=== PATIENT | male | born 1960 | race Caucasian/White ===

== ENCOUNTER → 2016-12-13 | Outpatient (CLI) | payer OTHER, SELFPAY ==
--- NOTE | 2016-12-15 13:26 | P.ARTDOP ---
Arterial Doppler LOWER EXTREMITY ARTERIAL DOPPLER: DATE OF SERVICE: 12/13/2016 Reason for study: Suspect PVD. Doppler waveforms: Multiphasic bilaterally except at the digital level. Pulse volume recording: Blunting distally especially on the left. Pressure gradients: Mild gradient below the knee on the right and mild gradient above the knee on the left with moderate gradient below the knee on the left. Ankle-brachial indices: 0.84 on the right and 81 on the left Toe pressures: 100 on the right, 80 on the left Impression: Mild infrapopliteal arterial disease on the right. Moderate left fem-pop disease on the left. Clinical correlation recommended.
== END | disposition home or self-care (01) ==
LOC: RADUSWWP 14:08
PROVIDERS: ATTEND Family Medicine
DX: I73.89 Other specified peripheral vascular diseases (principal)
CPT/HCPCS: 93923

== ENCOUNTER → 2018-11-02 | Outpatient (CLI) | payer OTHER ==
--- NOTE | 2018-11-02 16:01 | XR ---
EXAMINATION TYPE: XR chest 2V DATE OF EXAM: 11/02/2018 COMPARISON: 08/07/2015 HISTORY: Shortness of breath for one year TECHNIQUE: Frontal and lateral views of the chest are obtained. FINDINGS: There is new mild pulmonary vascular congestion in comparison to the prior. Heart size is mildly enlarged. No sizable pneumothorax or pleural effusion. Osseous structures are grossly intact. IMPRESSION: New mild pulmonary vascular congestion and mild cardiomegaly suggests underlying congest ken heart failure. Echocardiogram could be performed on a nonemergent basis.
== END | disposition home or self-care (01) ==
LOC: RADXRMAIN 13:56
PROVIDERS: ATTEND Family Medicine
DX: I51.7 Cardiomegaly (principal); I99.8 Other disorder of circulatory system
CPT/HCPCS: 71046

== ENCOUNTER 2018-11-17 22:41 | Inpatient (IN) | payer OTHER ==
[2018-11-17] MEDS ORDERED: SODIUM CHLORIDE 0.9% 1,000 ML IV STA (23:13)
[2018-11-17] MEDS ORDERED: DILTIAZEM DRIP BOLUS FROM BAG 1 MG SOLN IV ONE (23:13)
[2018-11-17] MEDS ORDERED: ASPIRIN 81 MG PO STA (23:13)
[2018-11-17] MEDS ORDERED: ENOXAPARIN 120 MG/0.8 ML SYRINGE SQ STA (23:14)
--- NOTE | 2018-11-17 23:22 | ED ---
Chest Pain HPI - General Chief Complaint: Chest Pain Stated Complaint: Chest Pain Time Seen by Provider: 11/17/18 22:51 Source: patient Mode of arrival: ambulatory Limitations: no limitations - History of Present Illness Initial Comments: This patient is a 58-year-old man who presents to be evaluated for chest pain, palpitations, dyspnea. The patient states that around 10 PM he was lying on the couch when he noticed that his heart started racing and he was having chest pain. He indicates the left chest. States it feels heavy. It is moderate intensity. He has not noted worsening or relieving factors. It is associated with shortness of breath. It does radiate to both arms. The patient denies history of previous heart disease other than hypertension. The patient did state that he had a 2-D echocardiogram performed in the hospital today. MD Complaint: chest pain Onset/Timin -: hour(s) Onset: during rest Pain Location: left chest Pain Radiation: RUE, LUE Severity: moderate Quality: heaviness Consistency: constant Improves With: nothing Worsens With: nothing Anginal Symptoms: dyspnea Treatments Prior to Arrival: none - Related Data Home Medications Medication Instructions Recorded Confirmed Lisinopril [Zestril] 20 mg PO TID 05/23/14 11/18/18 amLODIPine [Norvasc] 10 mg PO DAILY 05/23/14 11/18/18 Potassium Chloride 8 meq PO DAILY 11/17/18 11/18/18 Budesonide/Formoterol Fumarate 2 puff INHALATION RT-BID 11/18/18 11/18/18 [Symbicort 160-4.5 Mcg Inhaler] Cilostazol [Pletal] 100 mg PO BID 11/18/18 11/18/18 Furosemide [Lasix] 40 mg PO DAILY 11/18/18 11/18/18 Metoprolol Tartrate [Lopressor] 50 mg PO BID 11/18/18 11/18/18 Previous Rx's Medication Instructions Recorded Aspirin 81 mg PO DAILY #100 chew 11/19/18 Atorvastatin [Lipitor] 80 mg PO HS #30 tab 11/19/18 Clopidogrel [Plavix] 75 mg PO DAILY #30 tab 11/19/18 Nitroglycerin Sl Tabs [Nitrostat] 0.4 mg SUBLINGUAL Q5M PRN #20 tab 11/19/18 Rivaroxaban [Xarelto] 15 mg PO DAILY #30 tab 11/19/18 Allergies Allergy/AdvReac Type Severity Reaction Status Date / Time No Known Allergies Allergy Verified 11/17/18 23:33 Review of Systems ROS Statement: Those systems with pertinent positive or pertinent negative responses have been documented in the HPI. ROS Other: All systems not noted in ROS Statement are negative. Constitutional: Denies: fever, chills Respiratory: Reports: dyspnea. Denies: cough, wheezes Cardiovascular: Reports: chest pain, palpitations. Denies: orthopnea, edema, syncope Gastrointestinal: Denies: abdominal pain, nausea, vomiting Genitourinary: Denies: dysuria, hematuria Musculoskeletal: Denies: back pain Skin: Denies: rash Neurological: Denies: headache, weakness, numbness EKG Findings - EKG Results: EKG: interpreted by DUGLASD EKG shows: atrial fibrillation (Rate approximately 141 bpm) - Blocks, Lyons, Hypertrophy, ST Abn: AV and intraventricular conduction: intraventricular conduction delay QRS axis and voltage: right axis deviation (+90 to +180) Past Medical History Past Medical History: Hypertension, Pneumonia Additional Past Medical History / Comment(s): 08/07/15 Pt presented to [facility] ER with having SOB and cough for past 1-2 days. He felt hot and cold. He thougt he had pneumonia. He is being admitted with clinical impression of night sweats , NSTEMI. Other HX: L lower pneumonia 05/23/14, head injury as 4 yr old. History of Any Multi-Drug Resistant Organisms: None Reported Past Surgical History: Appendectomy Additional Past Surgical History / Comment(s): back cyst removed, colonoscopy- normal Past Anesthesia/Blood Transfusion Reactions: No Reported Reaction Additional Past Anesthesia/Blood Transfusion Reaction / Comment(s): Pt has never recieved blood. Past Psychological History: No Psychological Hx Reported Smoking Status: Former smoker Past Alcohol Use History: None Reported, Occasional Past Drug Use History: None Reported - Past Family History Father Family Medical History: Coronary Artery Disease (CAD) Additional Family Medical History / Comment(s): Father had a heart transplant. He in his mid 60's. Mother Family Medical History: Myocardial Infarction ([place]) Additional Family Medical History / Comment(s): Mother is alive and 78yrs old. General Exam Limitations: no limitations General appearance: alert, in no apparent distress, obese Head exam: Present: atraumatic, normocephalic Eye exam: Present: normal appearance. Absent: scleral icterus, conjunctival injection ENT exam: Present: mucous membranes dry Respiratory exam: Present: normal lung sounds bilaterally. Absent: respiratory distress, wheezes, rales, rhonchi, stridor Cardiovascular Exam: Present: tachycardia, irregular rhythm, normal heart sounds. Absent: systolic murmur, diastolic murmur, rubs, gallop GI/Abdominal exam: Present: soft. Absent: distended, tenderness, guarding, rebound, rigid, mass Extremities exam: Present: normal inspection, normal capillary refill. Absent: pedal edema, calf tenderness Back exam: Present: normal inspection. Absent: CVA tenderness (R), CVA tenderness (L) Neurological exam: Present: alert Skin exam: Present: warm, dry, intact, normal color. Absent: rash Course Vital Signs 11/17/18 11/17/18 11/18/18 22:42 23:01 01:03 Temperature 98.2 F Pulse Rate 142 H 96 Pulse Rate [ 140 H Apical] Respiratory 28 H 18 Rate Blood Pressure 188/95 142/88 O2 Sat by Pulse 97 96 Oximetry 11/18/18 01:25 Temperature 98.5 F Pulse Rate Pulse Rate [ Apical] Respiratory Rate Blood Pressure O2 Sat by Pulse Oximetry Chest Pain [facility] Patient is a 58-year-old man presenting with acute onset of chest pain and palpitations. He is found to be in new onset of atrial fibrillation and a rapid ventricular rate. We did obtain rate control and he did revert. And his symptoms had also resolved with medication. Patient is asymptomatic and initial troponin negative at time of admission. Critical Care Time Critical Care Time: Yes (40 minutes) Disposition Clinical Impression: Atrial fibrillation with rapid ventricular response, Chest pain Disposition: ADMITTED IP TO THIS HOSP Condition: Fair
--- NOTE | 2018-11-17 23:28 | XR ---
EXAMINATION TYPE: XR chest 1V portable DATE OF EXAM: 11/17/2018 COMPARISON: 11/02/2018 HISTORY: Dysrhythmia. TECHNIQUE: Single frontal view of the chest is obtained. FINDINGS: Heart size is normal. There is some coarse density in the lower lung newman consistent wit h scarring and patchy atelectasis. There is no heart failure. There are chest leads. Costophrenic ang les are fairly clear. IMPRESSION: Patchy atelectasis at the lung bases increased compared to last exam. No heart failure.
[2018-11-17 23:29] LABS: Basophils % (A) 1 %; Eosinophils # (A) 0.2 k/uL (0-0.7); Eosinophils % (A) 2 %; HCT 51.7 % (39.0-53.0); HGB 17.4 gm/dL (13.0-17.5); Lymphocytes # (A) 1.5 k/uL (1.0-4.8); Lymphocytes % (A) 19 %; MCHC 33.6 g/dL (31.0-37.0); MCV 80.3 fL (80.0-100.0); Mean Platelet Volume 6.9; Monocytes # (A) 0.8 k/uL (0-1.0); Monocytes % (A) 10 %; Neutrophils # (A) 4.9 k/uL (1.3-7.7); Neutrophils % (A) 65 %; Platelet Count 199 k/uL (150-450); RBC 6.44 m/uL (4.30-5.90); RDW 14.6 % (11.5-15.5); WBC 7.6 k/uL (3.8-10.6)
[2018-11-17] MEDS: DILTIAZEM 50 MG in SODIUM CHLORIDE 0.9% 40 ML IV SCH (23:31)
[2018-11-17 23:42] LABS: Albumin 4.4 g/dL (3.5-5.0); Calcium 9.6 mg/dL (8.4-10.2); Magnesium 1.8 mg/dL (1.6-2.3); Potassium 3.1 mmol/L (3.5-5.1); Total Bilirubin 0.6 mg/dL (0.2-1.3); Total Protein 8.2 g/dL (6.3-8.2)
[2018-11-17 23:44] LABS: D-Dimer 0.36 mg/L FEU (<0.60); INR 0.9 (<1.2); Partial Thromboplastin Time 25.2 sec (22.0-30.0); Prothrombin Time 9.5 sec (9.0-12.0)
[2018-11-17 23:46] LABS: Creatine Kinase 77 U/L (55-170)
[2018-11-17 23:59] LABS: Creatine Kinase MB 0.6 ng/mL (0.0-2.4); Troponin I <0.012 ng/mL (0.000-0.034)
[2018-11-18] LABS: Appearance,Urine Clear (Clear); Bilirubin,Urine Negative (Negative); Blood,Urine Small (Negative); Color,Urine Light Yellow; Glucose,Urine (UA) Negative (Negative); Hyaline Casts,Urine 1 /lpf (0-2); Ketones,Urine 1+ (Negative); Leukocyte Esterase,Urine Negative (Negative); Mucus,Urine Rare /hpf; Nitrite,Urine Negative (Negative); PH, Urine 6.5 (5.0-8.0); Protein,Urine 1+ (Negative); RBC,Urine 2 /hpf (0-5); Specific Gravity,Urine 1.011 (1.001-1.035); Urobilinogen,Urine <2.0 mg/dL (<2.0)
[2018-11-18] MEDS ORDERED: IBUPROFEN 400 MG TAB PO STA (00:10)
[2018-11-18] MEDS ORDERED: DILTIAZEM DRIP BOLUS FROM BAG 1 MG SOLN IV ONE (00:10)
[2018-11-18 00:15] LABS: Amphetamine Screen,Urine Not Detected (NotDetected); Barbiturate Screen,Urine Not Detected (NotDetected); Benzodiazepines Screen,Urine Not Detected (NotDetected); Cocaine Screen,Urine Not Detected (NotDetected); Methadone Screen, Urine Not Detected (NotDetected); Opiate Screen,Urine Not Detected (NotDetected); Oxycodone Screen, Urine Not Detected (NotDetected); Phencyclidine Screen,Urine Not Detected (NotDetected); Tricyclic Antidepressant,Urine Not Detected (NotDetected); Urn Cannabinoid Scrn Not Detected (NotDetected)
[2018-11-18] MEDS ORDERED: POTASSIUM BICARBONATE/CIT AC 20 MEQ TABLET.EFF PO ONE (00:23)
[2018-11-18] MEDS ORDERED: NITROGLYCERIN SL TABS 0.4 MG TAB SUBLINGUAL PRN ×3 (00:24→16:15)
[2018-11-18 01:57] VITALS: BMI 35.9
[2018-11-18] MEDS: DILTIAZEM 50 MG in SODIUM CHLORIDE 0.9% 40 ML IV SCH (03:14)
[2018-11-18 05:57] LABS: Creatine Kinase MB 2.8 ng/mL (0.0-2.4)
[2018-11-18 06:14] LABS: Calcium 9.6 mg/dL (8.4-10.2); Potassium 3.2 mmol/L (3.5-5.1)
[2018-11-18 06:16] LABS: Troponin I 0.112 ng/mL (0.000-0.034)
[2018-11-18] MEDS: amLODIPine 10 MG TAB PO SCH (08:10)
[2018-11-18] MEDS: LISINOPRIL 20 MG TAB PO SCH ×3 (08:10→20:47)
[2018-11-18] MEDS ORDERED: POTASSIUM CHLORIDE 8 MEQ PO SCH (09:00)
[2018-11-18] MEDS ORDERED: METOPROLOL TARTRATE 25 MG TAB PO SCH (09:00)
--- NOTE | 2018-11-18 09:37 | P.CRDCN ---
History of Present Illness Consult date: 11/18/18 Requesting physician: Armen Aguirre Consult reason: atrial fibrillation Chief complaint: Chest discomfort, heart racing History of present illness: This is a 58-year-old gentleman with history of hypertension, prior nicotine dependence, nondiabetic, no hyperlipidemia, strong family history of premature coronary artery disease in both of his parents and his brother, he also has a history of knee surgery in March of this year to the left knee, patient also states that he's been diagnosed with a blood clot in his legs and has been on a blood thinner for the past 2 years. He is unsure exactly of the medications he takes, he does get his prescriptions filled at [facility] so we will get a list of these. He also states that he follows with Dr. Esposito as his primary care doctor. According to the patient, since March of this year he states that he's been retaining fluid and is put on significant amount of weight , he also states that he's been mildly short of breath inmonths. He was started on an inhaler recently. He states that he was also over the past one week initiated on diuretics and potassium. He states that he's been urinating a significant amount and his weight has been coming down significantly. Patient was scheduled to undergo an echocardiogram with Doppler study yesterday afternoon which she had performed here at the hospital, he went home and at around 10:00 last night he states that he felt some chest discomfort and his heart was racing fast. He was mildly dizzy. Earlier in the day he states he generally just did not feel well but did not notice palpitations or chest discomfort earlier. Chest x-ray on arrival here atelectasis at the lung base. EKG on arrival here showed atrial fibrillation with rapid ventricular response. Blood pressure on arrival here 188/90, heart rate 140, 97% on room air. Blood pressure this morning 128/60 with a heart rate in the 60s, 92% on room air. White blood cell count 7.6, hemoglobin 17.4, platelet count 199. Sodium 136, potassium 3.2 this morning, BUN 38 and creatinine 1.5. On admission the potassium was 3.1, BUN 39 and creatinine 1.8. Magnesium 1.8. Initial troponin 0.012, subsequent troponin 0.112. TSH 2.9. Drug screen negative. Past Medical History Past Medical History: Hypertension, Pneumonia Additional Past Medical History / Comment(s): 08/07/15 Pt presented to [facility] ER with having SOB and cough for past 1-2 days. He felt hot and cold. He thougt he had pneumonia. He is being admitted with clinical impression of night sweats , NSTEMI. Other HX: L lower pneumonia 05/23/14, head injury as 4 yr old. History of Any Multi-Drug Resistant Organisms: None Reported Past Surgical History: Appendectomy Additional Past Surgical History / Comment(s): back cyst removed, colonoscopy- normal Past Anesthesia/Blood Transfusion Reactions: No Reported Reaction Additional Past Anesthesia/Blood Transfusion Reaction / Comment(s): Pt has never recieved blood. Past Psychological History: No Psychological Hx Reported Smoking Status: Former smoker Past Alcohol Use History: None Reported, Occasional Past Drug Use History: None Reported - Past Family History Father Family Medical History: Coronary Artery Disease (CAD) Additional Family Medical History / Comment(s): Father had a heart transplant. He in his mid 60's. Mother Family Medical History: Myocardial Infarction ([place]) Additional Family Medical History / Comment(s): Mother is alive and 78yrs old. Medications and Allergies Home Medications Medication Instructions Recorded Confirmed Type Lisinopril [Zestril] 20 mg PO TID 05/23/14 11/17/18 History amLODIPine [Norvasc] 10 mg PO DAILY 05/23/14 11/17/18 History Metoprolol Tartrate [Lopressor] 25 mg PO BID 08/07/15 11/17/18 History Potassium Chloride 8 meq PO DAILY 11/17/18 11/17/18 History Allergies Allergy/AdvReac Type Severity Reaction Status Date / Time No Known Allergies Allergy Verified 11/17/18 23:33 Physical Exam Vitals: Vital Signs Temp Pulse Pulse Resp BP BP Pulse Ox 11/18/18 04:00 97.0 F L 64 17 129/59 92 L 11/18/18 01:39 97.2 F L 80 18 143/64 93 L 11/18/18 01:25 98.5 F 11/18/18 01:03 96 18 142/88 96 11/17/18 23:01 140 H 11/17/18 22:42 98.2 F 142 H 28 H 188/95 97 Intake and Output 11/17/18 11/18/18 11/18/18 22:59 06:59 14:59 Intake Total 18.583 Balance 18.583 Intake: Intake, IV Titration 18.583 Amount Diltiazem 50 mg In Sodium 18.583 Chloride 0.9% 40 ml @ 5 MG/HR 5 mls/hr IV .Q10H [facility] Rx#:[id number] Other: Voiding Method Toilet # Voids 1 Weight 113.398 kg 114.97 kg PHYSICAL EXAMINATION: GENERAL: 58-year-old gentleman in no acute distress at the time of my examination HEENT: Head is atraumatic, normocephalic. Pupils equal, round. Sclera anicteric. Conjunctiva are clear. Mucous membranes of the mouth are moist. Neck is supple. There is no elevated jugular venous pressure. No carotid bruit is heard. HEART EXAMINATION: Heart S1, S2 normal. No murmur or gallop heard. CHEST EXAMINATION: Lungs are clear to auscultation and precussion. No chest wall tenderness is noted on palpation or with deep breathing. ABDOMEN: Soft, obese, nontender. Bowel sounds are heard. No organomegaly noted. EXTREMITIES: 2+ peripheral pulses with trace evidence of peripheral edema, right leg greater than left, no calf tenderness noted. NEUROLOGIC patient is awake, alert and oriented 3. . Results 11/17/18 22:37 11/18/18 06:00 Cardiac Enzymes 11/17/18 11/17/18 11/18/18 Range/Units 22:37 22:37 04:32 AST 27 (17-59) U/L CK-MB (CK-2) 0.6 2.8 H (0.0-2.4) ng/mL Troponin I <0.012 0.112 H* (0.000-0.034) ng/mL Coagulation 11/17/18 Range/Units 22:37 PT 9.5 (9.0-12.0) sec APTT 25.2 (22.0-30.0) sec CBC 11/17/18 Range/Units 22:37 WBC 7.6 (3.8-10.6) k/uL RBC 6.44 H (4.30-5.90) m/uL Hgb 17.4 (13.0-17.5) gm/dL Hct 51.7 (39.0-53.0) % Plt Count 199 (150-450) k/uL Comprehensive Metabolic Panel 11/17/18 11/18/18 Range/Units 22:37 06:00 Sodium 139 136 L (137-145) mmol/L Potassium 3.1 L 3.2 L (3.5-5.1) mmol/L Chloride 98 101 (98-107) mmol/L Carbon Dioxide 27 24 (22-30) mmol/L BUN 39 H 38 H (9-20) mg/dL Creatinine 1.89 H 1.50 H (0.66-1.25) mg/dL Glucose 138 H 130 H (74-99) mg/dL Calcium 9.6 9.6 (8.4-10.2) mg/dL AST 27 (17-59) U/L ALT 42 (21-72) U/L Alkaline Phosphatase 141 H (38-126) U/L Total Protein 8.2 (6.3-8.2) g/dL Albumin 4.4 (3.5-5.0) g/dL Current Medications Generic Name Dose Route Start Last Admin Trade Name Freq PRN Reason Stop Dose Admin Amlodipine Besylate 10 mg 11/18/18 09:00 11/18/18 08:10 Norvasc PO 10 mg DAILY ZANDRA Administration Aspirin 325 mg 11/19/18 09:00 Aspirin PO DAILY [facility] Diltiazem HCl 50 mg/ Sodium 50 mls @ 5 mls/hr 11/17/18 23:15 11/18/18 03:14 Chloride IV 5 mg/hr .Q10H ZANDRA 5 mls/hr Administration 5 MG/HR Lisinopril 20 mg 11/18/18 09:00 11/18/18 08:10 Zestril PO 20 mg TID ZANDRA Administration Metoprolol Tartrate 25 mg 11/18/18 09:00 11/18/18 08:10 Lopressor PO 25 mg BID ZANDRA Administration Nitroglycerin 0.4 mg 11/18/18 00:24 Nitrostat SUBLINGUAL Q5M PRN Chest Pain Potassium Chloride [ 8 meq 11/18/18 09:00 11/18/18 08:10 Potassium Chloride] PO Not Given 8 Meq DAILY ZANDRA Intake and Output 11/17/18 11/18/18 11/18/18 22:59 06:59 14:59 Intake Total 18.583 Balance 18.583 Intake: Intake, IV Titration 18.583 Amount Diltiazem 50 mg In Sodium 18.583 Chloride 0.9% 40 ml @ 5 MG/HR 5 mls/hr IV .Q10H [facility] Rx#:[id number] Other: Voiding Method Toilet # Voids 1 Weight 113.398 kg 114.97 kg 11/17/18 22:37 11/18/18 06:00 EKG Interpretations (text) EKG on admission showed atrial fibrillation with rapid ventricular response on specific ST-T wave changes Assessment and Plan Plan: Assessment and plan #1 symptoms of chest discomfort with associated heart racing and palpitations. EKG on admission showed atrial fibrillation with rapid ventricular response, patient currently in normal sinus rhythm. Initial troponin 0.012, subsequent troponin 0.112. Patient had an echo performed in the hospital yesterday which revealed a normal left ventricular systolic function. TSH is normal. CTA negative for pulmonary embolism. D-dimer negative. #2 Hypokalemia, being replaced #3 renal insufficiency, likely secondary to dehydration and recent use of Lasix. Creatinine yesterday 1.8, 1.5 this morning. #4 hypertension, uncontrolled #5 new-onset atrial fibrillation, rapid ventricular response, paroxysmal. Currently in normal sinus rhythm. TSH 2.9. #6 hyperlipidemia, untreated #7 history of DVT for which patient takes a blood thinner, he is unsure at this time of what blood thinner it is, we'll verify medications. #8 strong family history of premature coronary artery disease #9 recent left knee surgery in March of this year #10 abnormality in troponin, could be secondary to A. fib with RVR, we will obtain a third set. Plan We will continue to replace the patient's potassium. Continue with IV fluids at 50 mL per hour. Obtain a third troponin value. I also discussed the importance of being on anticoagulation for stroke prevention with the patient. Further recommendations will be based on these findings and patient's clinical course. DNP note has been reviewed, I agree with a documented findings and plan of care. Patient was seen and examined.
[2018-11-18] MEDS ORDERED: ATORVASTATIN 80 MG TAB PO STA (10:09)
[2018-11-18] MEDS ORDERED: ALPRAZolam 0.5 MG TAB PO PRN (10:09)
[2018-11-18] MEDS ORDERED: ALPRAZolam 0.25 MG TAB PO PRN (10:09)
[2018-11-18] MEDS ORDERED: ASPIRIN 325 MG TAB PO STA (10:09)
[2018-11-18] MEDS ORDERED: SODIUM CHLORIDE 0.9% 1,000 ML in EMPTY BAG 1 BAG IV ONE (10:09)
[2018-11-18] MEDS ORDERED: HEPARIN SODIUM,PORCINE 5,000 UNIT/ML 1 ML VIAL IV PRN (10:11)
[2018-11-18] MEDS ORDERED: HEPARIN SODIUM,PORCINE 5,000 UNIT/ML 1 ML VIAL IV ONE (10:11)
[2018-11-18] MEDS ORDERED: HEPARIN SOD,PORK IN 0.45% NACL 25,000 UNIT in 0.45% NACL 1 250ML.BAG IV SCH (10:15)
[2018-11-18 10:49] LABS: Creatine Kinase MB 3.7 ng/mL (0.0-2.4)
[2018-11-18 11:00] LABS: Troponin I 0.291 ng/mL (0.000-0.034)
[2018-11-18 11:00] LABS: Basophils % (A) 1 %; Eosinophils # (A) 0.1 k/uL (0-0.7); Eosinophils % (A) 2 %; HCT 47.3 % (39.0-53.0); HGB 15.3 gm/dL (13.0-17.5); Lymphocytes # (A) 1.2 k/uL (1.0-4.8); Lymphocytes % (A) 22 %; MCH 26.2 pg (25.0-35.0); MCHC 32.3 g/dL (31.0-37.0); MCV 81.2 fL (80.0-100.0); Mean Platelet Volume 6.7; Monocytes # (A) 0.4 k/uL (0-1.0); Monocytes % (A) 8 %; Neutrophils # (A) 3.6 k/uL (1.3-7.7); Neutrophils % (A) 66 %; Platelet Count 175 k/uL (150-450); RBC 5.83 m/uL (4.30-5.90); RDW 14.4 % (11.5-15.5); WBC 5.5 k/uL (3.8-10.6)
[2018-11-18 11:10] LABS: INR 0.9 (<1.2); Prothrombin Time 9.9 sec (9.0-12.0)
--- NOTE | 2018-11-18 13:39 | HP ---
HISTORY AND PHYSICAL CHIEF COMPLAINT: Rapid heart beating, dizziness and chest pressure which was thought to be indigestion. HISTORY OF PRESENT ILLNESS: This is the first admission for this 58-year-old white male. He was home when he suddenly developed dizziness and lightheadedness with slight shortness of breath and a slight indigestion and he came to emergency room. He was found to be in atrial fibrillation with rapid ventricular response. He has never had this before. He has never had any history in his life or any palpitations. He has a history of hypertension and he takes lisinopril 20 mg once a day and potassium. He is also on amlodipine 10 mg a day, metoprolol 50 mg twice a day, Lasix 40 mg once a day, Pletal 100 mg b.i.d., chlorthalidone 25 mg once a day, and Symbicort inhaler. In the emergency room, his pulse is around 140, and his blood pressure is 188/95. He had laboratory studies demonstrated normal CBC and his potassium was slightly low at 3.2. His troponin was elevated with a CK-MB which is also slightly high. BUN is 38 with a creatinine 1.5. It is not known if he has renal disease or not. Blood sugar was 130. REVIEW OF SYSTEMS: He has had no CVAs, TIAs, change in vision or hearing, syncope, cough, hemoptysis, pleurisy, sputum production, murmurs, rheumatic fever, history of angina or heart disease, orthopnea, PND, abdominal pain, nausea, vomiting, hematemesis, etc. He does have some trouble with GERD. He has had no diarrhea, diverticulosis, diverticulitis, melena, jaundice, liver disease, etc. He has had no history of renal disease, renal failure, dysuria, frequency, urgency, nocturia, hesitancy, diabetes, etc. PAST MEDICAL HISTORY: Past medical history, family history and personal and social histories are interesting. He has a history of extensive malignancies and heart disease. His father had a heart transplant. They do not know what the underlying pathology was. Mother had CAD. He has a sister and brothers with coronary artery disease as well. There were numerous malignancies in the family also. Surgically he has had a procedure on the left knee and appendectomy and a cyst removed from the back. He is not allergic to anything. He probably has COPD. He used to smoke but he stopped in the recent past. He does not have an alcohol issue. PHYSICAL EXAM: VITAL SIGNS: Blood pressure 129/59 with a pulse that is now down to 64 and respirations of 18. He is afebrile. GENERAL: He appeared to be well developed, well nourished and slightly overweight. Skin color is normal skin is warm, dry. Lymph nodes not enlarged. HEENT: Head, ears, eyes, nose, mouth, and throat were normal neck veins not distended. Thyroid not palpable. Carotids normal. Chest is clear. Cardiac exam demonstrates normal sinus rhythm and no murmurs or extra sounds. The abdomen is slightly protuberant, soft without any masses or visceromegaly. EXTREMITIES: Normal and calves were soft. There is no significant edema. Pulses are good. IMPRESSION: 1. New onset atrial fibrillation with rapid ventricular response. 2. Slight chest pain. 3. Elevated troponin. 4. Chronic obstructive pulmonary disease. 5. History that is compatible with peripheral vascular occlusive disease. PLAN: 1. Bed rest. 2. IV fluids. 3. Serial EKGs and enzymes. 4. Cardiology consult. 5. He had a echocardiogram yesterday. MMODL / IJN: [id number] /
[2018-11-18] MEDS ORDERED: VERAPAMIL 2.5 MG/ML 2 ML AMP ONE (14:06)
[2018-11-18] MEDS ORDERED: LIDOCAINE 1% INJ 10MG/ML (20 ML MDV) ONE (14:06)
[2018-11-18] MEDS ORDERED: fentaNYL (PF) 50 MCG/ML 2 ML AMP ONE (14:11)
[2018-11-18] MEDS ORDERED: IV FLUID CONTINUATION 1,000 ML IV ONE (14:11)
[2018-11-18] MEDS ORDERED: fentaNYL (PF) 50 MCG/ML 2 ML AMP IV ONE (14:15)
[2018-11-18] MEDS ORDERED: MIDAZOLAM 2 MG/2 ML VIAL IV ONE (14:15)
[2018-11-18] MEDS ORDERED: LIDOCAINE 2% INJ 20 MG/ML SQ ONE (14:19)
[2018-11-18] MEDS: VERAPAMIL SYRINGE (5 MG/10 ML) IV ONE ×2 (14:29→16:04)
[2018-11-18] MEDS ORDERED: HEPARIN SODIUM 1,000 UN/ML (10ML VL) ONE (14:30)
[2018-11-18] MEDS ORDERED: HEPARIN SODIUM 1,000 UN/ML (10ML VL) IV ONE (14:30)
--- NOTE | 2018-11-18 15:06 | P.CARDCATH ---
Date of Procedure: 11/18/18 Preoperative Diagnosis: Non-STEMI Postoperative Diagnosis: Triple-vessel disease Procedure(s) Performed: Left heart catheterization without left ventriculography Description of Procedure: HISTORY: This is a 58-year-old gentleman with history of peripheral vascular disease and hypertension who has been experiencing progressive shortness of breath and also edema. He was admitted to the hospital with chest pain and palpitation and was found to be in atrial fibrillation with a rapid ventricular response. His troponins are elevated suggestive of non-ST elevation [place]. Patient is advised to have a cardiac catheterization for definitive diagnosis. CONSENT:I have discussed the risks, benefits and alternative therapies for the above-mentioned procedure and for both sedation/analgesia as well as necessary blood product administration, if indicated, as they pertain to this patient. The patient has indicated understanding and acceptance of the risks and procedures discussed. PROCEDURE: Patient was brought to the lab in a fasting state. Patient was given some IV sedation. The right wrist is infiltrated with lidocaine and right radial artery was entered using Seldinger technique. A 6-Yi catheter was left in place and selective coronary arteriography was performed. Patient tolerated the procedure well. Patient is waiting to be evaluated by Dr. FERN Wade. Patient most probably may need bypass surgery, especially if the LAD lesion is felt to be significant. FFR may be considered for for further evaluation Conscious Sedation: Versed 1mg Fentanyl 50 g Duration 34minutes HEMODYNAMICS: The aortic pressure is about 140/70. The end-diastolic pressure is 25-30. There was no gradient across the aortic valve SELECTIVE CORONARY ARTERIOGRAPHY: LEFT MAIN: This is a long with diffuse mild disease without any critical lesions THE LEFT ANTERIOR DESCENDING CORONARY ARTERY: This is a large caliber vessel with about 60-70% stenosis in the proximal portion followed by an ectatic area. Rest of the LAD is free of occlusive disease THE LEFT CIRCUMFLEX AND IS CORONARY ARTERY:. This is a good caliber vessel giving rise to good-sized OM branch. The OM branch is a 95% stenosis proximally. The main circumflex has diffuse plaque without any critical lesions. There are collaterals from the circumflex to the right THE RIGHT CORONARY ARTERY:. This is totally occluded in the proximal portion. The distal RCA is filled by collateral from the left carotid system consist of small PDA and PLV LEFT VENTRICULOGRAPHY:. This is not performed FINAL IMPRESSION: Triple-vessel disease with total occlusion of the RCA with collaterals from the left system to the distal RCA , critical lesion in the OM branch of the circumflex and intermediate disease in the proximal LAD of about 60-70%. PLAN: Revascularization. If the LAD is felt to be critical, patient may benefit from, a bypass surgery with the GAMBINO graft to the LAD, vein graft to the OM and vein graft to the distal RCA. FFR may be considered to establish the severity of the LAD. Dr. FERN Wade to see the patient for further evaluation PROGNOSIS: Fair
[2018-11-18] MEDS ORDERED: BIVALIRUDIN BOLUS 250 MG/50 ML IV ONE (15:34)
[2018-11-18] MEDS ORDERED: BIVALIRUDIN 250 MG in SODIUM CHLORIDE 0.9% 50 ML IV ONE (15:35)
[2018-11-18] MEDS ORDERED: MORPHINE SULFATE 4 MG/ML SYRINGE ONE (15:41)
[2018-11-18] MEDS: NITROGLYCERIN 1000MCG/10ML SYRINGE INTRACORON ONE ×3 (15:42→16:02)
[2018-11-18] MEDS ORDERED: MORPHINE SULFATE 4 MG/ML SYRINGE IV ONE (15:43)
[2018-11-18] MEDS ORDERED: IOPAMIDOL-370 125ML BTL INJ ONE (15:44)
[2018-11-18] MEDS ORDERED: HYDROmorphone 1 MG/ML 1 ML SYRINGE IVP ONE (15:53)
[2018-11-18] MEDS ORDERED: HYDROmorphone 1 MG/ML 1 ML SYRINGE IVP STA (16:01)
[2018-11-18] MEDS ORDERED: TICAGRELOR 90 MG TAB ONE (16:05)
[2018-11-18] MEDS ORDERED: IOPAMIDOL-370 100ML BTL INJ ONE (16:06)
[2018-11-18] MEDS ORDERED: TICAGRELOR 90 MG TAB PO ONE (16:08)
[2018-11-18] MEDS ORDERED: MAG HYDROX/AL HYDROX/SIMETH 30 ML CUP PO PRN (16:15)
[2018-11-18] MEDS ORDERED: ZOLPIDEM 5 MG TAB PO PRN (16:15)
[2018-11-18] MEDS ORDERED: RX INFO: IV CONTRAST WAS GIVEN 1 EACH MISC MISCELLANE PRN (16:15)
[2018-11-18] MEDS ORDERED: ATROPINE SULFATE 0.1 MG/ML 10ML SYRINGE IV PRN (16:15)
--- NOTE | 2018-11-18 16:50 | ECHOF ---
Referral Reason:afib MEASUREMENTS -------- HEIGHT: 162.6 cm WEIGHT: 114.8 kg BP: FINDINGS -------- Limited Study for LV Function: Echo Done 11/17/18. Overall left ventricular systolic function is normal with, an EF between 55 - 60 %. 5.0mg OF Lumason UTLIZED: 2 OR MORE WALL SEGMENTS NOT VISUALIZED. CONCLUSIONS -------- 1. Limited Study for LV Function: Echo Done 11/17/18. 2. 5.0mg OF Lumason UTLIZED: 2 OR MORE WALL SEGMENTS NOT VISUALIZED. ATTRACTIONS ASSOCIATE: Kaylen Quintanilla RDCS
[2018-11-18] MEDS: SODIUM CHLORIDE 0.9% 1,000 ML IV SCH (18:17)
[2018-11-18] MEDS ORDERED: Potassium Replacement Protocol 1 EACH MISC MISCELLANE PRN (18:56)
--- NOTE | 2018-11-18 19:41 | PTCA ---
PERCUTANEOUSTRANS CORORONARY ANGIOGRAPHY DATE OF SERVICE: 11/18/2018 PROCEDURE: PTCA and stenting of proximal portion of the first obtuse marginal branch of circumflex with a drug-eluting stent. PERFORMED BY: Dr. Haven Wade. SEDATION: Moderate conscious sedation time was 44 minutes. CLINICAL INFORMATION: Mr. Werner Yu is a 58-year-old gentleman with history of hypertension, admitted to the hospital with chest pain, had a troponin elevation suggestive of non-ST elevation [place]. He was seen and evaluated by Dr. Barry who performed a cardiac cath which revealed that the RCA was chronically occluded with collaterals from the left system. LAD had about a 50-55 percent proximal very small lesion and the circumflex marginal had a 95% lesion. This was a very high obtuse marginal. The tunica-biloxi circumflex was providing collaterals to the distal RCA and the tunica-biloxi circumflex had about a 40% lesion. The 1st OM had a 95% lesion with a very tortuous lesion located at a bend. He was advised intervention that was performed in the same setting. The patient's LAD disease was moderate and he would require an FFR later on and intervention if necessary. PROCEDURE NOTE: The existing 6-Omani introducer in the right radial artery was used to perform the procedure. I used a Voda 3.5 left catheter to cannulate the left coronary artery. A run-through wire was used to cross the lesion. I advanced and kept another wire in the circumflex groove branch. A 3.0 caliber 8 mm long NC Trek balloon was used to pre- dilate the lesion. I then deployed a 12 mm long 3.25 caliber Xience stent at 14 atmospheres. The proximal portion of the stent did not open very well. I addressed this with a NC trek 3.25 8 mm, and I was able to expand the stent very nicely. Excellent angiographic result was achieved. Patient had significant chest pain and precordial ST elevation. He received Angiomax bolus and infusion. He also received 180 mg of Brilinta. The sheath was taken out and TR band applied and patient was sent to the room in a stable condition. Excellent angiographic result without complication was achieved. The results were discussed with the patient and his . Moderate conscious sedation time was 44 minutes. Patient was administered Versed, morphine and 1 mg of Dilaudid as well. MMODL / IJN: [id number] /
[2018-11-18] MEDS: SYMBICORT 160-4.5 MCG INHALER INHALATION SCH (20:36)
[2018-11-18] MEDS: POTASSIUM CHLORIDE ER 20 MEQ TAB.ER PO SCH ×2 (20:47→23:12)
[2018-11-18] MEDS: METOPROLOL TARTRATE 25 MG TAB PO SCH (20:48)
[2018-11-18] MEDS ORDERED: CILOSTAZOL 100 MG TAB PO SCH (21:00)
[2018-11-18] MEDS ORDERED: ATORVASTATIN 80 MG TAB PO SCH (21:00)
[2018-11-18] MEDS ORDERED: METOPROLOL TARTRATE 50 MG TAB PO SCH (21:00)
[2018-11-19 06:18] LABS: Basophils % (A) 0 %; Eosinophils # (A) 0.2 k/uL (0-0.7); Eosinophils % (A) 3 %; HCT 44.7 % (39.0-53.0); HGB 14.4 gm/dL (13.0-17.5); Lymphocytes # (A) 0.8 k/uL (1.0-4.8); Lymphocytes % (A) 13 %; MCHC 32.2 g/dL (31.0-37.0); Mean Platelet Volume 6.8; Monocytes # (A) 0.6 k/uL (0-1.0); Monocytes % (A) 10 %; Neutrophils # (A) 4.3 k/uL (1.3-7.7); Neutrophils % (A) 71 %; Platelet Count 186 k/uL (150-450); RBC 5.52 m/uL (4.30-5.90); RDW 14.5 % (11.5-15.5); WBC 6.1 k/uL (3.8-10.6)
[2018-11-19 06:28] LABS: Calcium 8.5 mg/dL (8.4-10.2); Potassium 3.7 mmol/L (3.5-5.1)
[2018-11-19] MEDS: POTASSIUM CHLORIDE ER 20 MEQ TAB.ER PO SCH (07:07)
[2018-11-19] MEDS: SODIUM CHLORIDE 0.9% 1,000 ML IV SCH (07:08)
[2018-11-19 08:10] VITALS: TEMP 97.7
[2018-11-19] MEDS: METOPROLOL TARTRATE 25 MG TAB PO SCH (08:32)
[2018-11-19] MEDS: amLODIPine 10 MG TAB PO SCH (08:32)
[2018-11-19] MEDS: LISINOPRIL 20 MG TAB PO SCH (08:32)
[2018-11-19] MEDS: SYMBICORT 160-4.5 MCG INHALER INHALATION SCH (08:33)
[2018-11-19] MEDS ORDERED: ASPIRIN 81 MG PO SCH (09:00)
[2018-11-19] MEDS ORDERED: FUROSEMIDE 40 MG TAB PO SCH (09:00)
[2018-11-19] MEDS ORDERED: CHLORTHALIDONE 25 MG TAB PO SCH (09:00)
[2018-11-19] MEDS ORDERED: ASPIRIN 325 MG TAB PO SCH (09:00)
[2018-11-19] MEDS ORDERED: CLOPIDOGREL 75 MG TAB PO SCH (09:00)
[2018-11-19 12:38] VITALS: BP 149/82; PULSE 56; RESP 16
[2018-11-19] MEDS ORDERED: RIVAROXABAN 15 MG TAB PO STA (12:54)
--- NOTE | 2018-11-19 14:24 | P.PN ---
Subjective Progress Note Date: 11/19/18 This is a 58-year-old gentleman with history of hypertension, prior nicotine dependence, nondiabetic, no hyperlipidemia, strong family history of premature coronary artery disease in both of his parents and his brother, he also has a history of knee surgery in March of this year to the left knee, patient also states that he's been diagnosed with a blood clot in his legs and has been on a blood thinner for the past 2 years. He is unsure exactly of the medications he takes, he does get his prescriptions filled at [facility] so we will get a list of these. He also states that he follows with Dr. Esposito as his primary care doctor. According to the patient, since March of this year he states that he's been retaining fluid and is put on significant amount of weight , he also states that he's been mildly short of breath inmonths. He was started on an inhaler recently. He states that he was also over the past one week initiated on diuretics and potassium. He states that he's been urinating a significant amount and his weight has been coming down significantly. Patient was scheduled to undergo an echocardiogram with Doppler study yesterday afternoon which she had performed here at the hospital, he went home and at around 10:00 last night he states that he felt some chest discomfort and his heart was racing fast. He was mildly dizzy. Earlier in the day he states he generally just did not feel well but did not notice palpitations or chest discomfort earlier. Chest x-ray on arrival here atelectasis at the lung base. EKG on arrival here showed atrial fibrillation with rapid ventricular response. Blood pressure on arrival here 188/90, heart rate 140, 97% on room air. Blood pressure this morning 128/60 with a heart rate in the 60s, 92% on room air. White blood cell count 7.6, hemoglobin 17.4, platelet count 199. Sodium 136, potassium 3.2 this morning, BUN 38 and creatinine 1.5. On admission the potassium was 3.1, BUN 39 and creatinine 1.8. Magnesium 1.8. Initial troponin 0.012, subsequent troponin 0.112. TSH 2.9. Drug screen negative. 11/19: Yesterday, patient underwent heart catheterization with Dr. Barry that revealed triple vessel disease with total occlusion of the RCA with collaterals from the left system to the distal RCA, critical lesion in the OM branch of circumflex and intermediate disease in the proximal LAD of about 60-70 %. Patient is status post PTCA and stent in the proximal portion of the first obtuse marginal branch of circumflex with drug-eluting stent performed by Dr. FERN Wade. heart rate is running in the 50s, pulse ox 93% on room air. potassium 3.7, BUN 21 and creatinine 1.18. discharge planned today by Dr. Aguirre. In addition to his current discharge medications, we will add and Xarelto 15 mg daily due to his A. fib. He has been counseled regarding monitoring for any bleeding at home. Patient is to follow-up with Dr. Barry in a week. Objective - Vital Signs Vital signs: Vital Signs Temp 97.7 F 11/19/18 08:00 Pulse 56 L 11/19/18 12:00 Resp 16 11/19/18 12:00 BP 149/82 11/19/18 12:00 Pulse Ox 93 L 11/19/18 12:00 Intake & Output 11/18/18 11/19/18 11/19/18 18:59 06:59 18:59 Intake Total 285 465 240 Balance 285 465 240 Weight 114.9 kg Intake: IV 285 Intake, IV Titration 225 Amount Sodium Chloride 0.9% 1, 225 000 ml @ 75 mls/hr IV . [id number] [facility] Rx#:[id number] Oral 0 240 240 Other: Voiding Method Toilet # Voids 1 - Exam GENERAL: 58-year-old gentleman in no acute distress at the time of my examination. patient is dressed and prepared for discharge. HEENT: Head is atraumatic, normocephalic. Pupils equal, round. Sclera anicteric. Conjunctiva are clear. Mucous membranes of the mouth are moist. Neck is supple. There is no elevated jugular venous pressure. No carotid bruit is heard. HEART EXAMINATION: Heart S1, S2 normal. No murmur or gallop heard. CHEST EXAMINATION: Lungs are clear to auscultation and precussion. No chest wall tenderness is noted on palpation or with deep breathing. ABDOMEN: Soft, obese, nontender. Bowel sounds are heard. No organomegaly noted. EXTREMITIES: 2+ peripheral pulses with trace evidence of peripheral edema, right leg greater than left, no calf tenderness noted. NEUROLOGIC patient is awake, alert and oriented 3. - Labs CBC & Chem 7: 11/19/18 05:39 11/19/18 05:39 Labs: Abnormal Lab Results - Last 24 Hours (Table) 11/19/18 11/19/18 11/19/18 Range/Units 00:01 05:39 05:39 Lymphocytes # 0.8 L (1.0-4.8) k/uL Potassium 3.2 L (3.5-5.1) mmol/L BUN 21 H (9-20) mg/dL Glucose 109 H (74-99) mg/dL Triglycerides 170 H (<150) mg/dL Cholesterol 229 H (<200) mg/dL LDL Cholesterol, Calc 159 H (0-99) mg/dL HDL Cholesterol 36 L (40-60) mg/dL Assessment and Plan Plan: #1 non-ST elevated myocardial infarction status post heart catheterization and stentof the proximal first obtuse marginal branch of circumflex with drug- eluting stent. #2 Hypokalemia, status post replaced #3 acute kidney injury with chronic kidney disease stage II. #4 hypertension, uncontrolled #5 new-onset atrial fibrillation, rapid ventricular response, paroxysmal. Currently in normal sinus rhythm. TSH 2.9. #6 hyperlipidemia, untreated #7 history of DVT for which patient takes a blood thinner, he is unsure at this time of what blood thinner it is, we'll verify medications. #8 strong family history of premature coronary artery disease #9 recent left knee surgery in March of this year #10 abnormality in troponin, could be secondary to A. fib with RVR, we will obtain a third set. Plan patient has been prepared for discharge by Dr. Aguirre. Additional medication, Xarelto, added for A. fiband prescription sent to his pharmacy. Patient to receive a dose before he is discharged. Patient is currently in a normal sinus rhythm. Patient is cleared for discharge from cardiology. Nurse Practitioner note has been reviewed, I agree with a documented findings and plan of care. Patient was seen and examined.
--- NOTE | 2018-11-19 15:03 | DS ---
DISCHARGE SUMMARY CHIEF COMPLAINT: Rapid heart beating. HISTORY OF PRESENT ILLNESS AND PHYSICAL EXAM: Details of this man's history and physical can be found in the initial workup. LABORATORY STUDIES: While he was in the hospital, he had laboratory studies, details of which can be found in the laboratory section of his chart. COURSE IN HOSPITAL: After admission, he was placed on bedrest, started on intravenous fluids and seen by Cardiology. Troponins were up and he was taken for cardiac cath and 2 stents were placed. He is doing well. It was felt that he could go home on the and follow up in our office as well as Cardiology. FINAL DIAGNOSES: 1. Acute myocardial infarction. 2. Atrial fibrillation with RVR. OPERATIONS: Stent placement. CONSULT: Cardiology. He is improved. MMODL / IJN: [id number] /
== END 2018-11-19 13:14 | disposition home or self-care (01) | DRG 247 ==
LOC: EC 22:41 → 3SCARD 11-18 00:16
PROVIDERS: ADMIT Family Medicine; ATTEND Family Medicine
PROC: B2111ZZ Fluoroscopy of Multiple Coronary Arteries using Low Osmolar Contrast (ICD-10-PCS; 2018-11-18)
PROC: 027034Z Dilation of Coronary Artery, One Artery with Drug-eluting Intraluminal Device, Percutaneous Approach (ICD-10-PCS; principal; 2018-11-18 13:56)
PROC: 4A023N7 Measurement of Cardiac Sampling and Pressure, Left Heart, Percutaneous Approach (ICD-10-PCS; 2018-11-18 13:56)
DX: I21.4 Non-ST elevation (NSTEMI) myocardial infarction (principal); J98.11 Atelectasis; E78.5 Hyperlipidemia, unspecified; E86.0 Dehydration; E87.6 Hypokalemia; I25.10 Atherosclerotic heart disease of native coronary artery without angina pectoris; J44.9 Chronic obstructive pulmonary disease, unspecified; I12.9 Hypertensive chronic kidney disease with stage 1 through stage 4 chronic kidney disease, or unspecified chronic kidney disease; N18.2 Chronic kidney disease, stage 2 (mild); I48.0 Paroxysmal atrial fibrillation; I73.9 Peripheral vascular disease, unspecified; Z79.01 Long term (current) use of anticoagulants; Z79.02 Long term (current) use of antithrombotics/antiplatelets; Z79.51 Long term (current) use of inhaled steroids; Z79.82 Long term (current) use of aspirin; Z79.899 Other long term (current) drug therapy; Z87.891 Personal history of nicotine dependence; Z86.718 Personal history of other venous thrombosis and embolism; Z87.01 Personal history of pneumonia (recurrent); Z90.49 Acquired absence of other specified parts of digestive tract; Z82.49 Family history of ischemic heart disease and other diseases of the circulatory system
CPT/HCPCS: 36415; 71045; 80048; 80053; 80061; 80306; 81001; 82550; 82553; 83735; 84132; 84443; 84484; 85025; 85379; 85610; 85730; 93005; 93308; 93458; 94640; 94760; 96361; 96372; 96374; 99291; C1874

== ENCOUNTER → 2018-11-17 | Outpatient (CLI) | payer OTHER ==
--- NOTE | 2018-11-17 21:25 | ECHOF ---
Referral Reason:I50.9 Heart Failure MEASUREMENTS -------- HEIGHT: 188.0 cm WEIGHT: 113.4 kg BP: RVIDd: 2.8 cm (< 3.3) IVSd: 1.3 cm (0.6 - 1.1) LVIDd: 4.4 cm (3.9 - 5.3) LVPWd: 1.2 cm (0.6 - 1.1) IVSs: 1.6 cm LVIDs: 3.2 cm LVPWs: 1.5 cm LAESV Index (A-L): 13.00 ml/m Ao Diam: 2.8 cm (2.0 - 3.7) AV Cusp: 2.2 cm (1.5 - 2.6) LA Diam: 3.7 cm (2.7 - 3.8) MV EXCURSION: 17.354 mm (> 18.000) MV EF SLOPE: 68 mm/s (70 - 150) EPSS: 0.4 cm MV E Jan: 0.67 m/s MV DecT: 296 ms MV A Jan: 0.82 m/s MV E/A Ratio: 0.81 RAP: 5.00 mmHg RVSP: 12.80 mmHg FINDINGS -------- Sinus rhythm. This was a technically adequate study. The left ventricular size is normal. There is moderate concentric left ventricular hypertrophy. O verall left ventricular systolic function is normal with, an EF between 55 - 60 %. The right ventricle is normal in size. The left atrial size is normal. The right atrial size is normal. There is mild aortic valve sclerosis. There is no evidence of aortic regurgitation. Mild mitral annular calcification present. Mild mitral regurgitation is present. Mild tricuspid regurgitation present. There is no evidence of pulmonary hypertension. The right v entricular systolic pressure, as measured by Doppler, is 12.80mmHg. The pulmonic valve was not well visualized. The aortic root size is normal. There is no pericardial effusion. CONCLUSIONS -------- 1. The left ventricular size is normal. 2. There is moderate concentric left ventricular hypertrophy. 3. Overall left ventricular systolic function is normal with, an EF between 55 - 60 %. 4. The right ventricle is normal in size. 5. The left atrial size is normal. 6. The right atrial size is normal. 7. There is mild aortic valve sclerosis. 8. Mild mitral annular calcification present. 9. Mild mitral regurgitation is present. 10. Mild tricuspid regurgitation present. 11. There is no evidence of pulmonary hypertension. 12. The right ventricular systolic pressure, as measured by Doppler, is 12.80mmHg. 13. The pulmonic valve was not well visualized. 14. The aortic root size is normal. 15. There is no pericardial effusion. RAIL CAR REPAIRER: Kaylen Quintanilla RDCS
== END ==
LOC: RADECHMAIN 14:37
PROVIDERS: ATTEND Family Medicine
DX: I08.1 Rheumatic disorders of both mitral and tricuspid valves (principal)
CPT/HCPCS: 93306

== ENCOUNTER → 2018-12-04 | Outpatient (CLI) | payer OTHER ==
[2018-12-04 17:08] LABS: HCT 51.2 % (39.0-53.0); HGB 17.2 gm/dL (13.0-17.5); MCH 27.5 pg (25.0-35.0); MCHC 33.6 g/dL (31.0-37.0); Mean Platelet Volume 6.5; Platelet Count 184 k/uL (150-450); RBC 6.25 m/uL (4.30-5.90); RDW 14.8 % (11.5-15.5); WBC 7.1 k/uL (3.8-10.6)
[2018-12-05 05:06] LABS: Anion Gap 8.5 mmol/L (4.00-12.00); Calcium 9.2 mg/dL (8.7-10.3); Carbon Dioxide 30.5 mmol/L (21.6-31.8); Potassium 4.4 mmol/L (3.5-5.5)
== END | disposition home or self-care (01) ==
LOC: LABWHC1 15:58
PROVIDERS: ATTEND Internal Medicine Interventional Cardiology
DX: I25.10 Atherosclerotic heart disease of native coronary artery without angina pectoris (principal)
CPT/HCPCS: 36415; 80048; 85027

== ENCOUNTER 2018-12-11 07:41 | Day surgery (SDC) | payer OTHER ==
[2018-12-06 15:22] VITALS: BMI 35.9
[~2018-12-11 07:41] MED LIST: ALPRAZolam 0.25 MG TAB PO PRN; ALPRAZolam 0.5 MG TAB PO PRN; ASPIRIN 325 MG TAB PO ONE; ATORVASTATIN 80 MG TAB PO ONE; NITROGLYCERIN SL TABS 0.4 MG TAB SUBLINGUAL PRN; SODIUM CHLORIDE 0.9% 1,000 ML in EMPTY BAG 1 BAG IV ONE
[2018-12-11] MEDS ORDERED: ASPIRIN 81 MG ONE (08:01)
[2018-12-11 08:25] LABS: Basophils # (A) 0.1 k/uL (0-0.2); Basophils % (A) 1 %; Eosinophils # (A) 0.3 k/uL (0-0.7); Eosinophils % (A) 4 %; HCT 48.6 % (39.0-53.0); HGB 16.1 gm/dL (13.0-17.5); Lymphocytes # (A) 1.5 k/uL (1.0-4.8); Lymphocytes % (A) 18 %; MCH 26.7 pg (25.0-35.0); MCHC 33.1 g/dL (31.0-37.0); MCV 80.7 fL (80.0-100.0); Mean Platelet Volume 6.7; Monocytes # (A) 0.7 k/uL (0-1.0); Monocytes % (A) 9 %; Neutrophils # (A) 5.5 k/uL (1.3-7.7); Neutrophils % (A) 66 %; Platelet Count 202 k/uL (150-450); RBC 6.02 m/uL (4.30-5.90); RDW 14.5 % (11.5-15.5); WBC 8.4 k/uL (3.8-10.6)
[2018-12-11 08:36] LABS: Calcium 9.2 mg/dL (8.4-10.2)
[2018-12-11 09:08] LABS: Potassium 4.4 mmol/L (3.5-5.1)
[2018-12-11] MEDS ORDERED: HEPARIN SODIUM 1,000 UN/ML (10ML VL) ONE (09:43)
[2018-12-11] MEDS ORDERED: VERAPAMIL 2.5 MG/ML 2 ML AMP ONE (09:43)
[2018-12-11] MEDS ORDERED: LIDOCAINE 1% INJ 10MG/ML (20 ML MDV) ONE (09:43)
[2018-12-11] MEDS ORDERED: MIDAZOLAM 2 MG/2 ML VIAL IV ONE (09:55)
[2018-12-11] MEDS ORDERED: fentaNYL (PF) 50 MCG/ML 2 ML AMP IVP ONE (09:59)
[2018-12-11] MEDS: LIDOCAINE 1% INJ 10MG/ML (20 ML MDV) SQ ONE ×2 (09:59→10:08)
[2018-12-11] MEDS ORDERED: BIVALIRUDIN 250 MG VIAL IV ONE (10:00)
[2018-12-11] MEDS ORDERED: SODIUM CHLORIDE 0.9% 50 ML BAG ONE (10:00)
[2018-12-11] MEDS ORDERED: fentaNYL (PF) 50 MCG/ML 2 ML AMP ONE (10:01)
[2018-12-11] MEDS ORDERED: HEPARIN SODIUM 1,000 UN/ML (10ML VL) IV ONE (10:22)
[2018-12-11] MEDS ORDERED: NITROGLYCERIN 1000MCG/10ML SYRINGE INTRACORON ONE ×4 (10:26→10:57)
[2018-12-11] MEDS ORDERED: ADENOSINE 90 MG in SODIUM CHLORIDE 0.9% 60 ML IVP ONE (10:39)
[2018-12-11] MEDS ORDERED: IOPAMIDOL-370 100ML BTL INJ ONE ×3 (10:40→11:18)
[2018-12-11] MEDS ORDERED: TIROFIBAN 12.5MG-250ML NS 250 ML IV ONE (11:17)
[2018-12-11] MEDS ORDERED: TIROFIBAN BOLUS 12.5MG/250 ML BAG IV ONE (11:18)
[2018-12-11] MEDS ORDERED: CLOPIDOGREL 75 MG TAB ONE (11:27)
[2018-12-11] MEDS ORDERED: CLOPIDOGREL 75 MG TAB PO ONE (11:29)
[2018-12-11] MEDS ORDERED: SYMBICORT 160-4.5 MCG INHALER INHALATION PRN (11:40)
[2018-12-11] MEDS ORDERED: NITROGLYCERIN SL TABS 0.4 MG TAB SUBLINGUAL PRN (11:40)
[2018-12-11] MEDS: SODIUM CHLORIDE 0.9% 1,000 ML IV SCH ×2 (12:18→23:13)
--- NOTE | 2018-12-11 12:25 | PTCA ---
PERCUTANEOUSTRANS CORORONARY ANGIOGRAPHY DATE OF SERVICE: 12/11/2018. PROCEDURE: 1. Fractional flow reserve assessment of 2 lesions in the LAD proximal and mid. 2. PTCA and stenting of proximal and mid LAD with 2 drug-eluting stents. PERFORMED BY: Dr. Haven Wade. Moderate conscious sedation time was 87 minutes. Patient was administered fentanyl and Versed and his oxygen saturation, hemodynamics and EKG were monitored closely. CLINICAL INFORMATION: Mr. 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 He had moderate lesions in the proximal LAD and mid LAD and he was advised to come in for FFR and PCI and was brought in for the procedure electively. Rationale, risks, benefits and options were discussed with the patient at length. PROCEDURE NOTE: Under local anesthesia and strict aseptic precautions, I attempted access from the right radial, but the pulse was somewhat weak and I could not gain access probably because of some spams and I therefore applied a pressure bandage and switched over to the right femoral approach. The 6-Polish introducer was placed in the right femoral artery under strict aseptic precautions and local anesthesia. I used a TIME PLUS Qda left 3.5 guide catheter to cannulate the left coronary artery. I used a Verrata wire and kept the wire distally just beyond the proximal lesion in the midportion, but before the mid lesion. I performed an iFR and FFR. The iFR was 0.92 and FFR was 0.86. I then advanced the wire and kept it in the distal LAD to assess the significance of the mid lesion. The iFR was less than 0.85 and FFR was less than 0.80. I have made the decision to stent the mid lesion and reassess the proximal lesion. Using the same wire, I pre-dilated the mid lesion with a 3.0 caliber 8 mm NC Trek balloon and deployed a 3.25 caliber 12 mm Xience stent at 13 atmospheres. Patient had mild chest discomfort, precordial ST changes but excellent angiographic result was achieved. I remeasured the FFR and at this point, the FFR was still low at 0.76 or so. I then went ahead and measured another FFR keeping the tip of the wire proximal to the mid lesion and FFR was still abnormal at less than 0.80 and I then went ahead and attempted stenting of the proximal LAD. However, I had some difficulty with the wire, so I switched over to a run-through wire and a 3.5 caliber 12 mm Xience stent was deployed in the proximal lesion at 13 to 14 atmospheres with excellent angiographic result. Patient had chest pain and precordial ST elevation. Excellent angiographic result without complication was achieved in the proximal as well as the mid LAD. Final images were obtained in both BRAZILIAN and POOLE projections. The sheath was taken out and Angio-Seal device used to secure hemostasis and he was sent to the room in a stable condition. The saturation in the fingers of the right hand was about 82% but there were also some cold fingers with some Raynaud type phenomena. The bandage was taken out and patient was sent to the room in a stable condition with the understanding we would watch the saturation of the fingers of the right hand. Excellent result was achieved. I discussed the findings with the patient's family including his . He was sent to the room in a stable condition. He received 225 mg of Plavix. I also gave him a total of 8000 of heparin and his ACT was 305. I then placed him on a tirofiban drip which I will use for about 12 to 14 hours. Results were discussed with the patient and family and I expect him to be discharged tomorrow if he remains stable. MMKAILASH / KEESHAN: [id number] /
[2018-12-11] MEDS: LISINOPRIL 20 MG TAB PO SCH ×2 (16:34→20:32)
--- NOTE | 2018-12-11 19:20 | ECHOF ---
Referral Reason:lv function MEASUREMENTS -------- HEIGHT: 177.8 cm WEIGHT: 113.4 kg BP: 132/75 RVIDd: 2.4 cm (< 3.3) IVSd: 1.1 cm (0.6 - 1.1) LVIDd: 4.4 cm (3.9 - 5.3) LVPWd: 1.1 cm (0.6 - 1.1) IVSs: 1.4 cm LVIDs: 2.8 cm LVPWs: 1.4 cm FINDINGS -------- Sinus rhythm. This was a technically adequate study. Limited Study for left ventricular assessment. The left ventricular size is normal. There is mild concentric left ventricular hypertrophy. Overa ll left ventricular systolic function is normal with, an EF between 55 - 60 %. CONCLUSIONS -------- 1. Sinus rhythm. 2. This was a technically adequate study. 3. Limited Study for left ventricular assessment. 4. The left ventricular size is normal. 5. There is mild concentric left ventricular hypertrophy. 6. Overall left ventricular systolic function is normal with, an EF between 55 - 60 %. WORK COUNSELOR: Eligio Kennedy [facility]
[2018-12-11] MEDS: METOPROLOL TARTRATE 50 MG TAB PO SCH (20:32)
[2018-12-11] MEDS: CILOSTAZOL 100 MG TAB PO SCH (20:32)
[2018-12-11] MEDS ORDERED: ATORVASTATIN 80 MG TAB PO SCH (23:00)
[2018-12-12 05:30] VITALS: TEMP 98
[2018-12-12 06:45] LABS: Basophils % (A) 1 %; Eosinophils # (A) 0.2 k/uL (0-0.7); Eosinophils % (A) 4 %; HCT 42.6 % (39.0-53.0); HGB 13.7 gm/dL (13.0-17.5); Lymphocytes # (A) 0.8 k/uL (1.0-4.8); Lymphocytes % (A) 14 %; MCH 26.5 pg (25.0-35.0); MCHC 32.1 g/dL (31.0-37.0); MCV 82.4 fL (80.0-100.0); Mean Platelet Volume 6.5; Monocytes # (A) 0.4 k/uL (0-1.0); Monocytes % (A) 8 %; Neutrophils # (A) 4.2 k/uL (1.3-7.7); Neutrophils % (A) 71 %; Platelet Count 156 k/uL (150-450); RBC 5.17 m/uL (4.30-5.90); RDW 14.7 % (11.5-15.5); WBC 5.8 k/uL (3.8-10.6)
[2018-12-12 07:15] LABS: Anion Gap 7 mmol/L; Blood Urea Nitrogen 15 mg/dL (9-20); Calcium 8.4 mg/dL (8.4-10.2); Carbon Dioxide 23 mmol/L (22-30); Chloride 111 mmol/L (98-107); Glucose 113 mg/dL (74-99); Potassium 3.9 mmol/L (3.5-5.1); Sodium 141 mmol/L (137-145)
[2018-12-12] MEDS: CILOSTAZOL 100 MG TAB PO SCH (07:37)
[2018-12-12] MEDS: LISINOPRIL 20 MG TAB PO SCH (08:48)
[2018-12-12] MEDS: METOPROLOL TARTRATE 50 MG TAB PO SCH (08:48)
[2018-12-12] MEDS ORDERED: ASPIRIN 81 MG PO SCH (09:00)
[2018-12-12] MEDS ORDERED: CLOPIDOGREL 75 MG TAB PO SCH (09:00)
[2018-12-12] MEDS ORDERED: RIVAROXABAN 15 MG TAB PO SCH (09:00)
[2018-12-12] MEDS ORDERED: FUROSEMIDE 40 MG TAB PO SCH (09:00)
[2018-12-12] MEDS ORDERED: amLODIPine 10 MG TAB PO SCH (09:00)
[2018-12-12] MEDS ORDERED: POTASSIUM CHLORIDE ER 10 MEQ TAB.ER.PRT PO SCH (09:00)
[2018-12-12 09:31] VITALS: BP 152/72; PULSE 72; RESP 17
--- NOTE | 2018-12-12 11:38 | DS ---
DISCHARGE SUMMARY DATE OF ADMISSION: 12/11/2018 DATE OF DISCHARGE: 12/12/2018 PROCEDURES PERFORMED: 1. Fractional flow reserve assessment of proximal and mid LAD. 2. PTCA and stenting of proximal and mid LAD with drug-eluting stents. 3. Coronary angiography of the left coronary artery to assess the patency of circumflex marginal that was stented on November 17. 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 I performed stenting of a very high obtuse marginal on November 17 and brought him back for moderate lesions both in the proximal and mid LAD for FFR. FFR revealed that the mid lesion was significant. I performed stenting of this with a 3.25 caliber 12 mm drug-eluting stent. Subsequently, FFR remained high in relation to the proximal lesion. This was addressed with a 3.5 caliber 12 mm drug-eluting stent. Excellent angiographic result was achieved without complication. I initially attempted from the right radial approach, but I could not gain access. Saturation in the fingers of the right hand was 98%. The pulse in the right radial artery is good. The patient also probably has some underlying Raynaud type phenomena. The right groin area is clean and dry. The pulse is good, but there is a moderate area of ecchymosis with a very small hematoma. No bruit is audible. Pulses good. Distal pulses are good. Vital signs are stable. S1, S2 heard normally. Lungs are clear. Abdomen is soft, nontender. Lower extremities reveal diminished pulses. No edema. Central nervous system is normal. EKG and labs are unremarkable. Patient will be discharged today and he will see Dr. Barry on 12/18/2017 at 3:15 p.m. Discharge instructions regarding activity, diet and medications were given. He will not take aspirin or Pletal, but he will take 15 mg of Xarelto and also Plavix 75 mg daily in addition to his other medications. He will be discharged today and a copy of this note will go to Dr. Jose Eduardo Esposito his primary care physician. MMODL / IJN: [id number] /
== END 2018-12-12 08:55 | disposition home or self-care (01) ==
LOC: CATHCVL 07:41 → 3SCARD 11:20 → CATHCVL 12-12 08:55
PROVIDERS: ATTEND Internal Medicine Interventional Cardiology
DX: I25.110 Atherosclerotic heart disease of native coronary artery with unstable angina pectoris (principal); I10 Essential (primary) hypertension; Z87.891 Personal history of nicotine dependence; Z82.49 Family history of ischemic heart disease and other diseases of the circulatory system; Z95.5 Presence of coronary angioplasty implant and graft; E78.00 Pure hypercholesterolemia, unspecified; I48.0 Paroxysmal atrial fibrillation; Z79.01 Long term (current) use of anticoagulants; Z79.02 Long term (current) use of antithrombotics/antiplatelets; Z79.82 Long term (current) use of aspirin; Z79.899 Other long term (current) drug therapy
CPT/HCPCS: 93308; 93571; 80048 ×2; 85025 ×2; C9600; C1760; C1887; C1769 ×4; C1725; C1894 ×2; C1874; J2250; J2001; J3010; J1644; J0583; J0153; J3246; Q9967

== ENCOUNTER 2018-12-20 17:02 | Emergency (ER) | payer OTHER ==
[2018-12-20 18:04] VITALS: RESP 18; TEMP 98.2
[2018-12-20] MEDS ORDERED: LIDOCAINE 1% INJ 10MG/ML (20 ML MDV) SQ STA (18:59)
--- NOTE | 2018-12-20 19:49 | ED ---
General Adult HPI - General Chief complaint: Wound/Laceration Stated complaint: LEFT MIDDLE FINGER INJURY Time Seen by Provider: 12/20/18 18:35 Source: patient, RN notes reviewed, old records reviewed Mode of arrival: ambulatory Limitations: no limitations - History of Present Illness Initial comments: 58-year-old male patient past medical history of NM, stents, DVT on blood thinners presents to ED after sustaining a laceration from a mechanical fall at approximately 0400 this morning. Patient reports that he was walking and slipped on ice, braced his fall with his hands and suffered a approximately 2 cm laceration on the PIP joint of his third digit of his right hand. Patient cut his hand on concrete. Patient had bleeding throughout the day, use multiple Band-Aids. Patient denies any other injury from fall. Patient denies any trauma to head or neck. Patient denies a loss of consciousness. Patient is a ambulatory without difficulty, denies any pain upper extremities or back. Patient states that his last tetanus shot was 4 years ago, does not need update. Pt denies all other complaints. Systemic: Pt denies fatigue, myalgia, fever/chills, rash. Pt denies weakness, night sweats, weight loss. Neuro: Pt denies headache, visual disturbances, syncope or pre-syncope. HEENT: Pt denies ocular discharge or irritation, otalgia, rhinorrhea, pharyngitis or notable lymphadenopathy. Cardiopulmonary: Pt denies chest pain, SOB, heart palpitations, dyspnea on exertion. Abdominal/GI: Pt denies abdominal pain, n/v/d. : Pt denies dysuria, burning w/ urination, frequency/urgency. Denies new onset urinary or bowel incontinence. MSK: Pt denies myalgia, loss of strength or function in extremities. Neuro: Pt denies new onset weakness, paresthesias. - Related Data Home Medications Medication Instructions Recorded Confirmed Lisinopril [Zestril] 20 mg PO TID 05/23/14 12/11/18 amLODIPine [Norvasc] 10 mg PO DAILY 05/23/14 12/11/18 Potassium Chloride 8 meq PO DAILY 11/17/18 12/11/18 Budesonide/Formoterol Fumarate 2 puff INHALATION RT-BID PRN 11/18/18 12/11/18 [Symbicort 160-4.5 Mcg Inhaler] Furosemide [Lasix] 40 mg PO DAILY 11/18/18 12/11/18 Metoprolol Tartrate [Lopressor] 50 mg PO BID 11/18/18 12/11/18 Previous Rx's Medication Instructions Recorded Atorvastatin [Lipitor] 80 mg PO HS #30 tab 11/19/18 Clopidogrel [Plavix] 75 mg PO DAILY #30 tab 11/19/18 Nitroglycerin Sl Tabs [Nitrostat] 0.4 mg SUBLINGUAL Q5M PRN #20 tab 11/19/18 Rivaroxaban [Xarelto] 15 mg PO DAILY #30 tab 11/19/18 Cephalexin [Keflex] 500 mg PO Q12HR 3 Days #6 cap 12/20/18 Allergies Allergy/AdvReac Type Severity Reaction Status Date / Time No Known Allergies Allergy Verified 12/20/18 18:01 Review of Systems ROS Statement: Those systems with pertinent positive or pertinent negative responses have been documented in the HPI. ROS Other: All systems not noted in ROS Statement are negative. Past Medical History Past Medical History: Deep Vein Thrombosis (DVT), GERD/Reflux, Hyperlipidemia, Hypertension, Osteoarthritis (OA), Pneumonia Additional Past Medical History / Comment(s): head injury as 4 yr old. History of Any Multi-Drug Resistant Organisms: None Reported Past Surgical History: Appendectomy, Heart Catheterization With Stent Additional Past Surgical History / Comment(s): back cyst removed, colonoscopy , PTCA WITH STENT Past Anesthesia/Blood Transfusion Reactions: No Reported Reaction Additional Past Anesthesia/Blood Transfusion Reaction / Comment(s): Pt has never recieved blood. Date of Last Stent Placement:: Past Psychological History: No Psychological Hx Reported Smoking Status: Former smoker Past Alcohol Use History: Occasional Past Drug Use History: None Reported - Past Family History Sister(s) Family Medical History: Cancer Brother(s) Family Medical History: Cancer Father Family Medical History: Coronary Artery Disease (CAD) Additional Family Medical History / Comment(s): Father had a heart transplant. He in his mid 60's. Mother Family Medical History: Cancer, Myocardial Infarction ([place]) Additional Family Medical History / Comment(s): LUNG CANCER General Exam - General Exam Comments Initial Comments: Constitutional: NAD, AOX3, Pt has pleasant affect. HEENT: NC/AT, trachea midline, neck supple, no lymphadenopathy. Posterior pharynx non erythematous, without exudates. External ears appear normal, without discharge. Mucous membranes moist. Eyes PERRLA, EOM intact. There is no scleral icterus. No pallor noted. Cardiopulmonary: RRR, no murmurs, rubs or gallops, no JVD noted. Lungs CTAB in anterior and posterior newman. No peripheral edema. Abdominal exam: Abdomen soft and non-distended. Abdomen non-tender to palpation in all 4 quadrants. Bowel sounds active in LLQ. No hepatosplenomegaly. No ecchymosis Neuro: CN II-XII grossly intact. No nuchal rigidity. MSK: 2 CM laceration on PIP joint of third digit of R hand. Pt has full ROM, flexion/extension intact at MCP, PIP, DIP joint. Sensation intact. Wound explored extensively, no foreign body, tendon or osseous involvement. Wound irrigated extensively with 1L NS. Wound closed with 6 simple interrupted sutures , neurovascularly intact post suture placement. No posterior calf tenderness bilaterally, homans sign negative bilaterally. Posterior tibialis and radial pulse +2 bilaterally. Sensation intact in upper and lower extremities. Full active ROM in upper and lower extremities, 5/5 stregnth. Limitations: no limitations Course Vital Signs 12/20/18 18:01 Temperature 98.2 F Pulse Rate 56 L Respiratory 18 Rate Blood Pressure 146/86 O2 Sat by Pulse 98 Oximetry Procedures - Laceration Laceration #1 Consent Obtained: verbal consent Indication: laceration Site: hand Size (cm): 2 Description: linear Depth: simple, single layer Anesthetic Used: lidocaine 1% Anesthesia Technique: local infiltration Amount (mls): 4 Pre-repair: wound explored, irrigated extensively, deep structures intact Type of Sutures: nylon Size of Sutures: 5-0 Number of Sutures: 6 Technique: simple, interrupted Patient Tolerated Procedure: well, no complications Medical Decision Making - Medical Decision Making 58-year-old male patient past medical history of NM, stents, DVT on blood thinners presents to ED after sustaining a laceration from a mechanical fall at approximately 0400 this morning. Patient reports that he was walking and slipped on ice, braced his fall with his hands and suffered a approximately 2 cm laceration on the PIP joint of his third digit of his right hand. Patient cut his hand on concrete. Patient had bleeding throughout the day, use multiple Band-Aids. Patient denies any other injury from fall. Patient denies any trauma to head or neck. Patient denies a loss of consciousness. Pt denies all other complaints. Pt VSS. Physical exam displayed: 2 CM laceration on PIP joint of third digit of R hand. Pt has full ROM, flexion/extension intact at MCP , PIP, DIP joint. Sensation intact. Wound explored extensively, no foreign body , tendon or osseous involvement. Wound irrigated extensively with 1L NS. Wound closed with 6 simple interrupted sutures, neurovascularly intact post suture placement. Patient tired procedures well. Explained signs and symptoms of infection extensively, patient verbalized understanding. Patient to follow up with PCP in 1-2 days. Patient to return to ED if new signs or symptoms develop or if condition worsens in any way. Patient to return in 7-10 days for suture removal. Case discussed with Dr. Ugalde. Pt rx 3 days of prophylactic keflex. Disposition Clinical Impression: Laceration Disposition: HOME SELF-CARE Condition: Stable Instructions (If sedation given, give patient instructions): Laceration (ED), Care For Your Stitches (ED) Additional Instructions: Patient to adhere to previously discussed treatment plan and will take medication(s) as directed. Patient to follow up with PCP in 1-2 days. Patient to return to ED if symptoms do not improve. Prescriptions: Cephalexin [Keflex] 500 mg PO Q12HR 3 Days #6 cap Is patient prescribed a controlled substance at d/c from ED?: No Referrals: Jose Eduardo Esposito DO [Primary Care Provider] - 1-2 days Time of Disposition: 19:49
[2018-12-20 19:56] VITALS: BP 121/65; PULSE 60
== END 2018-12-20 19:56 | disposition home or self-care (01) ==
LOC: EC 17:02
DX: S61.213A Laceration without foreign body of left middle finger without damage to nail, initial encounter (principal); I10 Essential (primary) hypertension; I25.2 Old myocardial infarction; Z87.891 Personal history of nicotine dependence; Z79.01 Long term (current) use of anticoagulants; Z79.899 Other long term (current) drug therapy; Z86.718 Personal history of other venous thrombosis and embolism; Z95.5 Presence of coronary angioplasty implant and graft; W00.0XXA Fall on same level due to ice and snow, initial encounter; Y93.01 Activity, walking, marching and hiking; Y92.009 Unspecified place in unspecified non-institutional (private) residence as the place of occurrence of the external cause
CPT/HCPCS: 99283; 12001; J2001

== ENCOUNTER 2019-09-28 17:41 | Emergency (ER) | payer OTHER ==
[2019-09-28 18:02] VITALS: RESP 18
--- NOTE | 2019-09-28 18:30 | ED ---
General Adult HPI - General Chief complaint: Upper Respiratory Infection Stated complaint: SELMA Time Seen by Provider: 09/28/19 18:05 Source: patient, RN notes reviewed Mode of arrival: ambulatory Limitations: no limitations - History of Present Illness Initial comments: Patient is a pleasant 59-year-old male presenting to the emergency Department with cough. Cough is been occurring for the past couple of weeks. Patient states he does have an inhaler at home that his doctor gave him a month or more ago. Patient states he does not really use it. Patient denies dyspnea. Patient states cough is keeping him up at nighttime. Patient states he is a chronic smoker. No chest pain. No fevers. Patient states he is starting to get a little bit of sputum at times. - Related Data Home Medications Medication Instructions Recorded Confirmed Lisinopril [Zestril] 20 mg PO TID 05/23/14 12/11/18 amLODIPine [Norvasc] 10 mg PO DAILY 05/23/14 12/11/18 Potassium Chloride 8 meq PO DAILY 11/17/18 12/11/18 Budesonide/Formoterol Fumarate 2 puff INHALATION RT-BID PRN 11/18/18 12/11/18 [Symbicort 160-4.5 Mcg Inhaler] Furosemide [Lasix] 40 mg PO DAILY 11/18/18 12/11/18 Metoprolol Tartrate [Lopressor] 50 mg PO BID 11/18/18 12/11/18 Previous Rx's Medication Instructions Recorded Atorvastatin [Lipitor] 80 mg PO HS #30 tab 11/19/18 Clopidogrel [Plavix] 75 mg PO DAILY #30 tab 11/19/18 Nitroglycerin Sl Tabs [Nitrostat] 0.4 mg SUBLINGUAL Q5M PRN #20 tab 11/19/18 Rivaroxaban [Xarelto] 15 mg PO DAILY #30 tab 11/19/18 Cephalexin [Keflex] 500 mg PO Q12HR 3 Days #6 cap 12/20/18 Benzonatate [Tessalon Perles] 200 mg PO TID #20 capsule 09/28/19 predniSONE 20 mg PO BID #10 tab 09/28/19 Allergies Allergy/AdvReac Type Severity Reaction Status Date / Time No Known Allergies Allergy Verified 09/28/19 18:02 Review of Systems ROS Statement: Those systems with pertinent positive or pertinent negative responses have been documented in the HPI. ROS Other: All systems not noted in ROS Statement are negative. Constitutional: Denies: fever Eyes: Denies: eye pain ENT: Denies: ear pain Respiratory: Reports: cough Cardiovascular: Denies: chest pain Endocrine: Denies: fatigue Gastrointestinal: Denies: abdominal pain Genitourinary: Denies: dysuria Musculoskeletal: Denies: back pain Skin: Denies: rash Neurological: Denies: weakness Past Medical History Past Medical History: Deep Vein Thrombosis (DVT), GERD/Reflux, Hyperlipidemia, Hypertension, Osteoarthritis (OA), Pneumonia Additional Past Medical History / Comment(s): head injury as 4 yr old. History of Any Multi-Drug Resistant Organisms: None Reported Past Surgical History: Appendectomy, Heart Catheterization With Stent Additional Past Surgical History / Comment(s): back cyst removed, colonoscopy , PTCA WITH STENT Past Anesthesia/Blood Transfusion Reactions: No Reported Reaction Additional Past Anesthesia/Blood Transfusion Reaction / Comment(s): Pt has never recieved blood. Date of Last Stent Placement:: Past Psychological History: No Psychological Hx Reported Smoking Status: Former smoker Past Alcohol Use History: Daily Past Drug Use History: None Reported - Past Family History Sister(s) Family Medical History: Cancer Brother(s) Family Medical History: Cancer Father Family Medical History: Coronary Artery Disease (CAD) Additional Family Medical History / Comment(s): Father had a heart transplant. He in his mid 60's. Mother Family Medical History: Cancer, Myocardial Infarction ([place]) Additional Family Medical History / Comment(s): LUNG CANCER General Exam Limitations: no limitations General appearance: alert, in no apparent distress Eye exam: Present: normal appearance ENT exam: Present: normal oropharynx Neck exam: Present: normal inspection Respiratory exam: Present: wheezes Cardiovascular Exam: Present: regular rate, normal rhythm GI/Abdominal exam: Present: soft. Absent: tenderness Extremities exam: Present: normal inspection Neurological exam: Present: alert Psychiatric exam: Present: normal affect, normal mood Skin exam: Present: normal color Course Vital Signs 09/28/19 09/28/19 18:00 19:13 Temperature 98.0 F Pulse Rate 60 80 Respiratory 18 Rate Blood Pressure 148/85 O2 Sat by Pulse 97 Oximetry Medical Decision Making - Medical Decision Making Patient reevaluated and resting comfortably in bed. Patient updated on results and need for follow-up. Patient requests cough medicine. - Radiology Data Radiology results: image reviewed (Chest x-ray shows no acute process) Disposition Clinical Impression: Bronchitis Disposition: HOME SELF-CARE Condition: Stable Instructions (If sedation given, give patient instructions): Acute Bronchitis (ED) Additional Instructions: Please follow-up with primary care physician in the next couple of days for recheck. Return for difficulty in breathing, fevers, worsening symptoms or other concerns. Please use your inhaler. Your prescriptions have been sent to [facility] pharmacy. Prescriptions: predniSONE 20 mg PO BID #10 tab Benzonatate [Tessalon Perles] 200 mg PO TID #20 capsule Is patient prescribed a controlled substance at d/c from ED?: No Referrals: Jose Eduardo Esposito DO [Primary Care Provider] - 1-2 days Time of Disposition: 19:16
[2019-09-28] MEDS ORDERED: IPRATROPIUM-ALBUTEROL 3 ML NEB INHALATION STA (18:39)
--- NOTE | 2019-09-28 19:07 | XR ---
EXAMINATION TYPE: XR chest 2V DATE OF EXAM: 09/28/2019 COMPARISON: 11/17/2018 HISTORY: Cough and congestion TECHNIQUE: Frontal and lateral views of the chest are obtained. FINDINGS: Heart is normal. Lungs are clear of consolidation. There is no heart failure. Costophrenic angles are clear. There are a few calcified granulomata around the pulmonary masoud. Bony thorax is in tact. There is some coarse linear density in the lingula left upper lobe. IMPRESSION: Chronic lingula density consistent with scarring and subsegmental atelectasis unchanged. No heart failure.
[2019-09-28 19:57] VITALS: BP 136/78; PULSE 64; TEMP 98
== END 2019-09-28 19:26 | disposition home or self-care (01) ==
LOC: EC 17:41
DX: J40 Bronchitis, not specified as acute or chronic (principal); I10 Essential (primary) hypertension; F17.200 Nicotine dependence, unspecified, uncomplicated; Z79.899 Other long term (current) drug therapy; Z80.1 Family history of malignant neoplasm of trachea, bronchus and lung
CPT/HCPCS: 71046; 94640; 99285

== ENCOUNTER 2019-11-28 00:34 | Emergency (ER) | payer OTHER ==
[2019-11-28] MEDS ORDERED: ASPIRIN 81 MG PO STA (00:50)
--- NOTE | 2019-11-28 01:03 | ED ---
Chest Pain HPI - General Chief Complaint: Chest Pain Stated Complaint: chest pain Time Seen by Provider: 11/28/19 00:50 Source: patient Limitations: no limitations - History of Present Illness Initial Comments: Patient's 59-year-old man who presents to be evaluated for racing and irregular heartbeat. Symptoms came on tonight after he had had a few drinks and then he was sitting watching television. Patient denies history of same. He denies chest pain when I interview him but states that there is a tight feeling. He states that he was referring to this when he was in the triage area. No anginal equivalents. MD Complaint: other (Palpitations) Onset/Timin -: hour(s) Onset: during rest Pain Location: substernal Severity scale (1-10): 0 Consistency: constant Improves With: nothing Worsens With: nothing Other Symptoms: palpitations Treatments Prior to Arrival: none - Related Data On Oral Contraceptives: No Home Medications Medication Instructions Recorded Confirmed Lisinopril [Zestril] 20 mg PO TID 05/23/14 12/11/18 amLODIPine [Norvasc] 10 mg PO DAILY 05/23/14 12/11/18 Potassium Chloride 8 meq PO DAILY 11/17/18 12/11/18 Budesonide/Formoterol Fumarate 2 puff INHALATION RT-BID PRN 11/18/18 12/11/18 [Symbicort 160-4.5 Mcg Inhaler] Furosemide [Lasix] 40 mg PO DAILY 11/18/18 12/11/18 Metoprolol Tartrate [Lopressor] 50 mg PO BID 11/18/18 12/11/18 Previous Rx's Medication Instructions Recorded Atorvastatin [Lipitor] 80 mg PO HS #30 tab 11/19/18 Clopidogrel [Plavix] 75 mg PO DAILY #30 tab 11/19/18 Nitroglycerin Sl Tabs [Nitrostat] 0.4 mg SUBLINGUAL Q5M PRN #20 tab 11/19/18 Rivaroxaban [Xarelto] 15 mg PO DAILY #30 tab 11/19/18 Cephalexin [Keflex] 500 mg PO Q12HR 3 Days #6 cap 12/20/18 Benzonatate [Tessalon Perles] 200 mg PO TID #20 capsule 09/28/19 predniSONE 20 mg PO BID #10 tab 09/28/19 Allergies Allergy/AdvReac Type Severity Reaction Status Date / Time No Known Allergies Allergy Verified 09/28/19 18:02 Review of Systems ROS Statement: Those systems with pertinent positive or pertinent negative responses have been documented in the HPI. ROS Other: All systems not noted in ROS Statement are negative. Constitutional: Denies: fever, chills Respiratory: Denies: cough, dyspnea Cardiovascular: Reports: palpitations. Denies: chest pain, dyspnea on exertion, edema, syncope Gastrointestinal: Denies: abdominal pain, nausea, vomiting, diarrhea, melena, hematochezia Genitourinary: Denies: dysuria, hematuria Musculoskeletal: Denies: back pain Skin: Denies: rash Neurological: Denies: headache, weakness, numbness EKG Findings - EKG Comments: EKG Findings:: Underlying rhythm appears to be atrial fibrillation with a rate approximately 113 bpm - EKG Results: EKG: interpreted by ERMD, normal axis, normal QRS - Blocks, [place], Hypertrophy, ST Abn: Repolarization changes or abnormalities: nonspecific abnormality, ST segment, and/or T wave Past Medical History Past Medical History: Deep Vein Thrombosis (DVT), GERD/Reflux, Hyperlipidemia, Hypertension, Osteoarthritis (OA), Pneumonia Additional Past Medical History / Comment(s): head injury as 4 yr old. History of Any Multi-Drug Resistant Organisms: None Reported Past Surgical History: Appendectomy, Heart Catheterization With Stent Additional Past Surgical History / Comment(s): back cyst removed, colonoscopy , PTCA WITH STENT Past Anesthesia/Blood Transfusion Reactions: No Reported Reaction Additional Past Anesthesia/Blood Transfusion Reaction / Comment(s): Pt has never recieved blood. Date of Last Stent Placement:: Past Psychological History: No Psychological Hx Reported Smoking Status: Former smoker Past Alcohol Use History: Daily Past Drug Use History: None Reported - Past Family History Sister(s) Family Medical History: Cancer Brother(s) Family Medical History: Cancer Father Family Medical History: Coronary Artery Disease (CAD) Additional Family Medical History / Comment(s): Father had a heart transplant. He in his mid 60's. Mother Family Medical History: Cancer, Myocardial Infarction ([place]) Additional Family Medical History / Comment(s): LUNG CANCER General Exam Limitations: no limitations General appearance: alert, in no apparent distress Head exam: Present: atraumatic, normocephalic Eye exam: Present: normal appearance. Absent: scleral icterus, conjunctival injection ENT exam: Present: normal oropharynx Respiratory exam: Present: normal lung sounds bilaterally. Absent: respiratory distress, wheezes, rales, rhonchi, stridor Cardiovascular Exam: Present: tachycardia (Rate is approximately 120 my exam), irregular rhythm, normal heart sounds. Absent: systolic murmur, diastolic murmur, rubs, gallop GI/Abdominal exam: Present: soft. Absent: distended, tenderness, guarding, rebound, rigid, mass Extremities exam: Present: normal inspection, normal capillary refill. Absent: pedal edema, calf tenderness Back exam: Present: normal inspection. Absent: CVA tenderness (R), CVA tenderness (L) Neurological exam: Present: alert Skin exam: Present: warm, dry, intact, normal color. Absent: rash Course Vital Signs 11/28/19 11/28/19 11/28/19 00:38 00:50 01:02 Temperature 98.3 F Pulse Rate 122 H 112 H Respiratory 20 18 Rate Blood Pressure 185/87 157/97 O2 Sat by Pulse 97 94 L 97 Oximetry 11/28/19 11/28/19 11/28/19 02:27 02:51 02:55 Temperature Pulse Rate 105 H 87 66 Respiratory 17 18 17 Rate Blood Pressure 113/79 O2 Sat by Pulse 97 96 Oximetry 11/28/19 04:00 Temperature 98.0 F Pulse Rate 79 Respiratory 18 Rate Blood Pressure 110/70 O2 Sat by Pulse 96 Oximetry Chest Pain MDM - MDM Review of the patient's charts reveals that he has previous had paroxysmal atrial fibrillation. He does currently take Xarelto as anticoagulant and he takes metoprolol apparently for rate control. The patient workup here negative other than the atrial fibrillation. He has achieved rate control after Cardizem. I had discussed admission to have cardiology consultation, but the patient states that with the holiday he would like to go home and follow with cardiology if possible. As she is not having the chest discomfort any longer nor any other symptoms, and given his current medications this seems acceptable. We discussed return parameters as well as the appropriate follow-up. Disposition Clinical Impression: Atrial fibrillation with rapid ventricular response Disposition: HOME SELF-CARE Condition: Fair Instructions (If sedation given, give patient instructions): A-fib (Atrial Fibrillation) (DC) Is patient prescribed a controlled substance at d/c from ED?: No Referrals: Jose Eduardo Esposito DO [Primary Care Provider] - 1-2 days Angelo Saleem MD [STAFF PHYSICIAN] - 1-2 days
[2019-11-28 01:16] LABS: Basophils % (A) 0 %; Eosinophils # (A) 0.2 k/uL (0-0.7); Eosinophils % (A) 3 %; HCT 47.2 % (39.0-53.0); HGB 16.1 gm/dL (13.0-17.5); Lymphocytes # (A) 0.8 k/uL (1.0-4.8); Lymphocytes % (A) 12 %; MCH 27.6 pg (25.0-35.0); MCHC 34.1 g/dL (31.0-37.0); Mean Platelet Volume 7.5; Monocytes # (A) 0.5 k/uL (0-1.0); Monocytes % (A) 7 %; Neutrophils # (A) 4.9 k/uL (1.3-7.7); Neutrophils % (A) 75 %; Platelet Count 174 k/uL (150-450); RBC 5.83 m/uL (4.30-5.90); RDW 14.4 % (11.5-15.5); WBC 6.6 k/uL (3.8-10.6)
--- NOTE | 2019-11-28 01:29 | XR ---
EXAMINATION TYPE: XR chest 2V DATE OF EXAM: 11/28/2019 COMPARISON: 09/28/2019 HISTORY: Chest pain TECHNIQUE: 2 views FINDINGS: Heart is normal. There is mild linear density left lower lobe. The other lung newman are cl ear. There is no heart failure. There are chest leads. Bony thorax is intact. IMPRESSION: There is some mild scarring and atelectasis in the left lung mostly in the lingula left u pper lobe unchanged compared to old exam. Normal heart.
[2019-11-28 01:33] LABS: Albumin 4.1 g/dL (3.5-5.0); Calcium 9.3 mg/dL (8.4-10.2); INR 0.9 (<1.2); Magnesium 1.7 mg/dL (1.6-2.3); Partial Thromboplastin Time 27.7 sec (22.0-30.0); Potassium 3.7 mmol/L (3.5-5.1); Prothrombin Time 9.8 sec (9.0-12.0); Total Bilirubin 0.6 mg/dL (0.2-1.3); Total Protein 7.6 g/dL (6.3-8.2)
[2019-11-28] MEDS ORDERED: ENOXAPARIN 120 MG/0.8 ML SYRINGE SQ STA (01:58)
[2019-11-28] MEDS ORDERED: DILTIAZEM DRIP BOLUS FROM BAG 1 MG SOLN IV ONE (01:58)
[2019-11-28] MEDS ORDERED: DILTIAZEM 125 MG in SODIUM CHLORIDE 0.9% 100 ML IV SCH (02:00)
[2019-11-28 04:36] VITALS: BP 110/70; PULSE 79; RESP 18; TEMP 98
== END 2019-11-28 04:10 | disposition home or self-care (01) ==
LOC: EC 00:34
DX: I48.0 Paroxysmal atrial fibrillation (principal); I10 Essential (primary) hypertension; Z79.899 Other long term (current) drug therapy; Z95.5 Presence of coronary angioplasty implant and graft; Z86.718 Personal history of other venous thrombosis and embolism
CPT/HCPCS: 36415; 71046; 80053; 83735; 84484; 85025; 85610; 85730; 93005; 96365; 99285

== ENCOUNTER 2020-12-07 17:40 | Emergency (ER) | payer BC, OTHER ==
[2020-12-07 17:47] VITALS: BP 200/102; PULSE 64; RESP 18; TEMP 98.2
--- NOTE | 2020-12-07 18:28 | ED ---
General Adult HPI - General Chief complaint: Recheck/Abnormal Lab/Rx Stated complaint: Leg injury Time Seen by Provider: 12/07/20 17:55 Source: patient Mode of arrival: ambulatory Limitations: no limitations - History of Present Illness Initial comments: Patient presents to the ED with his for evaluation. Patient states that he bumped his left momin against a piece of steel 3 days ago, and he has had increasing pain and swelling to that region since then. Patient has sustained an abrasion to that region as well. Patient states that his left leg seems weak when he first stands up and puts any weight on it, but then it is fine and no longer weak after he walks on it for a while. Patient denies any other injury or site of pain, fever or chills, headache, focal sensory deficit, back pain, chest pain, dyspnea, dizziness, abdominal pain, nausea or vomiting, or any other symptoms or complaints. Patient states that his tetanus shot is up-to-date (within the past 5 years). - Related Data Home Medications Medication Instructions Recorded Confirmed amLODIPine [Norvasc] 10 mg PO DAILY 05/23/14 12/11/18 lisinopriL [Zestril] 20 mg PO TID 05/23/14 12/11/18 Potassium Chloride 8 meq PO DAILY 11/17/18 12/11/18 Budesonide/Formoterol Fumarate 2 puff INHALATION RT-BID PRN 11/18/18 12/11/18 [Symbicort 160-4.5 Mcg Inhaler] Furosemide [Lasix] 40 mg PO DAILY 11/18/18 12/11/18 Metoprolol Tartrate [Lopressor] 50 mg PO BID 11/18/18 12/11/18 Previous Rx's Medication Instructions Recorded Atorvastatin [Lipitor] 80 mg PO HS #30 tab 11/19/18 Clopidogrel [Plavix] 75 mg PO DAILY #30 tab 11/19/18 Nitroglycerin Sl Tabs [Nitrostat] 0.4 mg SUBLINGUAL Q5M PRN #20 tab 11/19/18 Rivaroxaban [Xarelto] 15 mg PO DAILY #30 tab 11/19/18 Cephalexin [Keflex] 500 mg PO Q12HR 3 Days #6 cap 12/20/18 Benzonatate [Tessalon Perles] 200 mg PO TID #20 capsule 09/28/19 predniSONE [Deltasone] 20 mg PO BID #10 tab 09/28/19 Doxycycline [Vibramycin] 100 mg PO BID 7 Days #14 capsule 12/07/20 Allergies Allergy/AdvReac Type Severity Reaction Status Date / Time No Known Allergies Allergy Verified 12/07/20 17:47 Review of Systems ROS Statement: Those systems with pertinent positive or pertinent negative responses have been documented in the HPI. ROS Other: All systems not noted in ROS Statement are negative. Past Medical History Past Medical History: Deep Vein Thrombosis (DVT), GERD/Reflux, Hyperlipidemia, Hypertension, Osteoarthritis (OA), Pneumonia Additional Past Medical History / Comment(s): head injury as 4 yr old. History of Any Multi-Drug Resistant Organisms: None Reported Past Surgical History: Appendectomy, Heart Catheterization With Stent Additional Past Surgical History / Comment(s): back cyst removed, colonoscopy , PTCA WITH STENT Past Anesthesia/Blood Transfusion Reactions: No Reported Reaction Additional Past Anesthesia/Blood Transfusion Reaction / Comment(s): Pt has never recieved blood. Date of Last Stent Placement:: Past Psychological History: No Psychological Hx Reported Smoking Status: Former smoker Past Alcohol Use History: Daily Past Drug Use History: None Reported - Past Family History Sister(s) Family Medical History: Cancer Brother(s) Family Medical History: Cancer Father Family Medical History: Coronary Artery Disease (CAD) Additional Family Medical History / Comment(s): Father had a heart transplant. He in his mid 60's. Mother Family Medical History: Cancer, Myocardial Infarction ([place]) Additional Family Medical History / Comment(s): LUNG CANCER General Exam Limitations: no limitations General appearance: alert, in no apparent distress Head exam: Present: atraumatic, normocephalic Eye exam: Present: normal appearance, EOMI ENT exam: Present: mucous membranes moist Neck exam: Present: other (Trachea is in midline) Respiratory exam: Present: normal lung sounds bilaterally. Absent: respiratory distress, wheezes, rales, rhonchi, stridor Cardiovascular Exam: Present: regular rate, normal rhythm, normal heart sounds, other (Normal dorsalis pedis pulses bilaterally) GI/Abdominal exam: Present: soft. Absent: distended, tenderness, guarding Extremities exam: Present: full ROM, other (A small area of swelling, erythema /ecchymosis and tenderness is noted over the patient's inferior left tibial region anteriorly; left lower extremity sensation is intact, and patient has full ROM and 5/5 strength at left ankle and left knee; no fluctuance, crepitation or drainage is appreciated) Neurological exam: Present: alert, oriented X3. Absent: motor sensory deficit Psychiatric exam: Present: normal affect, normal mood Skin exam: Present: warm, dry, normal color Course Vital Signs 12/07/20 17:44 Temperature 98.2 F Pulse Rate 64 Respiratory 18 Rate Blood Pressure 200/102 O2 Sat by Pulse 98 Oximetry Medical Decision Making - Medical Decision Making I suspect that the patient's symptoms are all secondary to lower extremity contusion, however given that the patient has an abrasion with mild surrounding erythema and swelling, will treat the patient with a course of doxycycline for possible mild cellulitis. Patient's x-rays are negative for fracture. Patient was counseled about lower extremity contusions (rest, ice, elevation, analgesics). Patient was clearly explained return and follow-up instructions, and he was instructed to follow up closely with his primary care provider. Patient feels comfortable with this plan. - Radiology Data Radiology results: image reviewed (Left hip/hip x-rays show no acute fracture or dislocation, and no subcutaneous gas is seen) Disposition Clinical Impression: Contusion of left lower extremity, Abrasion, Cellulitis Disposition: HOME SELF-CARE Condition: Stable Instructions (If sedation given, give patient instructions): Cellulitis (ED), Contusion in Adults (ED), Abrasion (ED) Additional Instructions: Return to the ER immediately should you develop new or worsening pain, a fever, increased swelling or redness, drainage of pus, chest pain, shortness of breath, feeling dizzy or faint, or new or worsening symptoms. Follow up closely with your primary care provider. Prescriptions: Doxycycline [Vibramycin] 100 mg PO BID 7 Days #14 capsule Is patient prescribed a controlled substance at d/c from ED?: No Referrals: Jose Eduardo Esposito DO [Primary Care Provider] - 1-2 days Time of Disposition: 19:31
[2020-12-07] MEDS ORDERED: DOXYCYCLINE 100 MG CAP PO STA (18:39)
--- NOTE | 2020-12-07 19:21 | XR ---
EXAMINATION TYPE: XR tibia fibula LT DATE OF EXAM: 12/07/2020 COMPARISON: None HISTORY: Foot swelling. Leg swelling TECHNIQUE: 4 views FINDINGS: I see no fracture nor dislocation. Joint spaces are normal. There are no pathologic calcifi cations. There is minor spurring on the anterior patella. There is minimal vascular calcification. Th ere is an Achilles calcaneal spur. IMPRESSION: Negative left tibia and fibula exam. No fracture.
== END 2020-12-07 19:38 | disposition home or self-care (01) ==
LOC: EC 17:40
DX: S80.12XA Contusion of left lower leg, initial encounter (principal); L03.116 Cellulitis of left lower limb; I10 Essential (primary) hypertension; Z79.899 Other long term (current) drug therapy; Z87.891 Personal history of nicotine dependence; Z86.718 Personal history of other venous thrombosis and embolism; W22.8XXA Striking against or struck by other objects, initial encounter
CPT/HCPCS: 99283

== ENCOUNTER 2021-09-18 21:32 | Emergency (ER) | payer OTHER ==
[2021-09-18 21:44] VITALS: TEMP 98
[2021-09-18] MEDS ORDERED: SODIUM CHLORIDE 0.9% 1,000 ML IV STA (21:57)
--- NOTE | 2021-09-18 22:13 | ED ---
Chest Pain HPI - General Chief Complaint: Chest Pain Stated Complaint: Chest pain,irregular heart rate Time Seen by Provider: 09/18/21 21:55 Source: patient Mode of arrival: wheelchair Limitations: no limitations - Related Data Home Medications Medication Instructions Recorded Confirmed amLODIPine [Norvasc] 10 mg PO DAILY 05/23/14 09/18/21 lisinopriL [Zestril] 20 mg PO TID 05/23/14 09/18/21 Potassium Chloride [Potassium 8 meq PO DAILY 11/17/18 09/18/21 Chloride ER] Furosemide [Lasix] 40 mg PO DAILY 11/18/18 09/18/21 Aspirin EC [Ecotrin Low Dose] 81 mg PO DAILY 09/18/21 09/18/21 [place]-3 Acid Ethyl Esters [Lovaza] 2 gm PO BID 09/18/21 09/18/21 Rivaroxaban [Xarelto] 20 mg PO DAILY 09/18/21 09/18/21 Sotalol [Betapace] 80 mg PO BID 09/18/21 09/18/21 hydrALAZINE HCL [Apresoline] 100 mg PO BID 09/18/21 09/18/21 Allergies Allergy/AdvReac Type Severity Reaction Status Date / Time No Known Allergies Allergy Verified 09/18/21 22:45 Review of Systems ROS Statement: Those systems with pertinent positive or pertinent negative responses have been documented in the HPI. ROS Other: All systems not noted in ROS Statement are negative. EKG Findings - EKG Comments: EKG Findings:: EKG shows A. fib with RVR 105 QRS 84 QTc 446 Past Medical History Past Medical History: Deep Vein Thrombosis (DVT), GERD/Reflux, Hyperlipidemia, Hypertension, Osteoarthritis (OA), Pneumonia Additional Past Medical History / Comment(s): head injury as 4 yr old. History of Any Multi-Drug Resistant Organisms: None Reported Past Surgical History: Appendectomy, Heart Catheterization With Stent Additional Past Surgical History / Comment(s): back cyst removed, colonoscopy , PTCA WITH STENT Past Anesthesia/Blood Transfusion Reactions: No Reported Reaction Additional Past Anesthesia/Blood Transfusion Reaction / Comment(s): Pt has never recieved blood. Date of Last Stent Placement:: Past Psychological History: No Psychological Hx Reported Smoking Status: Former smoker Past Alcohol Use History: Daily Past Drug Use History: None Reported - Past Family History Sister(s) Family Medical History: Cancer Brother(s) Family Medical History: Cancer Father Family Medical History: Coronary Artery Disease (CAD) Additional Family Medical History / Comment(s): Father had a heart transplant. He in his mid 60's. Mother Family Medical History: Cancer, Myocardial Infarction ([place]) Additional Family Medical History / Comment(s): LUNG CANCER General Exam Limitations: no limitations Course Vital Signs 09/18/21 09/18/21 09/18/21 21:39 22:30 22:31 Temperature 98 F Pulse Rate 94 116 H Pulse Rate [ 109 H Instrument Lens Grinder Apprentice ] Respiratory 18 20 Rate Blood Pressure 150/72 133/94 O2 Sat by Pulse 93 L 94 L Oximetry 09/18/21 09/18/21 23:00 23:35 Temperature Pulse Rate 111 H 109 H Pulse Rate [ Instrument Lens Grinder Apprentice ] Respiratory 18 18 Rate Blood Pressure 108/97 O2 Sat by Pulse 93 L 95 Oximetry Disposition Clinical Impression: Atrial fibrillation with rapid ventricular response Disposition: HOME SELF-CARE Condition: Good Instructions (If sedation given, give patient instructions): A-fib (Atrial Fibrillation) (ED) Is patient prescribed a controlled substance at d/c from ED?: No Referrals: Jose Eduardo Esopsito DO [Primary Care Provider] - 1-2 days
--- NOTE | 2021-09-18 22:19 | XR ---
EXAMINATION TYPE: XR chest 2V DATE OF EXAM: 09/18/2021 COMPARISON: 11/28/2019 HISTORY: Chest pain TECHNIQUE: 2 views FINDINGS: Heart is normal. Lungs are clear of infiltrate. There is no heart failure. There are no hil ar masses. Costophrenic angles are clear. The bony thorax is intact. IMPRESSION: No active cardiopulmonary disease. Normal heart. There is clearing of the mild left side atelectasis to Large extent compared to old exam..
[2021-09-18 22:30] LABS: Basophils % (A) 0 %; Eosinophils # (A) 0.3 k/uL (0-0.7); Eosinophils % (A) 4 %; HCT 47.1 % (39.0-53.0); HGB 16.3 gm/dL (13.0-17.5); Lymphocytes # (A) 1.3 k/uL (1.0-4.8); Lymphocytes % (A) 16 %; MCH 27.8 pg (25.0-35.0); MCHC 34.7 g/dL (31.0-37.0); Mean Platelet Volume 8.1; Monocytes # (A) 0.8 k/uL (0-1.0); Monocytes % (A) 9 %; Neutrophils # (A) 5.7 k/uL (1.3-7.7); Neutrophils % (A) 68 %; Platelet Count 184 k/uL (150-450); RBC 5.89 m/uL (4.30-5.90); RDW 15.2 % (11.5-15.5); WBC 8.3 k/uL (3.8-10.6)
[2021-09-18] MEDS ORDERED: DILTIAZEM ORAL 60 MG TAB PO STA (22:41)
[2021-09-18] MEDS ORDERED: METOPROLOL TARTRATE 50 MG TAB PO STA (22:41)
[2021-09-18 22:47] LABS: ALT 38 U/L (4-49); AST 36 U/L (17-59); African American GFR (CKD) >90 (>60 ml/min/1.73 sqM); Alkaline Phosphatase 150 U/L (38-126); Anion Gap 10 mmol/L; Blood Urea Nitrogen 21 mg/dL (9-20); Calcium 9.3 mg/dL (8.4-10.2); Carbon Dioxide 23 mmol/L (22-30); Chloride 104 mmol/L (98-107); Glucose 161 mg/dL (74-99); Lipase 96 U/L (23-300); Non-African American GFR(CKD) >90 (>60 ml/min/1.73 sqM); Sodium 137 mmol/L (137-145); Total Bilirubin 0.7 mg/dL (0.2-1.3); Total Protein 7.3 g/dL (6.3-8.2)
[2021-09-18 22:53] LABS: INR 0.9 (<1.2); Prothrombin Time 9.7 sec (9.0-12.0)
[2021-09-18 23:01] VITALS: BP 108/97; RESP 18
[2021-09-18 23:11] LABS: Partial Thromboplastin Time 19.1 sec (22.0-30.0)
[2021-09-18 23:36] VITALS: PULSE 109
== END 2021-09-18 23:59 | disposition home or self-care (01) ==
LOC: EC 21:32
DX: I48.20 Chronic atrial fibrillation, unspecified (principal); K21.9 Gastro-esophageal reflux disease without esophagitis; E78.5 Hyperlipidemia, unspecified; I10 Essential (primary) hypertension; M19.90 Unspecified osteoarthritis, unspecified site; Z79.82 Long term (current) use of aspirin; Z86.718 Personal history of other venous thrombosis and embolism; Z90.49 Acquired absence of other specified parts of digestive tract; Z87.891 Personal history of nicotine dependence
CPT/HCPCS: 36415; 71046; 80053; 83690; 83735; 83880; 84484; 85025; 85610; 85730; 93005; 99285

== ENCOUNTER 2021-12-03 07:59 | Emergency (ER) | payer OTHER ==
[2021-12-03 08:05] VITALS: TEMP 98.5
[2021-12-03] MEDS ORDERED: SODIUM CHLORIDE 0.9% 500 ML 500 ML IV ONE (08:12)
[2021-12-03] MEDS ORDERED: DEXAMETHASONE SOD PHOSPHATE 10 MG/ML 1 ML VIAL IVP STA (08:12)
[2021-12-03] MEDS ORDERED: IPRATROPIUM-ALBUTEROL 3 ML NEB INHALATION STA (08:12)
[2021-12-03] MEDS ORDERED: SODIUM CHLORIDE 0.9% 1,000 ML IV ONE (08:12)
[2021-12-03] MEDS ORDERED: guaiFENesin-Coden 100-10MG/5ML 10 ML CUP PO STA (08:13)
--- NOTE | 2021-12-03 08:38 | XR ---
EXAMINATION TYPE: XR chest 2V DATE OF EXAM: 12/03/2021 COMPARISON: 09/18/2021 HISTORY: 61-year-old male with cough and shortness of breath TECHNIQUE: PA and lateral views FINDINGS: Heart normal size. Aorta and pulmonary vasculature within normal limits. Hyperinflation. Peribronchia l cuffing. Mild patchy interstitial changes in the lower lungs. IMPRESSION: COPD. Peribronchial cuffing could reflect bronchitis or chronic asthma. There is some patchy intersti tial change in the lower lungs that could represent atelectasis. Correlate to exclude atypical/COVID pneumonia.
[2021-12-03 08:47] LABS: Basophils % (A) 0 %; Eosinophils % (A) 1 %; HCT 47.6 % (39.0-53.0); Lymphocytes # (A) 0.6 k/uL (1.0-4.8); Lymphocytes % (A) 24 %; MCH 27.3 pg (25.0-35.0); MCHC 33.6 g/dL (31.0-37.0); MCV 81.2 fL (80.0-100.0); Mean Platelet Volume 8.8; Monocytes # (A) 0.3 k/uL (0-1.0); Monocytes % (A) 12 %; Neutrophils # (A) 1.6 k/uL (1.3-7.7); Neutrophils % (A) 59 %; Platelet Count 127 k/uL (150-450); RBC 5.85 m/uL (4.30-5.90); RDW 14.5 % (11.5-15.5); WBC 2.6 k/uL (3.8-10.6)
[2021-12-03 09:02] LABS: ALT 39 U/L (4-49); AST 43 U/L (17-59); African American GFR (CKD) >90 (>60 ml/min/1.73 sqM); Albumin 3.7 g/dL (3.5-5.0); Alkaline Phosphatase 115 U/L (38-126); Anion Gap 8 mmol/L; Blood Urea Nitrogen 15 mg/dL (9-20); Calcium 8.3 mg/dL (8.4-10.2); Carbon Dioxide 24 mmol/L (22-30); Chloride 103 mmol/L (98-107); Glucose 151 mg/dL (74-99); Non-African American GFR(CKD) >90 (>60 ml/min/1.73 sqM); Potassium 3.7 mmol/L (3.5-5.1); Sodium 135 mmol/L (137-145); Total Bilirubin 0.9 mg/dL (0.2-1.3); Total Protein 7.2 g/dL (6.3-8.2)
--- NOTE | 2021-12-03 09:20 | ED ---
URI HPI - General Chief Complaint: Upper Respiratory Infection Stated Complaint: pneumonia Time Seen by Provider: 12/03/21 08:03 Source: patient, RN notes reviewed Mode of arrival: ambulatory Limitations: no limitations - History of Present Illness Initial Comments: 61-year-old male present emergency department with chief complaint cough congestion. Patient states he was sick over 2 weeks ago in which she was diagnosed with COVID-19. Patient states started feeling better but recently started having increasing cough, productive cough with congestion. Patient denies any recent fever or chills nobody is currently. Patient states he is worried about his recurrent pneumonia. Patient denies any nausea vomiting diarrhea constipation. - Related Data Home Medications Medication Instructions Recorded Confirmed amLODIPine [Norvasc] 10 mg PO DAILY 05/23/14 12/03/21 lisinopriL [Zestril] 20 mg PO TID 05/23/14 12/03/21 Potassium Chloride [Potassium 8 meq PO DAILY 11/17/18 12/03/21 Chloride ER] Furosemide [Lasix] 40 mg PO DAILY 11/18/18 12/03/21 Aspirin EC [Ecotrin Low Dose] 81 mg PO DAILY 09/18/21 12/03/21 [place]-3 Acid Ethyl Esters [Lovaza] 2 gm PO BID 09/18/21 12/03/21 Rivaroxaban [Xarelto] 20 mg PO DAILY 09/18/21 12/03/21 Sotalol [Betapace] 80 mg PO BID 09/18/21 12/03/21 hydrALAZINE HCL [Apresoline] 100 mg PO BID 09/18/21 12/03/21 Tiotropium Br/Olodaterol HCl 1 puff INHALATION RT-DAILY 12/03/21 12/03/21 [Stiolto Respimat Inhal [place]] Previous Rx's Medication Instructions Recorded Azithromycin [Zithromax Z-pack (6 0 mg PO DIRECTED #1 packet 12/03/21 tabs)] Benzonatate [Tessalon Perles] 100 mg PO TID PRN #15 capsule 12/03/21 Dexamethasone [Decadron] 6 mg PO DAILY #5 tablet 12/03/21 Allergies Allergy/AdvReac Type Severity Reaction Status Date / Time No Known Allergies Allergy Verified 12/03/21 09:17 Review of Systems ROS Statement: Those systems with pertinent positive or pertinent negative responses have been documented in the HPI. ROS Other: All systems not noted in ROS Statement are negative. Past Medical History Past Medical History: Deep Vein Thrombosis (DVT), GERD/Reflux, Hyperlipidemia, Hypertension, Osteoarthritis (OA), Pneumonia Additional Past Medical History / Comment(s): head injury as 4 yr old. History of Any Multi-Drug Resistant Organisms: None Reported Past Surgical History: Appendectomy, Heart Catheterization With Stent Additional Past Surgical History / Comment(s): back cyst removed, colonoscopy , PTCA WITH STENT, r shoulder Past Anesthesia/Blood Transfusion Reactions: No Reported Reaction Additional Past Anesthesia/Blood Transfusion Reaction / Comment(s): Pt has never recieved blood. Date of Last Stent Placement:: Past Psychological History: No Psychological Hx Reported Smoking Status: Former smoker Past Alcohol Use History: None Reported Past Drug Use History: None Reported - Past Family History Sister(s) Family Medical History: Cancer Brother(s) Family Medical History: Cancer Father Family Medical History: Coronary Artery Disease (CAD) Additional Family Medical History / Comment(s): Father had a heart transplant. He in his mid 60's. Mother Family Medical History: Cancer, Myocardial Infarction ([place]) Additional Family Medical History / Comment(s): LUNG CANCER General Exam Limitations: no limitations General appearance: alert, in no apparent distress Head exam: Present: atraumatic, normocephalic, normal inspection Eye exam: Present: normal appearance, PERRL, EOMI. Absent: scleral icterus, conjunctival injection, periorbital swelling ENT exam: Present: normal exam, normal oropharynx, mucous membranes moist Neck exam: Present: normal inspection, full ROM. Absent: tenderness, meningismus, lymphadenopathy Respiratory exam: Present: wheezes, rhonchi. Absent: normal lung sounds bilaterally, respiratory distress, rales, stridor Cardiovascular Exam: Present: regular rate, normal rhythm, normal heart sounds. Absent: systolic murmur, diastolic murmur, rubs, gallop, clicks Course Vital Signs 12/03/21 12/03/21 08:02 08:31 Temperature 98.5 F Pulse Rate 66 76 Respiratory 18 16 Rate Blood Pressure 145/75 O2 Sat by Pulse 94 L Oximetry Medical Decision Making - Medical Decision Making 61-year-old presented for cough congestion. Patient is 2 weeks out was feeling better but he developed symptoms after COVID-19. Patient we treated for suspected underlying infection will be placed in a right steroids return parameters were discussed. - Lab Data Result diagrams: 12/03/21 08:35 12/03/21 08:35 Lab Results 12/03/21 12/03/21 Range/Units 08:35 08:35 WBC 2.6 L (3.8-10.6) k/uL RBC 5.85 (4.30-5.90) m/uL Hgb 16.0 (13.0-17.5) gm/dL Hct 47.6 (39.0-53.0) % MCV 81.2 (80.0-100.0) fL MCH 27.3 (25.0-35.0) pg MCHC 33.6 (31.0-37.0) g/dL RDW 14.5 (11.5-15.5) % Plt Count 127 L (150-450) k/uL MPV 8.8 Neutrophils % 59 % Lymphocytes % 24 % Monocytes % 12 % Eosinophils % 1 % Basophils % 0 % Neutrophils # 1.6 (1.3-7.7) k/uL Lymphocytes # 0.6 L (1.0-4.8) k/uL Monocytes # 0.3 (0-1.0) k/uL Eosinophils # 0.0 (0-0.7) k/uL Basophils # 0.0 (0-0.2) k/uL Manual Slide Review Performed RBC Morphology Normal Sodium 135 L (137-145) mmol/L Potassium 3.7 (3.5-5.1) mmol/L Chloride 103 (98-107) mmol/L Carbon Dioxide 24 (22-30) mmol/L Anion Gap 8 mmol/L BUN 15 (9-20) mg/dL Creatinine 0.91 (0.66-1.25) mg/dL Est GFR (CKD-EPI)AfAm >90 (>60 ml/min/1.73 sqM) Est GFR (CKD-EPI)NonAf >90 (>60 ml/min/1.73 sqM) Glucose 151 H (74-99) mg/dL Calcium 8.3 L (8.4-10.2) mg/dL Total Bilirubin 0.9 (0.2-1.3) mg/dL AST 43 (17-59) U/L ALT 39 (4-49) U/L Alkaline Phosphatase 115 (38-126) U/L Total Protein 7.2 (6.3-8.2) g/dL Albumin 3.7 (3.5-5.0) g/dL Disposition Clinical Impression: Atypical pneumonia Disposition: HOME SELF-CARE Condition: Stable Instructions (If sedation given, give patient instructions): Upper Respiratory Infection (ED) Additional Instructions: Please return to the Emergency Department if symptoms worsen or any other concerns. Prescriptions: Dexamethasone [Decadron] 6 mg PO DAILY #5 tablet Benzonatate [Tessalon Perles] 100 mg PO TID PRN #15 capsule PRN Reason: cough Azithromycin [Zithromax Z-pack (6 tabs)] 0 mg PO DIRECTED #1 packet Is patient prescribed a controlled substance at d/c from ED?: No Referrals: Jose Eduardo Esposito DO [Primary Care Provider] - 1-2 days Time of Disposition: 11:07
[2021-12-03] MEDS ORDERED: cefTRIAXone IN SWFI 1,000 MG/10 ML SYRINGE IVP STA (11:03)
[2021-12-03 11:21] VITALS: BP 140/81; PULSE 56; RESP 18
== END 2021-12-03 11:21 | disposition home or self-care (01) ==
LOC: EC 07:59
DX: J18.9 Pneumonia, unspecified organism (principal); K21.9 Gastro-esophageal reflux disease without esophagitis; E78.5 Hyperlipidemia, unspecified; I10 Essential (primary) hypertension; M19.90 Unspecified osteoarthritis, unspecified site; Z79.82 Long term (current) use of aspirin; Z86.718 Personal history of other venous thrombosis and embolism; Z90.49 Acquired absence of other specified parts of digestive tract; Z87.891 Personal history of nicotine dependence
CPT/HCPCS: 99283; 96374; 96375; 96361; 36415; 94640; 80053; 85025; 71046; J1100; J0696

== ENCOUNTER 2021-12-21 21:30 | Emergency (ER) | payer OTHER ==
[2021-12-21 21:38] VITALS: BP 151/70; TEMP 97.5
[2021-12-21 22:15] LABS: Basophils % (A) 1 %; Eosinophils # (A) 0.1 k/uL (0-0.7); Eosinophils % (A) 2 %; HCT 49.3 % (39.0-53.0); HGB 16.2 gm/dL (13.0-17.5); Lymphocytes # (A) 1.2 k/uL (1.0-4.8); Lymphocytes % (A) 16 %; MCH 27.3 pg (25.0-35.0); MCHC 32.8 g/dL (31.0-37.0); MCV 83.2 fL (80.0-100.0); Mean Platelet Volume 7.8; Monocytes # (A) 0.6 k/uL (0-1.0); Monocytes % (A) 8 %; Neutrophils # (A) 5.2 k/uL (1.3-7.7); Neutrophils % (A) 72 %; Platelet Count 123 k/uL (150-450); RBC 5.93 m/uL (4.30-5.90); RDW 15.1 % (11.5-15.5); WBC 7.2 k/uL (3.8-10.6)
[2021-12-21 22:29] LABS: Partial Thromboplastin Time 29.1 sec (22.0-30.0); Prothrombin Time 10.9 sec (9.0-12.0)
[2021-12-21 22:31] LABS: ALT 61 U/L (4-49); AST 43 U/L (17-59); African American GFR (CKD) >90 (>60 ml/min/1.73 sqM); Albumin 3.7 g/dL (3.5-5.0); Alkaline Phosphatase 140 U/L (38-126); Anion Gap 9 mmol/L; Blood Urea Nitrogen 21 mg/dL (9-20); Calcium 8.8 mg/dL (8.4-10.2); Carbon Dioxide 23 mmol/L (22-30); Chloride 104 mmol/L (98-107); Glucose 229 mg/dL (74-99); Magnesium 1.7 mg/dL (1.6-2.3); Non-African American GFR(CKD) >90 (>60 ml/min/1.73 sqM); Potassium 3.5 mmol/L (3.5-5.1); Sodium 136 mmol/L (137-145); Total Bilirubin 0.9 mg/dL (0.2-1.3); Total Protein 6.8 g/dL (6.3-8.2)
--- NOTE | 2021-12-21 22:40 | XR ---
EXAMINATION TYPE: XR chest 2V DATE OF EXAM: 12/21/2021 COMPARISON: 12/03/2021 HISTORY: Cough TECHNIQUE: 2 views FINDINGS: Heart is normal. Lungs are clear of consolidation. There are no hilar masses. Costophrenic angles are clear. There is some pleural thickening at the cardiac borders bilaterally. IMPRESSION: Bilateral anterior pleural scarring at the cardiophrenic angles. No heart failure. No sig nificant change.
[2021-12-21] MEDS ORDERED: METOPROLOL TARTRATE 5 MG/5 ML VIAL IVP SCH (23:15)
[2021-12-21 23:40] VITALS: RESP 16
--- NOTE | 2021-12-22 01:03 | ED ---
Arrhythmia/Palpitations HPI - General Chief Complaint: Arrhythmia/Palpitations Stated Complaint: A-Fib Time Seen by Provider: 12/21/21 21:47 Source: patient Mode of arrival: ambulatory Limitations: no limitations - Related Data Home Medications Medication Instructions Recorded Confirmed amLODIPine [Norvasc] 10 mg PO DAILY 05/23/14 12/21/21 lisinopriL [Zestril] 20 mg PO TID 05/23/14 12/21/21 Potassium Chloride [Potassium 8 meq PO DAILY 11/17/18 12/21/21 Chloride ER] Furosemide [Lasix] 40 mg PO DAILY 11/18/18 12/21/21 Aspirin EC [Ecotrin Low Dose] 81 mg PO DAILY 09/18/21 12/21/21 [place]-3 Acid Ethyl Esters [Lovaza] 2 gm PO BID 09/18/21 12/21/21 Rivaroxaban [Xarelto] 20 mg PO DAILY 09/18/21 12/21/21 Sotalol [Betapace] 80 mg PO BID 09/18/21 12/21/21 hydrALAZINE HCL [Apresoline] 100 mg PO BID 09/18/21 12/21/21 Tiotropium Br/Olodaterol HCl 1 puff INHALATION RT-DAILY 12/03/21 12/21/21 [Stiolto Respimat Inhal [place]] Ascorbic Acid [Vitamin C] 1,000 mg PO DAILY 12/21/21 12/21/21 Atorvastatin Calcium [Lipitor] 80 mg PO HS 12/21/21 12/21/21 Cholecalciferol [Vitamin D3 (25 50 mcg PO DAILY 12/21/21 12/21/21 Mcg = 1000 Iu)] Omeprazole 20 mg PO DAILY 12/21/21 12/21/21 Zinc 50 mg PO DAILY 12/21/21 12/21/21 Allergies Allergy/AdvReac Type Severity Reaction Status Date / Time No Known Allergies Allergy Verified 12/21/21 22:23 Review of Systems ROS Statement: Those systems with pertinent positive or pertinent negative responses have been documented in the HPI. ROS Other: All systems not noted in ROS Statement are negative. Past Medical History Past Medical History: Atrial Fibrillation, Deep Vein Thrombosis (DVT), GERD/Reflux, Hyperlipidemia, Hypertension, Osteoarthritis (OA), Pneumonia Additional Past Medical History / Comment(s): head injury as 4 yr old. History of Any Multi-Drug Resistant Organisms: None Reported Past Surgical History: Appendectomy, Heart Catheterization With Stent Additional Past Surgical History / Comment(s): back cyst removed, colonoscopy , PTCA WITH STENT, r shoulder Past Anesthesia/Blood Transfusion Reactions: No Reported Reaction Additional Past Anesthesia/Blood Transfusion Reaction / Comment(s): Pt has never recieved blood. Date of Last Stent Placement:: Past Psychological History: No Psychological Hx Reported Smoking Status: Former smoker Past Alcohol Use History: None Reported Past Drug Use History: None Reported - Past Family History Sister(s) Family Medical History: Cancer Brother(s) Family Medical History: Cancer Father Family Medical History: Coronary Artery Disease (CAD) Additional Family Medical History / Comment(s): Father had a heart transplant. He in his mid 60's. Mother Family Medical History: Cancer, Myocardial Infarction ([place]) Additional Family Medical History / Comment(s): LUNG CANCER General Exam Limitations: no limitations Course Vital Signs 12/21/21 12/21/21 12/22/21 21:34 23:39 00:10 Temperature 97.5 F L Pulse Rate 135 H 90 73 Respiratory 20 16 16 Rate Blood Pressure 151/70 O2 Sat by Pulse 94 L 98 98 Oximetry Medical Decision Making - Lab Data Result diagrams: 12/21/21 22:05 12/21/21 22:05 Lab Results 12/21/21 12/21/21 12/21/21 Range/Units 22:05 22:05 22:05 WBC 7.2 (3.8-10.6) k/uL RBC 5.93 H (4.30-5.90) m/uL Hgb 16.2 (13.0-17.5) gm/dL Hct 49.3 (39.0-53.0) % MCV 83.2 (80.0-100.0) fL MCH 27.3 (25.0-35.0) pg MCHC 32.8 (31.0-37.0) g/dL RDW 15.1 (11.5-15.5) % Plt Count 123 L (150-450) k/uL MPV 7.8 Neutrophils % 72 % Lymphocytes % 16 % Monocytes % 8 % Eosinophils % 2 % Basophils % 1 % Neutrophils # 5.2 (1.3-7.7) k/uL Lymphocytes # 1.2 (1.0-4.8) k/uL Monocytes # 0.6 (0-1.0) k/uL Eosinophils # 0.1 (0-0.7) k/uL Basophils # 0.0 (0-0.2) k/uL PT 10.9 (9.0-12.0) sec INR 1.0 (<1.2) APTT 29.1 (22.0-30.0) sec Sodium 136 L (137-145) mmol/L Potassium 3.5 (3.5-5.1) mmol/L Chloride 104 (98-107) mmol/L Carbon Dioxide 23 (22-30) mmol/L Anion Gap 9 mmol/L BUN 21 H (9-20) mg/dL Creatinine 0.84 (0.66-1.25) mg/dL Est GFR (CKD-EPI)AfAm >90 (>60 ml/min/1.73 sqM) Est GFR (CKD-EPI)NonAf >90 (>60 ml/min/1.73 sqM) Glucose 229 H (74-99) mg/dL Calcium 8.8 (8.4-10.2) mg/dL Magnesium 1.7 (1.6-2.3) mg/dL Total Bilirubin 0.9 (0.2-1.3) mg/dL AST 43 (17-59) U/L ALT 61 H (4-49) U/L Alkaline Phosphatase 140 H (38-126) U/L Troponin I (0.000-0.034) ng/mL Total Protein 6.8 (6.3-8.2) g/dL Albumin 3.7 (3.5-5.0) g/dL 12/21/21 Range/Units 22:05 WBC (3.8-10.6) k/uL RBC (4.30-5.90) m/uL Hgb (13.0-17.5) gm/dL Hct (39.0-53.0) % MCV (80.0-100.0) fL MCH (25.0-35.0) pg MCHC (31.0-37.0) g/dL RDW (11.5-15.5) % Plt Count (150-450) k/uL MPV Neutrophils % % Lymphocytes % % Monocytes % % Eosinophils % % Basophils % % Neutrophils # (1.3-7.7) k/uL Lymphocytes # (1.0-4.8) k/uL Monocytes # (0-1.0) k/uL Eosinophils # (0-0.7) k/uL Basophils # (0-0.2) k/uL PT (9.0-12.0) sec INR (<1.2) APTT (22.0-30.0) sec Sodium (137-145) mmol/L Potassium (3.5-5.1) mmol/L Chloride (98-107) mmol/L Carbon Dioxide (22-30) mmol/L Anion Gap mmol/L BUN (9-20) mg/dL Creatinine (0.66-1.25) mg/dL Est GFR (CKD-EPI)AfAm (>60 ml/min/1.73 sqM) Est GFR (CKD-EPI)NonAf (>60 ml/min/1.73 sqM) Glucose (74-99) mg/dL Calcium (8.4-10.2) mg/dL Magnesium (1.6-2.3) mg/dL Total Bilirubin (0.2-1.3) mg/dL AST (17-59) U/L ALT (4-49) U/L Alkaline Phosphatase (38-126) U/L Troponin I 0.016 (0.000-0.034) ng/mL Total Protein (6.3-8.2) g/dL Albumin (3.5-5.0) g/dL Disposition Clinical Impression: Atrial fibrillation with rapid ventricular response Disposition: HOME SELF-CARE Condition: Good Instructions (If sedation given, give patient instructions): A-fib (Atrial Fibrillation) (ED) Is patient prescribed a controlled substance at d/c from ED?: No Referrals: Jose Eduardo Esposito DO [Primary Care Provider] - 1-2 days Jazzy Wade MD [STAFF PHYSICIAN] - 1-2 days
[2021-12-22 01:39] VITALS: PULSE 80
== END 2021-12-22 01:39 | disposition home or self-care (01) ==
LOC: EC 21:30
DX: I48.20 Chronic atrial fibrillation, unspecified (principal); E78.5 Hyperlipidemia, unspecified; I10 Essential (primary) hypertension; K21.9 Gastro-esophageal reflux disease without esophagitis; M19.90 Unspecified osteoarthritis, unspecified site; Z87.891 Personal history of nicotine dependence; Z79.01 Long term (current) use of anticoagulants; Z79.82 Long term (current) use of aspirin; Z79.899 Other long term (current) drug therapy; Z86.718 Personal history of other venous thrombosis and embolism
CPT/HCPCS: 36415; 71046; 80053; 83735; 84484; 85025; 85610; 85730; 93005; 96374; 99285

== ENCOUNTER 2023-05-01 07:07 | Emergency (ER) | payer OTHER ==
[2023-05-01 07:17] VITALS: BP 151/70; RESP 20; TEMP 97.6
[2023-05-01] MEDS ORDERED: methylPREDNISolone SOD SUCCI 125 MG/2 ML VIAL IM ONE (07:25)
[2023-05-01] MEDS ORDERED: IPRATROPIUM-ALBUTEROL 3 ML NEB INHALATION STA (07:25)
--- NOTE | 2023-05-01 07:26 | ED ---
URI HPI - General Chief Complaint: Upper Respiratory Infection Stated Complaint: Pneumonia Time Seen by Provider: 05/01/23 07:14 Source: patient, RN notes reviewed Mode of arrival: ambulatory Limitations: no limitations - History of Present Illness Initial Comments: This is a 63-year-old male who presents to the emergency department for coughing and congestion. States that the symptoms started 3 days ago. Denies any chest pain or shortness of breath. The cough is productive. Denies any fevers, chills, or sick contacts. Also denies any history of respiratory illnesses such as asthma or COPD. He is a former smoker. Patient states that he is concerned that he may have pneumonia again. Denies any fevers, chills, sore throat, dyspnea, chest pain, palpitations, abdominal pain, nausea, vomiting, diarrhea, back pain, or headaches. MD Complaint: cough, nasal congestion Onset/Timin -: days(s) - Related Data Home Medications Medication Instructions Recorded Confirmed amLODIPine [Norvasc] 10 mg PO DAILY 05/23/14 12/21/21 lisinopriL [Zestril] 20 mg PO TID 05/23/14 12/21/21 Potassium Chloride [Potassium 8 meq PO DAILY 11/17/18 12/21/21 Chloride ER] Furosemide [Lasix] 40 mg PO DAILY 11/18/18 12/21/21 Aspirin EC [Ecotrin Low Dose] 81 mg PO DAILY 09/18/21 12/21/21 [place]-3 Acid Ethyl Esters [Lovaza] 2 gm PO BID 09/18/21 12/21/21 Rivaroxaban [Xarelto] 20 mg PO DAILY 09/18/21 12/21/21 Sotalol [Betapace] 80 mg PO BID 09/18/21 12/21/21 hydrALAZINE HCL [Apresoline] 100 mg PO BID 09/18/21 12/21/21 Tiotropium Br/Olodaterol HCl 1 puff INHALATION RT-DAILY 12/03/21 12/21/21 [Stiolto Respimat Inhal [place]] Ascorbic Acid [Vitamin C] 1,000 mg PO DAILY 12/21/21 12/21/21 Atorvastatin Calcium [Lipitor] 80 mg PO HS 12/21/21 12/21/21 Cholecalciferol [Vitamin D3 (25 50 mcg PO DAILY 12/21/21 12/21/21 Mcg = 1000 Iu)] Omeprazole 20 mg PO DAILY 12/21/21 12/21/21 Zinc 50 mg PO DAILY 12/21/21 12/21/21 Previous Rx's Medication Instructions Recorded Promethazine/Dextromethorphan 5 ml PO Q4-6H PRN #473 ml 05/01/23 [Promethazine-Dm Syrup] predniSONE 50 mg PO DAILY 4 Days #4 tab 05/01/23 Allergies Allergy/AdvReac Type Severity Reaction Status Date / Time No Known Allergies Allergy Verified 05/01/23 07:17 Review of Systems ROS Statement: Those systems with pertinent positive or pertinent negative responses have been documented in the HPI. ROS Other: All systems not noted in ROS Statement are negative. Past Medical History Past Medical History: Atrial Fibrillation, Deep Vein Thrombosis (DVT), GERD/Reflux, Hyperlipidemia, Hypertension, Osteoarthritis (OA), Pneumonia Additional Past Medical History / Comment(s): head injury as 4 yr old. History of Any Multi-Drug Resistant Organisms: None Reported Past Surgical History: Appendectomy, Heart Catheterization With Stent Additional Past Surgical History / Comment(s): back cyst removed, colonoscopy , PTCA WITH STENT, r shoulder Past Anesthesia/Blood Transfusion Reactions: No Reported Reaction Additional Past Anesthesia/Blood Transfusion Reaction / Comment(s): Pt has never recieved blood. Date of Last Stent Placement:: Past Psychological History: No Psychological Hx Reported Smoking Status: Former smoker Past Alcohol Use History: None Reported Past Drug Use History: None Reported - Past Family History Sister(s) Family Medical History: Cancer Brother(s) Family Medical History: Cancer Father Family Medical History: Coronary Artery Disease (CAD) Additional Family Medical History / Comment(s): Father had a heart transplant. He in his mid 60's. Mother Family Medical History: Cancer, Myocardial Infarction ([place]) Additional Family Medical History / Comment(s): LUNG CANCER General Exam Limitations: no limitations General appearance: alert, in no apparent distress Head exam: Present: atraumatic, normocephalic, normal inspection Respiratory exam: Present: normal lung sounds bilaterally. Absent: respiratory distress, wheezes, rales, rhonchi, stridor Cardiovascular Exam: Present: regular rate, normal rhythm, normal heart sounds. Absent: systolic murmur, diastolic murmur, rubs, gallop, clicks Neurological exam: Present: alert, oriented X3, CN II-XII intact Psychiatric exam: Present: normal affect, normal mood Skin exam: Present: warm, dry, intact, normal color. Absent: rash Course Vital Signs 05/01/23 05/01/23 07:15 09:15 Temperature 97.6 F Pulse Rate 54 L 72 Respiratory 20 Rate Blood Pressure 151/70 O2 Sat by Pulse 94 L Oximetry Medical Decision Making - Medical Decision Making This is a 63-year-old male who presents to the emergency department for coughing and congestion. Was pt. sent in by a medical professional or institution? @ -No Did you speak to anyone other than the patient for history? @ -No Did you review nursing and triage notes? @ -Yes, and I agree, it is accurate with regards to the patient's symptoms. Were old charts reviewed? @ -No Differential Diagnosis? @ -Differential Cough: Influenza, Covid, RSV, croup, allergic rhinitis, GERD, pneumonia, bronchitis, COPD, viral pharyngitis, streptococcal pharyngitis, this is not meant to be an all-inclusive list. EKG interpreted by me (3pts min.)? @ -Not obtained X-rays interpreted by me (1pt min.)? @ -Chest x-ray obtained, my interpretation identifies no localized consolidations or infiltrates. CT interpreted by me (1pt min.)? @ -Not obtained U/S interpreted by me (1pt. min.)? @ -Not obtained What testing was considered but not performed? (CT, X-rays, U/S, labs)? Why? @ -None What meds were considered but not given? Why? @ -None Did you discuss the management of the patient with other professionals? @ -No Did you reconcile home meds? @ -No Was smoking cessation discussed for >3mins.? @ -No Was critical care preformed (if so, how long)? @ -No Were there social determinants of health that impacted care today? How? ([place] elessness, low income, unemployed, alcoholism, drug addiction, transportation, low edu. Level, literacy, decrease access to med. care, long-term, rehab)? @ -No Was there de-escalation of care discussed even if they declined? (Discuss DNR or withdrawal of care, Hospice)? @ -No What co-morbidities impacted this encounter? (DM, HTN, Smoking, COPD, CAD, Cancer, CVA, Hep., AIDS, mental health diagnosis, sleep apnea, morbid obesity)? @ -A-fib, HTN, HLD Was patient admitted / discharged? @ -Discharged. COVID, influenza, and RSV testing were negative. Chest x-ray reveals no acute process. Duoneb breathing treatment administered, which the patient states was helpful. Advised the patient that symptoms are most likely related to a viral URI or viral bronchtitis. Rx for prednisone and promethazine DM cough syrup provided with dosing instructions reviewed. Otherwise advised he continue with supportive care and follow up with his PCP for reevaluation of symptoms. Undiagnosed new problem with uncertain prognosis? @ -None Drug Therapy requiring intensive monitoring for toxicity (Heparin, Nitro, Insulin, Cardizem)? @ -None Were any procedures done? @ -None Diagnosis/symptom? @ -Viral URI Acute, or Chronic, or Acute on Chronic? @ -Acute Uncomplicated (without systemic symptoms) or Complicated (systemic symptoms)? @ -Uncomplicated Side effects of treatment? @ -None Exacerbation, Progression, or Severe Exacerbation] @ -Not applicable Poses a threat to life or bodily function? @ -No Return precautions reviewed in depth, the patient is instructed to return to the emergency department with any new, worsening, or concerning symptoms. Patient verbalized understanding. This case was discussed in detail with the attending ED physician, Dr. Tom. Presentation, findings, and treatment plan discussed in detail as well. - Lab Data Lab Results 05/01/23 Range/Units 07:40 Influenza Type A (PCR) Not Detected (Not Detectd) Influenza Type B (PCR) Not Detected (Not Detectd) RSV (PCR) Not Detected (Not Detectd) SARS-CoV-2 (PCR) Not Detected (Not Detectd) - Radiology Data Radiology results: report reviewed, image reviewed Disposition Clinical Impression: Acute upper respiratory infection Disposition: HOME SELF-CARE Instructions (If sedation given, give patient instructions): Upper Respiratory Infection (ED), Acute Bronchitis (ED) Additional Instructions: Return to the emergency department with any new, worsening, or concerning symptoms. Take the prednisone daily for 4 days, with your first dose beginning tomorrow, as you received a dose of steroids in the emergency department. You can take the cough medication every 4-6 hours as needed. Follow up with your primary care provider in 1-2 days. Prescriptions: predniSONE 50 mg PO DAILY 4 Days #4 tab Promethazine/Dextromethorphan [Promethazine-Dm Syrup] 5 ml PO Q4-6H PRN #473 ml PRN Reason: Cough Is patient prescribed a controlled substance at d/c from ED?: No Referrals: Jose Eduardo Esposito DO [Primary Care Provider] - 1-2 days
--- NOTE | 2023-05-01 07:59 | XR ---
EXAMINATION TYPE: XR chest 2V DATE OF EXAM: 05/01/2023 COMPARISON: 12/21/2021 HISTORY: Shortness of breath TECHNIQUE: Frontal and lateral views of the chest are obtained. FINDINGS: Scattered senescent parenchymal changes noted. Hyperinflation compatible with COPD. No evidence for infiltrate. No evidence for atelectasis. Heart size is stable. Mediastinal structures are stable and grossly unremarkable. No evidence for hilar prominence. Degenerative changes dorsal spine. IMPRESSION: 1. No evidence for acute pulmonary disease.
[2023-05-01 09:39] VITALS: PULSE 48
== END 2023-05-01 10:00 | disposition home or self-care (01) ==
LOC: EC 07:07
DX: J06.9 Acute upper respiratory infection, unspecified (principal); I48.91 Unspecified atrial fibrillation; K21.9 Gastro-esophageal reflux disease without esophagitis; E78.5 Hyperlipidemia, unspecified; I10 Essential (primary) hypertension; M19.90 Unspecified osteoarthritis, unspecified site; Z79.82 Long term (current) use of aspirin; Z79.899 Other long term (current) drug therapy; Z20.822 Contact with and (suspected) exposure to COVID-19; Z87.891 Personal history of nicotine dependence
CPT/HCPCS: 94640; 87636; 71046; 99283; 96372; J2930

== ENCOUNTER → 2024-09-03 | Outpatient (CLI) | payer OTHER ==
[2024-09-03 15:29] LABS: Blood Urea Nitrogen 15.1 mg/dL (9.0-27.0); Carbon Dioxide 27.8 mmol/L (21.6-31.8); Chloride 105 mmol/L (96-109); Potassium 4.5 mmol/L (3.5-5.5); Sodium 143 mmol/L (135-145)
[2024-09-03 16:01] LABS: HCT 52.9 % (39.6-50.0); HGB 16.5 g/dL (13.0-17.0); MCH 26.1 pg (27.0-32.0); MCHC 31.2 g/dL (32.0-37.0); MCV 83.6 FL (80.0-97.0); Mean Platelet Volume 10.6 FL (9.5-12.2); NRBC Per 100 WBC 0 X 10*3/uL (0.00-0.01); Platelet Count 133 X 10*3/uL (140-440); RBC 6.33 X 10*6/uL (4.40-5.60); RDW 16.5 % (11.5-14.5); WBC 4.93 X 10*3/uL (4.50-10.00)
== END | disposition home or self-care (01) ==
LOC: LABPAT 11:11
PROVIDERS: ATTEND Internal Medicine
DX: Z01.812 Encounter for preprocedural laboratory examination (principal); I70.213 Atherosclerosis of native arteries of extremities with intermittent claudication, bilateral legs
CPT/HCPCS: 80051; 82565; 84520; 85027

== ENCOUNTER 2024-09-17 09:04 | Day surgery (SDC) | payer OTHER ==
[~2024-09-17 09:04] MED LIST changes: -ASPIRIN 325 MG TAB PO ONE; -ATORVASTATIN 80 MG TAB PO ONE; +HEPARIN SODIUM,PORCINE (1 ML) 2,500 UNIT in SODIUM CHLORIDE 0.9% 250 ML IRRIGATION PRN; +HEPARIN SODIUM,PORCINE 10,000 UNIT in SODIUM CHLORIDE 0.9% 1,000 ML IRRIGATION PRN; -NITROGLYCERIN SL TABS 0.4 MG TAB SUBLINGUAL PRN; -SODIUM CHLORIDE 0.9% 1,000 ML in EMPTY BAG 1 BAG IV ONE; +ZOLPIDEM 5 MG TAB PO PRN
[2024-09-17] MEDS: EMPTY BAG 1 BAG with SODIUM CHLORIDE 0.9% 1,000 ML IV SCH (09:15)
[2024-09-17] MEDS: SODIUM CHLORIDE 0.9% 1,000 ML IV ONE (09:17)
[2024-09-17 09:32] VITALS: RESP 16; TEMP 97.7
[2024-09-17 09:34] LABS: Mean Platelet Volume 8.4; Platelet Count 164 k/uL (150-450)
[2024-09-17 10:08] LABS: Glucose,Whole Blood 105 mg/dL (70-110)
[2024-09-17] MEDS: MIDAZOLAM 2 MG/2 ML VIAL IVP ONE (10:38)
[2024-09-17] MEDS: fentaNYL (PF) 50 MCG/1 ML VIAL IVP ONE (10:38)
[2024-09-17] MEDS: LIDOCAINE 1% INJ 10MG/ML (20 ML MDV) SQ ONE (10:42)
[2024-09-17] MEDS: VERAPAMIL SYRINGE (5 MG/10 ML) INTRAARTER ONE (10:45)
[2024-09-17] MEDS: HEPARIN SODIUM 1,000 UN/ML (10ML VL) IVP ONE (11:02)
[2024-09-17] MEDS: CLOPIDOGREL 75 MG TAB PO ONE (11:06)
[2024-09-17] MEDS: IOPAMIDOL-370 100ML BTL INJ ONE ×2 (12:00)
[2024-09-17] MEDS: IOPAMIDOL-370 125ML BTL INJ ONE (12:00)
[2024-09-17] MEDS ORDERED: NALOXONE 0.4 MG/ML 1 ML VIAL IVP PRN (12:08)
[2024-09-17] MEDS ORDERED: NON FORMULARY DRUG (Fluticasone/Umeclidin/Vilanter [Trelegy Ellipta 200-62.5-25] 1 EACH Bl INHALATION SCH (12:15)
--- NOTE | 2024-09-17 12:25 | P.PCN ---
Description of Procedure: PROCEDURES PERFORMED: Abdominal angiography with bilateral runoff, PUBLIC RELATIONS STUDIES DIRECTOR of right proximal SFA with a 6.0 x 40mm balloon INDICATION: [place] class 3 claudication, abnormal US CONSENT:I have discussed the risks, benefits and alternative therapies for the above-mentioned procedure and for both sedation/analgesia as well as necessary blood product administration, if indicated, as they pertain to this patient. The patient has indicated understanding and acceptance of the risks and procedures discussed. PROCEDURE: After the risks, benefits and alternatives of the above mentioned procedure explained in detail with the patient, informed consent was obtained. Patient was taken to the catheterization lab and prepped and draped in usual fashion. 1% lidocaine was used to anesthetize the right radial area. A 6- Georgian sheath was placed in the right radial artery using modified Seldinger technique. A 5-Georgian pigtail catheter was inserted to the abdominal aorta and DSA imaging was obtained. Patient tolerated the diagnostic portion well. Next, the decision was made to perform intervention of the right SFA. IV heparin was given. A 120 destination sheath was advanced into the right illiac artery. A 0.018 glide advantage wire was used to cross the lesion. Balloon angioplasty was performed with a 6.0 x 40mm balloon. There were no available DCB with adequate length however with balloon angioplasty there was good result and did not feel benefits of DCB outweighed any risks of performing femoral approach. Final angiograms were performed. Pre intervention there was 95% stenosis with delayed flow compared to the profunda. Post intervention there was <10% stenosis and unimpeded flow. A TR band was placed with hemostasis achieved. The patient tolerated the procedure well. Patient was transported back to the post catheterization holding area in stable condition. Conscious Sedation: Patient was monitored under the direct supervision of vision of myself for conscious sedation using Versed and fentanyl for a total duration of 53 minutes HEMODYNAMICS: Ao: 181/91 Abdominal aorta: The abdominal aorta has diffuse calcifcation. Renal arteries are patent bilaterally. There is no significant dissection. There is infra renal dilation dilation concerning for aneurysm, recommend CTA vs abdominal ul trasound. There is no significant stenosis. Right lower extremity: Right common iliac artery: There is no significant stenosis. Right external iliac artery: There is no significant stenosis. Right internal iliac artery: There is no significant stenosis. Right common femoral artery: There is no significant stenosis. Right profunda: There is no significant stenosis. Right SFA: There is 95% proximal stenosis and otherwise diffuse 20-30% stenosis. Right popliteal artery: There is no significant stenosis. Right tibioperoneal trunk: There is no significant stenosis. Right anterior tibial artery: There is 100% proximal stenosis. Right posterior tibial artery: There is no significant stenosis. Right peroneal artery: There is no significant stenosis. Left lower extremity: Left common iliac artery: There is no significant stenosis. Left external iliac artery: There is no significant stenosis. Left internal iliac artery: There is no significant stenosis. Left common femoral artery: There is no significant stenosis. Left profunda: There is no significant stenosis. Left SFA: There is 100% left SFA stenosis. Left popliteal artery: There is no significant stenosis. Left tibioperoneal trunk: There is no significant stenosis. Left anterior tibial artery: There is 100% stenosis. Left posterior tibial artery: There is no significant stenosis. Left peroneal artery: There is no significant stenosis. FINAL IMPRESSION: 1. Peripheral arterial disease as described above including 95% right SFA, 100% left SFA, 100% bilateral anterior tibial artery stenosis. 2. S/p PUBLIC RELATIONS STUDIES DIRECTOR of right proximal SFA with a 6.0 x 40mm balloon 3. Infrarenal aortic dilation concerning for aneurysm PLAN: 1. Aggressive risk factor modification per most recent ACC/AHA guidelines. 2. Coninue Plavix and Xarelto for 3 months 3. Consider left SFA intervention if still having symptoms 4. Consider CTA or abdominal ultrasound to more definitively evaluate for possible aneurysm
[2024-09-17] MEDS: lisinopriL 20 MG TAB PO STA (14:10)
[2024-09-17 15:32] VITALS: BP 162/82
[2024-09-17] MEDS ORDERED: lisinopriL 20 MG TAB PO SCH (16:00)
[2024-09-17 16:50] VITALS: PULSE 65
[2024-09-17] MEDS ORDERED: SOTALOL 80 MG TAB PO SCH (21:00)
[2024-09-17] MEDS ORDERED: NON FORMULARY DRUG (Hydralazine Hcl [Apresoline] 100 MG Tablet) PO SCH (21:00)
[2024-09-17] MEDS ORDERED: NON FORMULARY DRUG (Omeprazole [Omeprazole] 20 MG Capsule) PO SCH (21:00)
[2024-09-17] MEDS ORDERED: ATORVASTATIN 80 MG TAB PO SCH (21:00)
[2024-09-18] MEDS ORDERED: NON FORMULARY DRUG (Ascorbic Acid [Vitamin C] 1,000 MG Tablet) PO SCH (09:00)
[2024-09-18] MEDS ORDERED: POTASSIUM CHLORIDE 8 MEQ PO SCH (09:00)
[2024-09-18] MEDS ORDERED: NON FORMULARY DRUG (Aspirin Ec 81 MG Tablet) PO SCH (09:00)
[2024-09-18] MEDS ORDERED: amLODIPine 10 MG TAB PO SCH (09:00)
[2024-09-18] MEDS ORDERED: CLOPIDOGREL 75 MG TAB PO SCH (09:00)
[2024-09-18] MEDS ORDERED: FUROSEMIDE 40 MG TAB PO SCH (09:00)
[2024-09-18] MEDS ORDERED: NON FORMULARY DRUG (Zinc [Zinc] 50 MG Tablet) PO SCH (09:00)
[2024-09-18] MEDS ORDERED: CHOLECALCIFEROL 25 MCG (1000 IU) TABLET PO SCH (09:00)
[2024-09-20] MEDS ORDERED: OZEMPIC SQ SCH (09:00)
== END 2024-09-17 16:35 | disposition home or self-care (01) ==
LOC: CATHCVL 09:04
PROVIDERS: ATTEND Internal Medicine
CPT/HCPCS: 37224; 75625; 75716; 85049

== ENCOUNTER → 2024-10-09 | Outpatient (CLI) | payer OTHER ==
--- NOTE | 2024-10-09 10:30 | US ---
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 with grayscale and color Doppler imaging FINDINGS: EXAM MEASUREMENTS: Abdominal Aorta: Proximal: 2.4 x 2.2cm Mid: 2.2 x 2.4cm Distal: 2.4 x 2.3cm Bifurcation: Right Iliac: 1.2 x 1.3cm Left Iliac: 1.2 x 1.3cm Difficult and limited study due to patient body habitus Limited visualized portions of aorta and iliacs appear wnl IMPRESSION: No evidence for aortic aneurysm. [facility], , 10/09/2024 10:28 AM
== END | disposition home or self-care (01) ==
LOC: RADUSWWP 09:04
PROVIDERS: ATTEND Internal Medicine
DX: I71.40 Abdominal aortic aneurysm, without rupture, unspecified (principal)
CPT/HCPCS: 76706

== ENCOUNTER 2024-10-18 10:06 | Day surgery (SDC) | payer OTHER ==
[~2024-10-18 10:06] MED LIST changes: -ALPRAZolam 0.5 MG TAB PO PRN
[2024-10-18] MEDS: IV FLUID CONTINUATION 1,000 ML IV ONE (10:25)
[2024-10-18] MEDS: EMPTY BAG 1 BAG with SODIUM CHLORIDE 0.9% 1,000 ML IV SCH (10:49)
[2024-10-18 10:57] VITALS: TEMP 97.2
[2024-10-18] MEDS: ASPIRIN 81 MG PO STA (11:00)
[2024-10-18 11:19] LABS: Basophils % (A) 1 %; Eosinophils # (A) 0.1 k/uL (0-0.7); Eosinophils % (A) 2 %; HCT 52.4 % (39.0-53.0); HGB 16.7 gm/dL (13.0-17.5); Hypochromasia Moderate; Lymphocytes # (A) 1.2 k/uL (1.0-4.8); Lymphocytes % (A) 20 %; MCH 26.7 pg (25.0-35.0); MCHC 31.8 g/dL (31.0-37.0); MCV 83.9 fL (80.0-100.0); Mean Platelet Volume 7.3; Monocytes # (A) 0.6 k/uL (0-1.0); Monocytes % (A) 9 %; Neutrophils # (A) 4.1 k/uL (1.3-7.7); Neutrophils % (A) 66 %; Platelet Count 132 k/uL (150-450); RBC 6.25 m/uL (4.30-5.90); RDW 15.4 % (11.5-15.5); WBC 6.2 k/uL (3.8-10.6)
[2024-10-18 11:34] LABS: African American GFR (CKD) >90 (>60 ml/min/1.73 sqM); Anion Gap 8 mmol/L; Blood Urea Nitrogen 17 mg/dL (9-20); Calcium 8.7 mg/dL (8.4-10.2); Carbon Dioxide 22 mmol/L (22-30); Chloride 110 mmol/L (98-107); Glucose 98 mg/dL (74-99); Non-African American GFR(CKD) >90 (>60 ml/min/1.73 sqM); Potassium 3.9 mmol/L (3.5-5.1); Sodium 140 mmol/L (137-145)
[2024-10-18] MEDS: fentaNYL (PF) 50 MCG/ML 2 ML AMP IVP ONE ×2 (12:14→12:17)
[2024-10-18] MEDS: MIDAZOLAM 2 MG/2 ML VIAL IVP ONE ×2 (12:14→12:17)
[2024-10-18] MEDS: LIDOCAINE 1% INJ 10MG/ML (20 ML MDV) SQ ONE ×2 (12:20→12:21)
[2024-10-18] MEDS: HEPARIN SODIUM 1,000 UN/ML (10ML VL) IVP ONE (12:32)
[2024-10-18] MEDS: HEPARIN SODIUM,PORCINE 10,000 UNIT in SODIUM CHLORIDE 0.9% 1,000 ML IRRIGATION ONE (12:41)
[2024-10-18] MEDS: HEPARIN SODIUM,PORCINE (1 ML) 2,500 UNIT in SODIUM CHLORIDE 0.9% 250 ML IRRIGATION ONE (12:42)
[2024-10-18] MEDS: IOPAMIDOL-250 100ML BTL INTRAARTER ONE (13:16)
--- NOTE | 2024-10-18 13:46 | IR ---
EXAMINATION TYPE: IR angio lower extremity LT DATE OF EXAM: 10/18/2024 1:35 PM COMPARISON: Pre Operative Images if available both CT/MRI or plain film CLINICAL INDICATION: Male, 64 years old with history of left leg pain, 17.1min fluoro, 73.3GYcm2; TECHNIQUE: IR angio lower extremity LT, multiple fluoroscopic images provided for procedure. Total fluoroscopy time: 17.1 seconds Total submitted images to PACS: [id number] DAP: 73.3 mGym2 Gycm2 uGym2 cGycm2 or equivalent. FINDINGS: IMPRESSION: 1. Report was generated for administrative purposes only. 2. Please see the operative/procedural note for further details. [facility], , 10/18/2024 1:44 PM
[2024-10-18] MEDS: ACETAMINOPHEN TAB 500 MG TAB PO STA (15:17)
[2024-10-18] MEDS: hydrALAZINE HCL 50 MG TAB PO SCH (16:00)
[2024-10-18] MEDS: SOTALOL 80 MG TAB PO SCH (16:00)
[2024-10-18 16:14] VITALS: RESP 16
[2024-10-18] MEDS: hydrALAZINE HCL 20 MG/ML 1 ML VIAL IVP STA (16:41)
[2024-10-18 17:27] VITALS: BP 153/74; PULSE 63
--- NOTE | 2024-10-19 22:10 | P.PCN ---
Description of Procedure: PROCEDURES PERFORMED: Left lower extremity angiography, attempted wiring of BAND SEWER left SFA, IVUS left SFA INDICATION: left SFA BAND SEWER, lan class 3 claudication CONSENT:I have discussed the risks, benefits and alternative therapies for the above-mentioned procedure and for both sedation/analgesia as well as necessary blood product administration, if indicated, as they pertain to this patient. The patient has indicated understanding and acceptance of the risks and procedures discussed. PROCEDURE: After the risks, benefits and alternatives of the above mentioned procedure explained in detail with the patient, informed consent was obtained. Patient was taken to the catheterization lab and prepped and draped in usual fashion. 1% lidocaine was used to anesthetize the right femoral area. A 6- [place] sheath was placed in the right femoral artery using modified Seldinger technique. A 5-[place] rim catheter was used to place a 0.035 stiff glide into the left profunda and then a destination sheath was placed in the left common iliac artery. IV heparin was given. A 0.035 stiff glide with a glide sheath was used to attempt crossing of the left SFA. The wire was advanced to the distal SFA however unable to advance into the true lumen. IVUS confirmed the wire was extra luminal. Given concern of dissection, no further attempts at wiring were made. A right femoral angiogram was performed and anatomoy was suitable for closure. A 6Fr Angioseal was placed with hemostasis achieved. The patient tolerated the procedure well. Patient was transported back to the post catheterization holding area in stable condition. Conscious Sedation: Patient was monitored under the direct supervision of vision of myself for conscious sedation using Versed and fentanyl for a total duration of 52 minutes Left lower extremity: Left common iliac artery: There is no significant stenosis. Left external iliac artery: There is no significant stenosis. Left internal iliac artery: There is no significant stenosis. Left common femoral artery: There is no significant stenosis. Left profunda: There is no significant stenosis. Left SFA: There is 100% left SFA stenosis. Left popliteal artery: There is no significant stenosis. Left tibioperoneal trunk: There is no significant stenosis. Left anterior tibial artery: There is 100% stenosis. Left posterior tibial artery: There is no significant stenosis. Left peroneal artery: There is no significant stenosis. FINAL IMPRESSION: 1. Peripheral arterial disease as described above including 100% left SFA and 100% left AT 2. Unsuccessful wiring of left SFA PLAN: 1. Aggressive risk factor modification per most recent ACC/AHA guidelines. 2. Follow-up in the office in 1-2 weeks.
== END 2024-10-18 17:22 | disposition home or self-care (01) ==
LOC: CATHCVL 10:06
PROVIDERS: ATTEND Internal Medicine
DX: I70.212 Atherosclerosis of native arteries of extremities with intermittent claudication, left leg (principal); I10 Essential (primary) hypertension; E78.5 Hyperlipidemia, unspecified; I48.19 Other persistent atrial fibrillation; I25.10 Atherosclerotic heart disease of native coronary artery without angina pectoris; Z95.5 Presence of coronary angioplasty implant and graft; Z79.02 Long term (current) use of antithrombotics/antiplatelets; Z79.01 Long term (current) use of anticoagulants; Z79.899 Other long term (current) drug therapy
CPT/HCPCS: 75710; 37252; 80048; 85025; 99152; 99153; C1769 ×5; C1760; C1894 ×2; C1753; J2250; J0360; J1644 ×3; J2003; J3010; Q9966

== ENCOUNTER → 2024-10-30 | Outpatient (CLI) | payer OTHER ==
--- NOTE | 2024-10-30 15:36 | CA ---
Transthoracic Echo Report Name: Werner Yu Age: 64 Gender: M : 1960 Exam Date: 10/30/2024 14:11 Exam Location: [facility] Ht (in): 70 Wt (lb): 248 Ordering Physician: Niko Barlow DO ([id number]) Attending/Referring Phys: Reinforcing Steel Machine Operator Clary Solis RDCS Procedure CPT: Indications: I10 Essential Hypertension Cardiac Hx: Technical Quality: Fair Contrast 1: Total Dose (mL): Contrast 2: Total Dose (mL): MEASUREMENTS (Male / Female) Normal Values 2D ECHO LV Diastolic Diameter PLAX 5.2 cm 4.2 - 5.9 / 3.9 - 5.3 cm LV Systolic Diameter PLAX 3.1 cm IVS Diastolic Thickness 1.3 cm 0.6 - 1.0 / 0.6 - 0.9 cm LVPW Diastolic Thickness 1.3 cm 0.6 - 1.0 / 0.6 - 0.9 cm LV Relative Wall Thickness 0.5 RV Internal Dim ED PLAX 1.8 cm LA Systolic Diameter LX 4.8 cm 3.0 - 4.0 / 2.7 - 3.8 cm LV Diastolic Volume MOD BP 94.5 cm??? 67 - 155 / 56 - 104 cm??? LV Systolic Volume MOD BP 26.5 cm??? - 58 / 19 - 49 cm??? LV Ejection Fraction MOD BP 72.0 % >= 55 % LV Cardiac Index MOD BP 1588.0 cm???/min???m??? LV Diastolic Volume MOD 4C 106.2 cm??? LV Systolic Volume MOD 4C 27.7 cm??? LV Ejection Fraction MOD 4C 74.0 % LV Cardiac Index MOD 4C 1834.8 cm???/min???m??? LV Diastolic Length 4C 8.4 cm LV Systolic Length 4C 6.4 cm LV Diastolic Volume MOD 2C 84.0 cm??? LV Systolic Volume MOD 2C 25.0 cm??? LV Ejection Fraction MOD 2C 70.2 % LV Cardiac Index MOD 2C 1377.3 cm???/min???m??? LV Diastolic Length 2C 8.5 cm LV Systolic Length 2C 6.3 cm LA Volume 71.5 cm??? 18 - 58 / 22 - 52 cm??? LA Volume Index 29.8 cm???/m??? 16 - 28 cm???/m??? M-MODE Aortic Root Diameter MM 2.8 cm LA Systolic Diameter MM 4.6 cm LA Ao Ratio MM 1.7 AV Cusp Separation MM 1.7 cm DOPPLER AV Peak Velocity 166.1 cm/s AV Peak Gradient 11.0 mmHg AV Mean Velocity 103.5 cm/s AV Mean Gradient 5.2 mmHg AV Velocity Time Integral 35.9 cm MV Area PHT 2.6 cm??? Mitral E Point Velocity 90.0 cm/s Mitral A Point Velocity 109.5 cm/s Mitral E to A Ratio 0.8 MV Deceleration Time 294.4 ms FINDINGS Left Ventricle Left ventricular ejection fraction is estimated at 55-60 %. Mildly increased septal wall thickness. Left ventricular cavity size normal. Normal left ventricular systolic function with no obvious regional wall motion abnormalities. Right Ventricle Normal right ventricular size and function. Unable to estimate the right ventricular systolic pressure. Right Atrium Mild right atrial dilatation. Left Atrium Moderately increased left atrial diameter. Mildly increased left atrial volume. Mildly increased left atrial area. Mitral Valve Structurally normal mitral valve. Trace to mild mitral regurgitation. No mitral stenosis. Aortic Valve Trileaflet aortic valve. No aortic valve stenosis or regurgitation. Thickened aortic valve without stenosis. Tricuspid Valve Structurally normal tricuspid valve. No tricuspid stenosis. Trace tricuspid regurgitation. Pulmonic Valve Structurally normal pulmonic valve. Trace pulmonic regurgitation. No pulmonic stenosis. Pericardium No pericardial or pleural effusion. Aorta Normal size aortic root and proximal ascending aorta. CONCLUSIONS Left ventricular ejection fraction 55-60% Mildly increased left ventricular wall thickness Mildly dilated left atrium Trace to mild mitral regurgitation Trace tricuspid regurgitation Previewed by: Dr. Niko Barlow DO (Electronically Signed) Final Date: 30 October 2024 15:35
== END | disposition home or self-care (01) ==
LOC: RADECHMAIN 14:08
PROVIDERS: ATTEND Internal Medicine
DX: I10 Essential (primary) hypertension (principal)
CPT/HCPCS: 93306

== ENCOUNTER 2025-05-17 10:00 | Emergency (ER) | payer OTHER, MEDICARE ==
[2025-05-17 10:30] VITALS: PULSE 54; TEMP 97.9
--- NOTE | 2025-05-17 11:08 | ED ---
General Adult HPI - General Chief complaint: Abdominal Pain Stated complaint: abd pain Time Seen by Provider: 05/17/25 10:31 Source: patient, RN notes reviewed Mode of arrival: ambulatory Limitations: no limitations - History of Present Illness Initial comments: 65-year-old male presents to the emergency department for evaluation of abdominal pain. He notes that this started 2 days ago. Is been constant since then. Denies any aggravating or alleviating factors. The pain is mostly in the left lower quadrant of the abdomen. He reports a prior appendectomy but no other abdominal surgeries. Denies fever, chills. Does admit to decreased bowel movements. Denies any urinary symptoms. - Related Data Home Medications Medication Instructions Recorded Confirmed amLODIPine [Norvasc] 10 mg PO DAILY 05/23/14 10/16/24 lisinopriL [Zestril] 20 mg PO TID 05/23/14 10/16/24 Potassium Chloride [Potassium 8 meq PO DAILY 11/17/18 10/16/24 Chloride ER] Furosemide [Lasix] 40 mg PO DAILY 11/18/18 10/18/24 Rivaroxaban [Xarelto] 20 mg PO DAILY 09/18/21 10/18/24 Sotalol [Betapace] 80 mg PO BID 09/18/21 10/16/24 hydrALAZINE HCL [Apresoline] 100 mg PO BID 09/18/21 10/16/24 Ascorbic Acid [Vitamin C] 1,000 mg PO DAILY 12/21/21 10/18/24 Atorvastatin Calcium [Lipitor] 80 mg PO HS 12/21/21 10/18/24 Cholecalciferol [Vitamin D3 (25 50 mcg PO DAILY 12/21/21 10/18/24 Mcg = 1000 Iu)] Omeprazole 20 mg PO HS 12/21/21 10/18/24 Zinc 50 mg PO DAILY 12/21/21 10/18/24 Empagliflozin [Jardiance] 25 mg PO DAILY 09/12/24 10/18/24 Fluticasone/Umeclidin/Vilanter 1 inh INHALATION DIRECTED 09/12/24 10/16/24 [Trelegy Ellipta 200-62.5-25] Semaglutide [Ozempic] 0.5 mg SQ Q7D 10/16/24 10/18/24 Previous Rx's Medication Instructions Recorded Clopidogrel [Plavix] 75 mg PO DAILY #90 tablet 09/17/24 Amoxic-Pot Clav 875-125Mg 1 tab PO Q12HR #20 tab 05/17/25 [Augmentin 875-125] Allergies Allergy/AdvReac Type Severity Reaction Status Date / Time No Known Allergies Allergy Verified 05/17/25 10:29 Review of Systems ROS Statement: Those systems with pertinent positive or pertinent negative responses have been documented in the HPI. ROS Other: All systems not noted in ROS Statement are negative. Past Medical History Past Medical History: Atrial Fibrillation, Deep Vein Thrombosis (DVT), GERD/Reflux, Hyperlipidemia, Hypertension, Osteoarthritis (OA), Pneumonia Additional Past Medical History / Comment(s): head injury as 4 yr old. History of Any Multi-Drug Resistant Organisms: None Reported Past Surgical History: Appendectomy, Heart Catheterization With Stent Additional Past Surgical History / Comment(s): back cyst removed, colonoscopy , PTCA WITH STENT, r shoulder, left knee Past Anesthesia/Blood Transfusion Reactions: No Reported Reaction Additional Past Anesthesia/Blood Transfusion Reaction / Comment(s): Pt has never recieved blood. Date of Last Stent Placement:: Past Psychological History: No Psychological Hx Reported Smoking Status: Never smoker Past Alcohol Use History: None Reported, Occasional Past Drug Use History: None Reported - Past Family History Sister(s) Family Medical History: Cancer Brother(s) Family Medical History: Cancer Father Family Medical History: Coronary Artery Disease (CAD) Additional Family Medical History / Comment(s): Father had a heart transplant. He in his mid 60's. Mother Family Medical History: Cancer, Myocardial Infarction ([place]) Additional Family Medical History / Comment(s): LUNG CANCER General Exam Limitations: no limitations General appearance: alert, in no apparent distress Head exam: Present: atraumatic, normocephalic, normal inspection Eye exam: Present: normal appearance, PERRL, EOMI. Absent: scleral icterus, conjunctival injection, periorbital swelling ENT exam: Present: normal exam, mucous membranes moist Neck exam: Present: normal inspection. Absent: tenderness, meningismus, lymphadenopathy Respiratory exam: Present: normal lung sounds bilaterally. Absent: respiratory distress, wheezes, rales, rhonchi, stridor Cardiovascular Exam: Present: normal rhythm, bradycardia, normal heart sounds. Absent: systolic murmur, diastolic murmur, rubs, gallop, clicks GI/Abdominal exam: Present: soft, tenderness (LLQ ), normal bowel sounds. Absent: distended, guarding, rebound, rigid Extremities exam: Present: normal inspection, full ROM, normal capillary refill. Absent: tenderness, pedal edema, joint swelling, calf tenderness Back exam: Present: normal inspection Neurological exam: Present: alert, oriented X3 Psychiatric exam: Present: normal affect, normal mood Skin exam: Present: warm, dry, intact, normal color. Absent: rash Course Vital Signs 05/17/25 05/17/25 10:25 13:02 Temperature 97.9 F Pulse Rate 54 L 54 L Respiratory 18 16 Rate Blood Pressure 179/79 146/75 O2 Sat by Pulse 95 94 L Oximetry Medical Decision Making - Medical Decision Making Was pt. sent in by a medical professional or institution (ETTA Swartz, DIESEL TECHNOLOGY INSTRUCTOR, urgent care, hospital, or jail...) When possible be specific @ -[No] Did you speak to anyone other than the patient for history (EMS, parent, family, police, friend...)? What history was obtained from this source @ -[No] Did you review nursing and triage notes (agree or disagree)? Why? @ -[I reviewed and agree with nursing and triage notes] Were old charts reviewed (outside hosp., previous admission, EMS record, old EK G, old radiological studies, urgent care reports/EKG's, jail records)? Report findings @ -[No old charts were reviewed] Differential Diagnosis (chest pain, altered mental status, abdominal pain women, abdominal pain men, vaginal bleeding, weakness, fever, dyspnea, syncope, headache, dizziness, GI bleed, back pain, seizure, CVA, palpatations, mental health, musculoskeletal)? @ -Differential Abdominal Pain Men: Appendicitis, cholecystitis, diverticulosis, ischemic bowel, pancreatitis, hepatitis, UTI, gastroenteritis, AAA, incarcerated hernia, bowel obstruction, constipation, inflammatory bowel, hepatitis, peptic ulcer disease, splenic infarction, perforated viscus, testicular torsion, this is not meant to be an all-inclusive list EKG interpreted by me (3pts min.). @ -None X-rays interpreted by me (1pt min.). @ -[None done] CT interpreted by me (1pt min.). @ -[None done] U/S interpreted by me (1pt. min.). @ -[None done] What testing was considered but not performed or refused? (CT, X-rays, U/S, labs)? Why? @ -[None] What meds were considered but not given or refused? Why? @ -[None] Did you discuss the management of the patient with other professionals (professionals i.e. DrAndre, PA, DIESEL TECHNOLOGY INSTRUCTOR, lab, RT, psych nurse, social worker aide, re recording mixer, teacher, booking officer, manager of case)? Give summary @ -[No] Was smoking cessation discussed for >3mins.? @ -[No] Was critical care preformed (if so, how long)? @ -[No] Were there social determinants of health that impacted care today? How? (Homelessness, low income, unemployed, alcoholism, drug addiction, transportation, low edu. Level, literacy, decrease access to med. care, [facility], rehab)? @ -[No] Was there de-escalation of care discussed even if they declined (Discuss DNR or withdrawal of care, Hospice)? DNR status @ -[No] What co-morbidities impacted this encounter? (DM, HTN, Smoking, COPD, CAD, Cancer, CVA, ARF, Chemo, Hep., AIDS, mental health diagnosis, sleep apnea, morbid obesity)? @ -[None] Was patient admitted / discharged? Hospital course, mention meds given and route, prescriptions, significant lab abnormalities, going to OR and other pertinent info. @ -[hospital course] Undiagnosed new problem with uncertain prognosis? @ -[No] Drug Therapy requiring intensive monitoring for toxicity (Heparin, Nitro, Insulin, Cardizem)? @ -[No] Were any procedures done? @ -[No] Diagnosis/symptom? @ -[default] Acute, or Chronic, or Acute on Chronic? @ -[default] Uncomplicated (without systemic symptoms) or Complicated (systemic symptoms)? @ -[default] Side effects of treatment? @ -[No] Exacerbation, Progression, or Severe Exacerbation? @ -[No] Poses a threat to life or bodily function? How? (Chest pain, [place], [place], pneumonia, PE, COPD, DKA, ARF, appy, cholecystitis, CVA, Diverticulitis, Homicidal, Suicidal, threat to staff... and all critical care pts) @ -[No] - Lab Data Result diagrams: 05/17/25 11:17 05/17/25 11:17 Lab Results 05/17/25 05/17/25 05/17/25 Range/Units 11:17 11:17 13:07 WBC 7.95 (4.50-10.00) 10*3/uL RBC 6.48 H (4.40-5.60) 10*6/uL Hgb 16.8 (13.0-17.0) g/dL Hct 51.1 H (39.6-50.0) % MCV 78.9 L (80.0-97.0) fL MCH 25.9 L (27.0-32.0) pg MCHC 32.9 (32.0-37.0) g/dL Plt Count 148 (140-440) 10*3/uL MPV 9.4 L (9.5-12.2) fL Immature Gran % (Auto) 0.1 % Neutrophils % 71.6 % Lymphocytes % 13.2 % Monocytes % 12.8 % Eosinophils % 1.8 % Basophils % 0.5 % Immature Gran # 0.01 (0.00-0.04) 10*3/uL Neutrophils # 5.69 (1.80-7.70) 10*3/uL Lymphocytes # 1.05 (0.90-5.00) 10*3/uL Monocytes # 1.02 H (0.20-1.00) 10*3/uL Eosinophils # 0.14 (0.04-0.35) 10*3/uL Basophils # 0.04 (0.00-0.10) 10*3/uL D-Dimer 0.24 (<0.60) mg/L FEU Sodium 141 (137-145) mmol/L Potassium 4.5 (3.5-5.1) mmol/L Chloride 107 (98-107) mmol/L Carbon Dioxide 23 (22-30) mmol/L Anion Gap 11 mmol/L BUN 19 (9-20) mg/dL Creatinine 0.95 (0.66-1.25) mg/dL Est GFR (CKD-EPI)AfAm >90 (>60 ml/min/1.73 sqM) Est GFR (CKD-EPI)NonAf 84 (>60 ml/min/1.73 sqM) Glucose 159 H (74-99) mg/dL Calcium 8.6 (8.4-10.2) mg/dL Total Bilirubin 1.0 (0.2-1.3) mg/dL AST 36 (17-59) U/L ALT 31 (4-49) U/L Alkaline Phosphatase 113 (38-126) U/L Total Protein 7.7 (6.3-8.2) g/dL Albumin 4.2 (3.5-5.0) g/dL Amylase 45 (30-110) U/L Lipase 68 (23-300) U/L Disposition Clinical Impression: Diverticulitis Disposition: HOME SELF-CARE Condition: Stable Instructions (If sedation given, give patient instructions): Diverticulitis (ED) Additional Instructions: Please cigar packer and picker your antibiotics and take to completion. Follow-up with your primary care provider. Return to the emergency department for new or worsening symptoms. Prescriptions: Amoxic-Pot Clav 875-125Mg [Augmentin 875-125] 1 tab PO Q12HR #20 tab Is patient prescribed a controlled substance at d/c from ED?: No Referrals: Sang Kaur DO [Primary Care Provider] - 1-2 days
[2025-05-17 11:25] LABS: Basophils # (A) 0.04 10*3/uL (0.00-0.10); Basophils % (A) 0.5 %; Eosinophils # (A) 0.14 10*3/uL (0.04-0.35); Eosinophils % (A) 1.8 %; HCT 51.1 % (39.6-50.0); HGB 16.8 g/dL (13.0-17.0); Lymphocytes # (A) 1.05 10*3/uL (0.90-5.00); Lymphocytes % (A) 13.2 %; MCH 25.9 pg (27.0-32.0); MCHC 32.9 g/dL (32.0-37.0); MCV 78.9 fL (80.0-97.0); Mean Platelet Volume 9.4 fL (9.5-12.2); Monocytes # (A) 1.02 10*3/uL (0.20-1.00); Monocytes % (A) 12.8 %; Neutrophils # (A) 5.69 10*3/uL (1.80-7.70); Neutrophils % (A) 71.6 %; Platelet Count 148 10*3/uL (140-440); RBC 6.48 10*6/uL (4.40-5.60); RDW 15.9 % (11.5-14.5); WBC 7.95 10*3/uL (4.50-10.00)
[2025-05-17 11:44] LABS: ALT 31 U/L (4-49); African American GFR (CKD) >90 (>60 ml/min/1.73 sqM); Amylase 45 U/L (30-110); Anion Gap 11 mmol/L; Blood Urea Nitrogen 19 mg/dL (9-20); Calcium 8.6 mg/dL (8.4-10.2); Carbon Dioxide 23 mmol/L (22-30); Chloride 107 mmol/L (98-107); Glucose 159 mg/dL (74-99); Lipase 68 U/L (23-300); Non-African American GFR(CKD) 84 (>60 ml/min/1.73 sqM); Sodium 141 mmol/L (137-145)
[2025-05-17 11:47] LABS: AST 36 U/L (17-59); Alkaline Phosphatase 113 U/L (38-126); Potassium 4.5 mmol/L (3.5-5.1); Total Protein 7.7 g/dL (6.3-8.2)
[2025-05-17 11:48] LABS: Albumin 4.2 g/dL (3.5-5.0)
--- NOTE | 2025-05-17 12:38 | CT ---
EXAMINATION TYPE: CT abdomen pelvis w con DATE OF EXAM: 05/17/2025 12:15 PM COMPARISON: None CLINICAL INDICATION: Male, 65 years old with history of LLQ abd pain; LLQ abdominal pain. TECHNIQUE: Axial CT abdomen pelvis w con;Sagittal and coronal reformats were created on a separate w orkstation. Contrast used:100 ml mL of Isovue 300 with IV Contrast, (none if empty) Oral contrast used: without Oral Contrast (none if empty) CT DLP: 2449 mGycm, Automated exposure control for dose reduction was used. FINDINGS: LOWER CHEST: Masslike opacity in the left lung base measuring 33 x 27 mm. Atelectasis along the minor fissure. Severe coronary artery atherosclerosis. ABDOMEN LIVER: Unremarkable GALLBLADDER AND BILE DUCTS: Unremarkable. PANCREAS: Unremarkable. SPLEEN: Unremarkable. ADRENAL GLANDS: Unremarkable. KIDNEYS AND URETERS: No evidence of hydronephrosis or obstructing renal calculus. The ureters are unr emarkable. Simple appearing subcentimeter left renal cortical cyst. No follow-up recommended. PELVIS BLADDER: No evidence for wall thickening or mass given limitations of exam. REPRODUCTIVE: Unremarkable. ABDOMEN & PELVIS STOMACH AND BOWEL: There are colonic diverticula present, one of which has adjacent fat stranding deandra nges. No organizing fluid collection or evidence of pneumoperitoneum. No evidence of bowel obstructio n. PERITONEUM/RETROPERITONEUM: No evidence of pneumoperitoneum or free fluid. VASCULATURE: No evidence of aortic aneurysm. MUSCULOSKELETAL: No acute osseous abnormalities LYMPH NODES: No gross evidence for lymphadenopathy. SOFT TISSUE/ABDOMINAL WALL: Fat-containing buccal hernia. IMPRESSION: 1. Acute uncomplicated sigmoid:/Ascending colon diverticulitis. No organizing fluid collection or fr ee air. 2. Left lower lower masslike opacity along the pleura concerning for malignancy further workup with PET/CTs recommended. Small nodule may been here on prior in 2009. Alternatively given its wedge-shape d correlate with d-dimer for possible pulmonary infarct in setting of pulmonary embolus. 3. Severe coronary artery atherosclerosis. [facility], , 05/17/2025 12:35 PM
[2025-05-17 13:03] VITALS: BP 146/75; RESP 16
[2025-05-17] MEDS: AMOXIC-POT CLAV 875-125MG 1 EACH TAB PO STA (14:31)
== END 2025-05-17 14:36 | disposition home or self-care (01) ==
LOC: EC 10:00
DX: K57.32 Diverticulitis of large intestine without perforation or abscess without bleeding (principal)
CPT/HCPCS: 36415; 85379; 80053; 82150; 83690; 85025; 74177; 99284; Q9967

== ENCOUNTER 2025-06-06 16:20 | Emergency (ER) | payer MEDICARE, OTHER ==
[2025-06-06 16:30] VITALS: RESP 20
--- NOTE | 2025-06-06 16:53 | ED ---
Wound/Laceration HPI - General Chief Complaint: Wound/Laceration Stated Complaint: L Leg Laceration Time Seen by Provider: 06/06/25 16:38 Source: patient, RN notes reviewed Mode of arrival: ambulatory Limitations: no limitations - History of Present Illness Initial Comments: 65-year-old male presenting to the emergency department for complaints of a lace ration to the left medial ankle just inferior to the medial malleolus. He states that he was using a circular saw to cut a piece of metal that was on the ground when the saw kicked back hitting him in the ankle. He states that he attempted to apply pressure at home however the bleeding has persisted. Patient is on Xarelto. Unaware of his last tetanus vaccine was. - Related Data Home Medications Medication Instructions Recorded Confirmed amLODIPine [Norvasc] 10 mg PO DAILY 05/23/14 10/16/24 lisinopriL [Zestril] 20 mg PO TID 05/23/14 10/16/24 Potassium Chloride [Potassium 8 meq PO DAILY 11/17/18 10/16/24 Chloride ER] Furosemide [Lasix] 40 mg PO DAILY 11/18/18 10/18/24 Rivaroxaban [Xarelto] 20 mg PO DAILY 09/18/21 10/18/24 Sotalol [Betapace] 80 mg PO BID 09/18/21 10/16/24 hydrALAZINE HCL [Apresoline] 100 mg PO BID 09/18/21 10/16/24 Ascorbic Acid [Vitamin C] 1,000 mg PO DAILY 12/21/21 10/18/24 Atorvastatin Calcium [Lipitor] 80 mg PO HS 12/21/21 10/18/24 Cholecalciferol [Vitamin D3 (25 50 mcg PO DAILY 12/21/21 10/18/24 Mcg = 1000 Iu)] Omeprazole 20 mg PO HS 12/21/21 10/18/24 Zinc 50 mg PO DAILY 12/21/21 10/18/24 Empagliflozin [Jardiance] 25 mg PO DAILY 09/12/24 10/18/24 Fluticasone/Umeclidin/Vilanter 1 inh INHALATION DIRECTED 09/12/24 10/16/24 [Trelegy Ellipta 200-62.5-25] Semaglutide [Ozempic] 0.5 mg SQ Q7D 10/16/24 10/18/24 Previous Rx's Medication Instructions Recorded Clopidogrel [Plavix] 75 mg PO DAILY #90 tablet 09/17/24 Amoxic-Pot Clav 875-125Mg 1 tab PO Q12HR #20 tab 05/17/25 [Augmentin 875-125] Allergies Allergy/AdvReac Type Severity Reaction Status Date / Time No Known Allergies Allergy Verified 05/17/25 10:29 Review of Systems ROS Statement: Those systems with pertinent positive or pertinent negative responses have been documented in the HPI. ROS Other: All systems not noted in ROS Statement are negative. Past Medical History Past Medical History: Atrial Fibrillation, Deep Vein Thrombosis (DVT), GERD/Reflux, Hyperlipidemia, Hypertension, Osteoarthritis (OA), Pneumonia Additional Past Medical History / Comment(s): head injury as 4 yr old. History of Any Multi-Drug Resistant Organisms: None Reported Past Surgical History: Appendectomy, Heart Catheterization With Stent Additional Past Surgical History / Comment(s): back cyst removed, colonoscopy , PTCA WITH STENT, r shoulder, left knee Past Anesthesia/Blood Transfusion Reactions: No Reported Reaction Additional Past Anesthesia/Blood Transfusion Reaction / Comment(s): Pt has never recieved blood. Date of Last Stent Placement:: Past Psychological History: No Psychological Hx Reported Smoking Status: Never smoker Past Alcohol Use History: None Reported, Occasional Past Drug Use History: None Reported - Past Family History Sister(s) Family Medical History: Cancer Brother(s) Family Medical History: Cancer Father Family Medical History: Coronary Artery Disease (CAD) Additional Family Medical History / Comment(s): Father had a heart transplant. He in his mid 60's. Mother Family Medical History: Cancer, Myocardial Infarction ([place]) Additional Family Medical History / Comment(s): LUNG CANCER General Exam Limitations: no limitations Neck exam: Present: normal inspection. Absent: tenderness, meningismus, lymphadenopathy Respiratory exam: Present: normal lung sounds bilaterally. Absent: respiratory distress, wheezes, rales, rhonchi, stridor Cardiovascular Exam: Present: regular rate, normal rhythm, normal heart sounds. Absent: systolic murmur, diastolic murmur, rubs, gallop, clicks GI/Abdominal exam: Present: soft, normal bowel sounds. Absent: distended, tenderness, guarding, rebound, rigid Left Foot/Toe exam: Present: laceration Neurovascular tendon exam: Present: no vascular compromise Back exam: Present: normal inspection Course Vital Signs 06/06/25 06/06/25 16:23 18:30 Temperature 97 F L 98.0 F Pulse Rate 54 L 60 Respiratory 20 20 Rate Blood Pressure 164/84 156/80 O2 Sat by Pulse 96 98 Oximetry Procedures - Laceration Laceration #1 Consent Obtained: verbal consent Indication: laceration Site: lower extremity Size (cm): 4 Description: linear Depth: simple, single layer Anesthesia Technique: local infiltration Amount (mls): 4 Pre-repair: wound explored Type of Sutures: nylon Size of Sutures: 3-0 Number of Sutures: 5 Technique: simple, interrupted Patient Tolerated Procedure: well, no complications Medical Decision Making - Medical Decision Making Was pt. sent in by a medical professional or institution (Dr. PA, OFFSET PRESS OPERATOR HELPER, urgent care, hospital, or senior living...) When possible be specific @ -No Did you speak to anyone other than the patient for history (EMS, parent, family, police, friend...)? What history was obtained from this source @ -No Did you review nursing and triage notes (agree or disagree)? Why? @ -I reviewed and agree with nursing and triage notes Were old charts reviewed (outside hosp., previous admission, EMS record, old EKG, old radiological studies, urgent care reports/EKG's, senior living records)? Report findings @ -No old charts were reviewed Differential Diagnosis (chest pain, altered mental status, abdominal pain women, abdominal pain men, vaginal bleeding, weakness, fever, dyspnea, syncope, headache, dizziness, GI bleed, back pain, seizure, CVA, palpatations, mental health, musculoskeletal)? @ -Laceration, tendon injury, skin avulsion, this list is not all inclusive EKG interpreted by me (3pts min.). @ -None X-rays interpreted by me (1pt min.). @ -None done CT interpreted by me (1pt min.). @ -None done U/S interpreted by me (1pt. min.). @ -None done What testing was considered but not performed or refused? (CT, X-rays, U/S, labs)? Why? @ -None What meds were considered but not given or refused? Why? @ -None Did you discuss the management of the patient with other professionals (professionals i.e. , PA, OFFSET PRESS OPERATOR HELPER, lab, RT, psych nurse, social security specialist, physician assistant surgery, teacher, customs officer, case technician)? Give summary @ -No Was smoking cessation discussed for >3mins.? @ -No Was critical care preformed (if so, how long)? @ -No Were there social determinants of health that impacted care today? How? (Homelessness, low income, unemployed, alcoholism, drug addiction, transportation, low edu. Level, literacy, decrease access to med. care, halfway, rehab)? @ -No Was there de-escalation of care discussed even if they declined (Discuss DNR or withdrawal of care, Hospice)? DNR status @ -No What co-morbidities impacted this encounter? (DM, HTN, Smoking, COPD, CAD, Cancer, CVA, ARF, Chemo, Hep., AIDS, mental health diagnosis, sleep apnea, morbid obesity)? @ -None Was patient admitted / discharged? Hospital course, mention meds given and route, prescriptions, significant lab abnormalities, going to OR and other pertinent info. @ -Discharge. 65-year-old male presenting to the emergency department for complaints of a laceration to the left medial ankle that is approximately 4 cm. Patient is up-to-date on tetanus vaccine. Area is cleansed sterile water. Local numbing medication with lidocaine. 4 simple interrupted sutures were placed with 3-0 nylon. Suture care discussed at bedside. Stable for discharge. Case discussed with Dr. Odell Undiagnosed new problem with uncertain prognosis? @ -No Drug Therapy requiring intensive monitoring for toxicity (Heparin, Nitro, Insulin, Cardizem)? @ -No Were any procedures done? @ -suture, see procedure note Diagnosis/symptom? @ -laceration Acute, or Chronic, or Acute on Chronic? @ -acute (without systemic symptoms) or Complicated (systemic symptoms)? @ -uncomplicated Side effects of treatment? @ -No Exacerbation, Progression, or Severe Exacerbation? @ -No Poses a threat to life or bodily function? How? (Chest pain, [place], [place], pneumonia, PE, COPD, DKA, ARF, appy, cholecystitis, CVA, Diverticulitis, Homicidal, Suicidal, threat to staff... and all critical care pts) @ -No Disposition Clinical Impression: Laceration Disposition: HOME SELF-CARE Condition: Good Instructions (If sedation given, give patient instructions): Care For Your Stitches (ED) Additional Instructions: Please return to the Emergency Department if symptoms worsen or any other concerns. Please report back to the emergency department your primary care provider in approximately 7 to 10 days for suture removal. Is patient prescribed a controlled substance at d/c from ED?: No Referrals: Sang Kaur DO [Primary Care Provider] - 1-2 days
[2025-06-06] MEDS: DIPH,PERTUS(ACELL)TETVAC-LF 0.5 ML VIAL IM ONE (17:03)
[2025-06-06] MEDS: LIDOCAINE 1% INJ 10MG/ML (20 ML MDV) SQ ONE (17:16)
[2025-06-06 18:31] VITALS: BP 156/80; PULSE 60; TEMP 98
== END 2025-06-06 18:31 | disposition home or self-care (01) ==
LOC: EC 16:20
DX: S91.012A Laceration without foreign body, left ankle, initial encounter (principal); Z23 Encounter for immunization; W31.2XXA Contact with powered woodworking and forming machines, initial encounter
CPT/HCPCS: 90715; 99282; 90471; 12002; J2003

== ENCOUNTER → 2025-06-13 | Outpatient (CLI) | payer OTHER ==
[2025-06-13 10:24] LABS: African American GFR (CKD) 85 (>60 ml/min/1.73 sqM); Blood Urea Nitrogen 20 mg/dL (9-20); Non-African American GFR(CKD) 73 (>60 ml/min/1.73 sqM)
--- NOTE | 2025-06-13 15:19 | CT ---
EXAMINATION TYPE: CT chest w con DATE OF EXAM: 06/13/2025 11:12 AM COMPARISON: Radiograph 06/06/2025 CLINICAL INDICATION: Male, 65 years old with history of R91.8 SPN; PHH, spot on lung TECHNIQUE: CT of the chest after IV contrast administration. Coronal and sagittal reconstruction perf ormed. Contrast used:100 mL of Isovue [address] DLP: 682 mGycm, Automated exposure control for dose reduction was used. FINDINGS: The heart is normal size without pericardial effusion. Extensive LAD and lesser degree of RCA and cir cumflex coronary calcifications are present. Mild atherosclerotic arch calcifications with conventional arch vessel branching anatomy. Borderline caliber main right and left pulmonary arteries measuring up to 2.5 cm may reflect underlyi ng pulmonary hypertension. A few calcified lower right paratracheal lymph nodes suggest sequela of prior granulomatous disease. No thoracic lymphadenopathy by CT size criteria. Upper posterior midline cutaneous/subcutaneous lesion measuring 1 cm, probably sebaceous cyst or scar ring. There is moderate emphysematous change. Strandy scarring in the mid and lower lungs. * There are nodular appearance to thickening along the medial minor fissure measuring 1.3 cm, axial image 34 should be reassessed at follow-up. * A few 4 mm pulmonary nodules right lower lobe, axial image 37 and 43. * 5 mm subpleural pulmonary nodule right lower lobe, axial image 48. * A couple 4 mm left lower lobe pulmonary nodules, axial image 46. * There is a larger masslike area of consolidation in the subpleural lateral left lower lobe measuri ng 4.5 cm. Surrounding groundglass density. No other consolidation or pleural effusion. Tiny hiatal hernia. Visualized upper abdomen otherwise shows no gross abnormality. Bones: Anterior endplate spondylosis and mild degenerative disc disease lower thoracic spine. IMPRESSION: 1. COPD with moderate emphysema and possible pulmonary hypertension. 2. Scattered pulmonary nodules measuring up to 1.3 cm. Three-month follow-up CT to reassess. 3. Larger masslike area of subpleural consolidation left lower lobe measuring 4.5 cm. Consider pneumo flower, early neoplasm, inflammatory focus such as SEWER CLEANER, or pulmonary infarct. If pulmonary infarct is a clinical possibility, consider patient's follow-up with a PE CT to exclude any underlying pulmonary e mboli. 4. Three-vessel coronary artery calcifications. Follow up recommendations for incidental pulmonary nodules, if there are any, are per [employer] [employer] or [employer] [employer]. [facility], , 06/13/2025 3:16 PM
== END | disposition home or self-care (01) ==
LOC: RADCTMAIN 09:43
PROVIDERS: ATTEND Internal Medicine Critical Care Medicine
DX: R91.8 Other nonspecific abnormal finding of lung field (principal); J43.9 Emphysema, unspecified; I25.10 Atherosclerotic heart disease of native coronary artery without angina pectoris
CPT/HCPCS: 82565; 84520; 71260; 36415; Q9967

== ENCOUNTER 2025-06-17 09:43 | Day surgery (SDC) | payer OTHER ==
[2025-06-13 15:48] VITALS: BMI 37.3
[2025-06-17 11:35] VITALS: TEMP 97.1
[2025-06-17] MEDS: IV FLUID CONTINUATION 1,000 ML IV ONE (11:42)
[2025-06-17] MEDS: LACTATED RINGERS 1,000 ML IV SCH (11:48)
[2025-06-17] MEDS ORDERED: PROPOFOL 10 MG/ML 20 ML VIAL IV ONE (11:54)
--- NOTE | 2025-06-17 12:19 | P.PCN ---
Date of Procedure: 06/17/25 Preoperative Diagnosis: Screening Postoperative Diagnosis: Multiple colon polyps Anal polyp Procedure(s) Performed: Colonoscopy with hot snare polypectomy Anesthesia: MAC Surgeon: Kirstie Waters Pathology: other (Polyps of the descending colon, transverse colon, sigmoid colon and anus) Condition: stable Disposition: same day Indications for Procedure: 65-year-old male presents today for screening colonoscopy. He states his last colonoscopy was about 25 years ago and he did have polyps at that time. Occasional blood in his stool. Denies any family history of colon cancer. Risks, benefits and alternatives were provided to the patient. All questions answered prior to attending the endoscopy suite. Operative Findings: Polyps of the descending, transverse, sigmoid colon and anus Description of Procedure: The patient was brought to the endoscopy suite and placed in left lateral decubitus position and adequate sedation was achieved using conscious sedation. Digital rectal exam was performed and mild internal hemorrhoids were palpated. An endoscope was then placed in the rectum and advanced to the cecum as identified by landmarks including the appendiceal orifice and the ileocecal valve. The prep was good. The colonoscope was then slowly withdrawn, examining for any mucosal abnormalities. The cecum, ascending, transverse, descending and sigmoid colon were visualized adequately. There were no large neoplastic lesions noted throughout the colon. Multiple polyps were encountered. The first noted in the descending colon. This was removed with hot snare polypectomy. Hemostasis maintained. Second polyp was noted in the transverse colon this was also removed with hot snare polypectomy. Hemostasis maintained. 2 polyps were noted in the sigmoid colon these were removed with forcep polypectomy. Hemostasis maintained. Final polyp was noted at the anus and this was removed with hot snare polypectomy. Hemostasis was maintained. Retroflexion was performed in the rectum and internal. Excess air was removed, the colonoscope withdrawn and the procedure terminated. The patient was then transferred to the recovery unit in stable condition. Repeat colonoscopy should be performed in 3 years.
[2025-06-17 12:22] VITALS: PULSE 50
[2025-06-17 12:49] VITALS: BP 158/78; RESP 17
== END 2025-06-17 13:06 | disposition home or self-care (01) ==
LOC: ORWHC2ENDO 09:43
PROVIDERS: ATTEND Surgery
DX: Z12.11 Encounter for screening for malignant neoplasm of colon (principal); D12.4 Benign neoplasm of descending colon; K63.5 Polyp of colon; D12.9 Benign neoplasm of anus and anal canal; K64.8 Other hemorrhoids; I48.91 Unspecified atrial fibrillation; I10 Essential (primary) hypertension; I25.10 Atherosclerotic heart disease of native coronary artery without angina pectoris; Z95.5 Presence of coronary angioplasty implant and graft; E78.5 Hyperlipidemia, unspecified; K21.9 Gastro-esophageal reflux disease without esophagitis; M19.90 Unspecified osteoarthritis, unspecified site; Z79.01 Long term (current) use of anticoagulants; Z79.84 Long term (current) use of oral hypoglycemic drugs; Z79.899 Other long term (current) drug therapy; Z86.0100 Personal history of colon polyps, unspecified; Z86.718 Personal history of other venous thrombosis and embolism
CPT/HCPCS: 88305; 45380; 45385; J2704

== ENCOUNTER 2025-06-19 07:39 | Emergency (ER) | payer OTHER ==
[2025-06-19 07:44] VITALS: PULSE 75
[2025-06-19 08:45] LABS: Basophils # (A) 0.04 10*3/uL (0.00-0.10); Basophils % (A) 0.7 %; Eosinophils # (A) 0.10 10*3/uL (0.04-0.35); Eosinophils % (A) 1.7 %; HCT 49.7 % (39.6-50.0); HGB 16.0 g/dL (13.0-17.0); Lymphocytes # (A) 0.95 10*3/uL (0.90-5.00); Lymphocytes % (A) 16.5 %; MCH 25.2 pg (27.0-32.0); MCHC 32.2 g/dL (32.0-37.0); MCV 78.4 fL (80.0-97.0); Monocytes # (A) 0.74 10*3/uL (0.20-1.00); Monocytes % (A) 12.8 %; Neutrophils # (A) 3.92 10*3/uL (1.80-7.70); Neutrophils % (A) 68.0 %; Platelet Count 185 10*3/uL (140-440); RBC 6.34 10*6/uL (4.40-5.60); RDW 15.7 % (11.5-14.5); WBC 5.77 10*3/uL (4.50-10.00)
[2025-06-19 09:02] LABS: ALT 39 U/L (4-49); AST 37 U/L (17-59); African American GFR (CKD) >90 (>60 ml/min/1.73 sqM); Albumin 4.0 g/dL (3.5-5.0); Alkaline Phosphatase 117 U/L (38-126); Anion Gap 11 mmol/L; Blood Urea Nitrogen 15 mg/dL (9-20); Calcium 9.1 mg/dL (8.4-10.2); Carbon Dioxide 21 mmol/L (22-30); Chloride 108 mmol/L (98-107); Glucose 132 mg/dL (74-99); Magnesium 2.0 mg/dL (1.6-2.3); Non-African American GFR(CKD) >90 (>60 ml/min/1.73 sqM); Potassium 4.2 mmol/L (3.5-5.1); Sodium 140 mmol/L (137-145); Total Protein 7.3 g/dL (6.3-8.2)
--- NOTE | 2025-06-19 09:54 | ED ---
GI Bleed HPI - General Chief complaint: GI Bleed Stated complaint: Blood in stool Time Seen by Provider: 06/19/25 07:46 Source: patient Mode of arrival: ambulatory Limitations: no limitations - History of Present Illness Initial comments: 65-year-old male presents to the emergency department with bright red blood per rectum. States that the bleeding started yesterday around 5 PM. Patient had a colonoscopy on June 17. States that he had a normal bowel movement after the procedure. States that since last night he has had several episodes of bright red blood. Patient does take Plavix and Xarelto. He was told to start these medications up after his colonoscopy. He did have biopsies performed. Procedure was done by Dr. Waters.. No dark or tarry stools. No vomiting. No other alleviating, precipitating modifying factors - Related Data Home Medications Medication Instructions Recorded Confirmed amLODIPine [Norvasc] 10 mg PO DAILY 05/23/14 06/17/25 lisinopriL [Zestril] 20 mg PO TID 05/23/14 06/17/25 Potassium Chloride [Potassium 8 meq PO DAILY 11/17/18 06/17/25 Chloride ER] Furosemide [Lasix] 40 mg PO DAILY 11/18/18 06/17/25 Rivaroxaban [Xarelto] 20 mg PO DAILY 09/18/21 06/17/25 Sotalol [Betapace] 80 mg PO DAILY 09/18/21 06/17/25 hydrALAZINE HCL [Apresoline] 100 mg PO BID 09/18/21 06/17/25 Ascorbic Acid [Vitamin C] 1,000 mg PO DAILY 12/21/21 06/17/25 Atorvastatin Calcium [Lipitor] 80 mg PO HS 12/21/21 06/17/25 Cholecalciferol [Vitamin D3 (25 50 mcg PO DAILY 12/21/21 06/17/25 Mcg = 1000 Iu)] Omeprazole 20 mg PO HS 12/21/21 06/17/25 Zinc 50 mg PO DAILY 12/21/21 06/17/25 Empagliflozin [Jardiance] 25 mg PO DAILY 09/12/24 06/17/25 Fluticasone/Umeclidin/Vilanter 1 inh INHALATION DIRECTED 09/12/24 06/17/25 [Trelegy Ellipta 200-62.5-25] Ezetimibe [Zetia] 10 mg PO DAILY 06/13/25 06/17/25 Fish Oil/Dha/Epa [Fish Oil 1,200 1 gm PO BID 06/13/25 06/17/25 mg Fish Oil] Previous Rx's Medication Instructions Recorded Clopidogrel [Plavix] 75 mg PO DAILY #90 tablet 09/17/24 Amoxic-Pot Clav 875-125Mg 1 tab PO Q12HR #20 tab 05/17/25 [Augmentin 875-125] Allergies Allergy/AdvReac Type Severity Reaction Status Date / Time No Known Allergies Allergy Verified 06/19/25 07:44 Review of Systems ROS Statement: Those systems with pertinent positive or pertinent negative responses have been documented in the HPI. ROS Other: All systems not noted in ROS Statement are negative. Past Medical History Past Medical History: Atrial Fibrillation, Deep Vein Thrombosis (DVT), GERD/Reflux, Hyperlipidemia, Hypertension, Osteoarthritis (OA), Pneumonia, Respiratory Disorder Additional Past Medical History / Comment(s): head injury as 4 yr old.; SOB intermittently History of Any Multi-Drug Resistant Organisms: None Reported Past Surgical History: Appendectomy, Heart Catheterization With Stent, Orthopedic Surgery Additional Past Surgical History / Comment(s): back cyst removed, colonoscopy , PTCA WITH STENT, r shoulder, left knee Past Anesthesia/Blood Transfusion Reactions: No Reported Reaction Additional Past Anesthesia/Blood Transfusion Reaction / Comment(s): Pt has never recieved blood. Date of Last Stent Placement:: 11/18/18 Past Psychological History: No Psychological Hx Reported Smoking Status: Never smoker Past Alcohol Use History: Occasional Past Drug Use History: None Reported - Past Family History Sister(s) Family Medical History: Cancer Brother(s) Family Medical History: Cancer Father Family Medical History: Coronary Artery Disease (CAD) Additional Family Medical History / Comment(s): Father had a heart transplant. He in his mid 60's. Mother Family Medical History: Cancer, Myocardial Infarction (DC) Additional Family Medical History / Comment(s): LUNG CANCER General Exam Limitations: no limitations General appearance: alert, in no apparent distress Head exam: Present: atraumatic, normocephalic, normal inspection Eye exam: Present: normal appearance, PERRL, EOMI. Absent: scleral icterus, conjunctival injection, periorbital swelling ENT exam: Present: normal exam, mucous membranes moist Neck exam: Present: normal inspection. Absent: tenderness, meningismus, lymphadenopathy Respiratory exam: Present: normal lung sounds bilaterally. Absent: respiratory distress, wheezes, rales, rhonchi, stridor Cardiovascular Exam: Present: regular rate, normal rhythm, normal heart sounds. Absent: systolic murmur, diastolic murmur, rubs, gallop, clicks GI/Abdominal exam: Present: soft, normal bowel sounds. Absent: distended, tenderness, guarding, rebound, rigid Extremities exam: Present: normal inspection, full ROM, normal capillary refill. Absent: tenderness, pedal edema, joint swelling, calf tenderness Back exam: Present: normal inspection Neurological exam: Present: alert, oriented X3, CN II-XII intact Psychiatric exam: Present: normal affect, normal mood Skin exam: Present: warm, dry, intact, normal color. Absent: rash Course Vital Signs 06/19/25 06/19/25 07:41 10:03 Temperature 97.5 F L 97.7 F Pulse Rate 75 75 Respiratory 18 19 Rate Blood Pressure 131/73 133/90 O2 Sat by Pulse 95 95 Oximetry Medical Decision Making - Medical Decision Making Was pt. sent in by a medical professional or institution (, PA, MENTAL HEALTH AIDE, urgent care, hospital, or prison...) When possible be specific @ -No Did you speak to anyone other than the patient for history (EMS, parent, family, police, friend...)? What history was obtained from this source @ -No Did you review nursing and triage notes (agree or disagree)? Why? @ -I reviewed and agree with nursing and triage notes Were old charts reviewed (outside hosp., previous admission, EMS record, old EKG, old radiological studies, urgent care reports/EKG's, prison records)? Report findings @ -I reviewed the colonoscopy report from June [address] Waters which demonstrated that the patient did have biopsies performed Differential Diagnosis (chest pain, altered mental status, abdominal pain women, abdominal pain men, vaginal bleeding, weakness, fever, dyspnea, syncope, headache, dizziness, GI bleed, back pain, seizure, CVA, palpatations, mental health, musculoskeletal)? @ -Differential GI Bleed: Esophageal varices, aortoenteric fistula, Jacuqe-Garcia, gastritis, peptic ulcer disease, diverticulosis, inflammatory bowel disease, hemorrhoids, fissure, colitis, malignancy, Meckel's diverticulum, this is not meant to be an all- inclusive list. EKG interpreted by me (3pts min.). @ -Not done X-rays interpreted by me (1pt min.). @ -None done CT interpreted by me (1pt min.). @ -None done U/S interpreted by me (1pt. min.). @ -None done What testing was considered but not performed or refused? (CT, X-rays, U/S, labs)? Why? @ -None What meds were considered but not given or refused? Why? @ -None Did you discuss the management of the patient with other professionals (niko hager i.e. , PA, MENTAL HEALTH AIDE, lab, RT, psych nurse, socially responsible investment adviser, national facilities manager, teacher, operations officer trust department, bilingual patient support caseworker)? Give summary @ -Spoke with Dr. Waters. He is agreeable to observing the patient or letting the patient go home with repeat hemoglobin levels. Also recommended that he not take his Plavix Was smoking cessation discussed for >3mins.? @ -No Was critical care preformed (if so, how long)? @ -No Were there social determinants of health that impacted care today? How? (Homelessness, low income, unemployed, alcoholism, drug addiction, transportation, low edu. Level, literacy, decrease access to med. care, [facility], rehab)? @ -No Was there de-escalation of care discussed even if they declined (Discuss DNR or withdrawal of care, Hospice)? DNR status @ -No What co-morbidities impacted this encounter? (DM, HTN, Smoking, COPD, CAD, Cancer, CVA, ARF, Chemo, Hep., AIDS, mental health diagnosis, sleep apnea, morbid obesity)? @ -None Was patient admitted / discharged? Hospital course, mention meds given and route, prescriptions, significant lab abnormalities, going to OR and other pertinent info. @ -Upon arrival patient seen and evaluated in room 22. Thorough history and physical exam was performed. I did recommend a rectal exam however patient would prefer to go to the bathroom and show me his output. Patient does fill the toilet bowl with blood. Laboratory studies are conducted. Hemoglobin within normal limits. I did call and speak with Dr. Waters. He does give the patient 2 options. He states the patient can go home and have repeat blood counts done in the next couple of days. Stop taking his Plavix or patient can be admitted overnight for observation. Patient adamantly wants to go home. I informed him to stop taking his Plavix. Follow-up with his primary care doctor or surgeon to have repeat laboratory studies conducted and return for any signs of weakness, syncope, shortness of breath. Patient was agreeable to this and he was discharged in stable condition Undiagnosed new problem with uncertain prognosis? @ -No Drug Therapy requiring intensive monitoring for toxicity (Heparin, Nitro, Insulin, Cardizem)? @ -No Were any procedures done? @ -No Diagnosis/symptom? @ -Hematochezia status post colonoscopy with biopsy Acute, or Chronic, or Acute on Chronic? @ -Acute Uncomplicated (without systemic symptoms) or Complicated (systemic symptoms)? @ -Complicated Side effects of treatment? @ -No Exacerbation, Progression, or Severe Exacerbation? @ -No Poses a threat to life or bodily function? How? (Chest pain, USA, DC, pneumonia, PE, COPD, DKA, ARF, appy, cholecystitis, CVA, Diverticulitis, Homicidal, Suicidal, threat to staff... and all critical care pts) @ -No - Lab Data Result diagrams: 06/19/25 08:25 06/19/25 08:25 Lab Results 06/19/25 06/19/25 06/19/25 Range/Units 08:15 08:20 08:25 WBC 5.77 (4.50-10.00) 10*3/uL RBC 6.34 H (4.40-5.60) 10*6/uL Hgb 16.0 (13.0-17.0) g/dL Hct 49.7 (39.6-50.0) % MCV 78.4 L (80.0-97.0) fL MCH 25.2 L (27.0-32.0) pg MCHC 32.2 (32.0-37.0) g/dL Plt Count 185 (140-440) 10*3/uL MPV 9.6 (9.5-12.2) fL Immature Gran % (Auto) 0.3 % Neutrophils % 68.0 % Lymphocytes % 16.5 % Monocytes % 12.8 % Eosinophils % 1.7 % Basophils % 0.7 % Immature Gran # 0.02 (0.00-0.04) 10*3/uL Neutrophils # 3.92 (1.80-7.70) 10*3/uL Lymphocytes # 0.95 (0.90-5.00) 10*3/uL Monocytes # 0.74 (0.20-1.00) 10*3/uL Eosinophils # 0.10 (0.04-0.35) 10*3/uL Basophils # 0.04 (0.00-0.10) 10*3/uL APTT (22.0-30.0) sec Sodium (137-145) mmol/L Potassium (3.5-5.1) mmol/L Chloride (98-107) mmol/L Carbon Dioxide (22-30) mmol/L Anion Gap mmol/L BUN (9-20) mg/dL Creatinine (0.66-1.25) mg/dL Est GFR (CKD-EPI)AfAm (>60 ml/min/1.73 sqM) Est GFR (CKD-EPI)NonAf (>60 ml/min/1.73 sqM) Glucose (74-99) mg/dL Plasma Lactic Acid Gutierrez (0.7-2.0) mmol/L Calcium (8.4-10.2) mg/dL Magnesium (1.6-2.3) mg/dL Total Bilirubin (0.2-1.3) mg/dL AST (17-59) U/L ALT (4-49) U/L Alkaline Phosphatase (38-126) U/L Troponin I (0.000-0.034) ng/mL Total Protein (6.3-8.2) g/dL Albumin (3.5-5.0) g/dL Blood Type O Positive Blood Type Confirm O Positive Blood Type Recheck No Previous Record Bld Type Recheck Status CABO Indicated Antibody Screen NEGATIVE Spec Expiration Date 06/22/2025232406/19/25 06/19/25 06/19/25 Range/Units 08:25 08:25 08:25 WBC (4.50-10.00) 10*3/uL RBC (4.40-5.60) 10*6/uL Hgb (13.0-17.0) g/dL Hct (39.6-50.0) % MCV (80.0-97.0) fL MCH (27.0-32.0) pg MCHC (32.0-37.0) g/dL Plt Count (140-440) 10*3/uL MPV (9.5-12.2) fL Immature Gran % (Auto) % Neutrophils % % Lymphocytes % % Monocytes % % Eosinophils % % Basophils % % Immature Gran # (0.00-0.04) 10*3/uL Neutrophils # (1.80-7.70) 10*3/uL Lymphocytes # (0.90-5.00) 10*3/uL Monocytes # (0.20-1.00) 10*3/uL Eosinophils # (0.04-0.35) 10*3/uL Basophils # (0.00-0.10) 10*3/uL APTT 31.6 H (22.0-30.0) sec Sodium 140 (137-145) mmol/L Potassium 4.2 (3.5-5.1) mmol/L Chloride 108 H (98-107) mmol/L Carbon Dioxide 21 L (22-30) mmol/L Anion Gap 11 mmol/L BUN 15 (9-20) mg/dL Creatinine 0.83 (0.66-1.25) mg/dL Est GFR (CKD-EPI)AfAm >90 (>60 ml/min/1.73 sqM) Est GFR (CKD-EPI)NonAf >90 (>60 ml/min/1.73 sqM) Glucose 132 H (74-99) mg/dL Plasma Lactic Acid Gutierrez 1.3 (0.7-2.0) mmol/L Calcium 9.1 (8.4-10.2) mg/dL Magnesium 2.0 (1.6-2.3) mg/dL Total Bilirubin 0.7 (0.2-1.3) mg/dL AST 37 (17-59) U/L ALT 39 (4-49) U/L Alkaline Phosphatase 117 (38-126) U/L Troponin I (0.000-0.034) ng/mL Total Protein 7.3 (6.3-8.2) g/dL Albumin 4.0 (3.5-5.0) g/dL Blood Type Blood Type Confirm Blood Type Recheck Bld Type Recheck Status Antibody Screen Spec Expiration Date 06/19/25 Range/Units 08:25 WBC (4.50-10.00) 10*3/uL RBC (4.40-5.60) 10*6/uL Hgb (13.0-17.0) g/dL Hct (39.6-50.0) % MCV (80.0-97.0) fL MCH (27.0-32.0) pg MCHC (32.0-37.0) g/dL Plt Count (140-440) 10*3/uL MPV (9.5-12.2) fL Immature Gran % (Auto) % Neutrophils % % Lymphocytes % % Monocytes % % Eosinophils % % Basophils % % Immature Gran # (0.00-0.04) 10*3/uL Neutrophils # (1.80-7.70) 10*3/uL Lymphocytes # (0.90-5.00) 10*3/uL Monocytes # (0.20-1.00) 10*3/uL Eosinophils # (0.04-0.35) 10*3/uL Basophils # (0.00-0.10) 10*3/uL APTT (22.0-30.0) sec Sodium (137-145) mmol/L Potassium (3.5-5.1) mmol/L Chloride (98-107) mmol/L Carbon Dioxide (22-30) mmol/L Anion Gap mmol/L BUN (9-20) mg/dL Creatinine (0.66-1.25) mg/dL Est GFR (CKD-EPI)AfAm (>60 ml/min/1.73 sqM) Est GFR (CKD-EPI)NonAf (>60 ml/min/1.73 sqM) Glucose (74-99) mg/dL Plasma Lactic Acid Gutierrez (0.7-2.0) mmol/L Calcium (8.4-10.2) mg/dL Magnesium (1.6-2.3) mg/dL Total Bilirubin (0.2-1.3) mg/dL AST (17-59) U/L ALT (4-49) U/L Alkaline Phosphatase (38-126) U/L Troponin I <0.012 (0.000-0.034) ng/mL Total Protein (6.3-8.2) g/dL Albumin (3.5-5.0) g/dL Blood Type Blood Type Confirm Blood Type Recheck Bld Type Recheck Status Antibody Screen Spec Expiration Date Disposition Clinical Impression: Hematochezia Disposition: HOME SELF-CARE Condition: Stable Instructions (If sedation given, give patient instructions): Gastrointestinal Bleeding (ED) Additional Instructions: Please stop your Xarelto and Plavix until Tuesday. Monitor your symptoms. Follow-up with Dr. Waters and return for any new or worsening symptoms Is patient prescribed a controlled substance at d/c from ED?: No Referrals: Sang Kaur DO [Primary Care Provider] - 1-2 days Kirstie Waters DO [Doctor of Osteopathic Medicine] - 1-2 days Time of Disposition: 09:54
[2025-06-19 10:12] VITALS: BP 133/90; RESP 19; TEMP 97.7
== END 2025-06-19 10:05 | disposition home or self-care (01) ==
LOC: EC 07:39
DX: K92.1 Melena (principal)
CPT/HCPCS: 36415; 80053; 83605; 83735; 84484; 85025; 85730; 86850; 86900; 86901; 99284